=== PATIENT | female | born 1985 | race Caucasian/White ===

== ENCOUNTER 2020-08-23 15:26 | Inpatient (IN) ==
[2020-08-23] MEDS ORDERED: MULTI-VITAMIN INFUSION 10 ML, THIAMINE HCL 100 MG, FOLIC ACID 1 MG in SODIUM CHLORIDE 0... IV ONE (15:58)
[2020-08-23] MEDS ORDERED: ONDANSETRON INJ 2 MG/ML 2 ML VIAL IV STA (15:58)
--- NOTE | 2020-08-23 16:05 | Emergency Department Note ---
History of Present Illness General Chief complaint: Alcohol Withdrawal Time Seen by Provider: 08/23/20 15:50 Source: patient History of Present Illness Provider complaint: Chest pain Onset (ago): hour(s) Location: chest Radiation: non-radiation Pain Consistency: + constant Maximum Pain Intensity: 5 Quality: + dull Relieved By: + none Exacerbated By: + movement and + other (Palpation) Associated symptoms: + cough ("Regular cough "), + nausea/vomiting and + other (Diarrhea); no fever/chills, no headaches and no shortness of breath This is a 35-year-old female who presents with several complaints today. She states that she did not feel well this morning. She feels lightheaded but cannot explain further why she does not feel well. She does state that she has had chest pain since this morning which she describes as a dull pain in the sternal area. She states it is worse if she moves around or touches the area. She denies any associated shortness of breath. She states that she has a "regular cough "she states that she has had her COVID-19 vaccinations. She denies any fever chills. She does state that she has had vomiting and diarrhea as well without abdominal pain. She denies any urinary symptoms. She states that the chest pain she has today is similar to chest pain she has had in the past. She denies any leg swelling or pain. She denies . She states that she only drank a beer today. She denies any headache and states that she has not fallen or injured her head. Home Medications Medication Instructions Recorded Confirmed Type albuterol sulfate 2 puff INHALATION QID PRN 07/21/20 08/23/20 History budesonide-formoterol [Symbicort] 2 puff INHALATION BID 07/21/20 08/23/20 History docusate sodium [Colace] 100 mg PO BID PRN 08/19/20 08/23/20 History naproxen sodium [Aleve] 220 mg PO BID PRN 08/19/20 08/23/20 History aspirin 325 mg PO Q4H PRN 08/23/20 08/23/20 History Allergies Allergy/AdvReac Type Severity Reaction Status Date / Time amoxicillin Allergy Intermediate Hives Verified 08/19/20 20:09 clavulanic acid Allergy Intermediate Hives Verified 08/19/20 20:09 [From Augmentin] Penicillins Allergy Intermediate Hives Verified 08/19/20 20:09 sulfamethoxazole Allergy Intermediate Hives Verified 08/19/20 20:09 [From Septra] trimethoprim [From Septra] Allergy Intermediate Hives Verified 08/19/20 20:09 famotidine [From Pepcid] Allergy Mild Red Skin Unverified 08/19/20 20:10 Splotches Past Med/Surg History Medical History Kidney stone Pulmonary nodule seen on imaging study Tobacco use disorder Surgical History No significant past surgical history Social History Smoking Status: Never smoker Tobacco Type: Cigarettes Preferred Language: Amharic Feels Safe at Home: Yes Review of Systems See HPI for pertinent positives & negatives. and A total of 10 systems reviewed and were otherwise negative Physical Exam Vital Signs Vital Signs - 24 hr 08/23/20 15:29 08/23/20 15:31 08/23/20 15:41 Temperature 37.7 C H Temperature Source Oral Pulse Rate 108 H 115 H 109 H Pulse Rate from SpO2 Sensor 107 H 109 H Pulse Rhythm Regular Pulse Strength Normal Respiratory Rate 18 20 22 Respiratory Effort / Characteristics Non-Labored Spontaneous Respiratory Depth Normal Respiratory Pattern Regular Blood Pressure 151/102 H 151/102 H Blood Pressure Mean 118 118 Blood Pressure Position Sitting Pulse Oximetry 96 98 97 Oxygen Delivery Method Room Air Sepsis Recent Fever Within 48 Hours No Sepsis New/Unexplained Change in Mental Status No Sepsis Action Taken by Nursing No Action Required 08/23/20 16:00 08/23/20 16:05 08/23/20 16:13 Temperature Temperature Source Pulse Rate 112 H 122 H 121 H Pulse Rate from SpO2 Sensor 110 H Pulse Rhythm Pulse Strength Respiratory Rate 16 20 17 Respiratory Effort / Characteristics Respiratory Depth Respiratory Pattern Blood Pressure 132/98 Blood Pressure Mean 109 Blood Pressure Position Pulse Oximetry 96 96 Oxygen Delivery Method Room Air Sepsis Recent Fever Within 48 Hours Sepsis New/Unexplained Change in Mental Status Sepsis Action Taken by Nursing 08/23/20 16:14 08/23/20 16:30 08/23/20 16:31 Temperature Temperature Source Pulse Rate 115 H 105 H 105 H Pulse Rate from SpO2 Sensor 114 H 105 H 106 H Pulse Rhythm Pulse Strength Respiratory Rate 23 17 18 Respiratory Effort / Characteristics Respiratory Depth Respiratory Pattern Blood Pressure 132/98 Blood Pressure Mean 109 Blood Pressure Position Pulse Oximetry 96 95 95 Oxygen Delivery Method Sepsis Recent Fever Within 48 Hours Sepsis New/Unexplained Change in Mental Status Sepsis Action Taken by Nursing 08/23/20 17:00 08/23/20 17:01 08/23/20 17:30 Temperature Temperature Source Pulse Rate 105 H 105 H 101 H Pulse Rate from SpO2 Sensor 106 H 101 H 102 H Pulse Rhythm Pulse Strength Respiratory Rate 15 16 Respiratory Effort / Characteristics Respiratory Depth Respiratory Pattern Blood Pressure 143/88 H 133/92 Blood Pressure Mean 106 105 Blood Pressure Position Pulse Oximetry 95 96 96 Oxygen Delivery Method Sepsis Recent Fever Within 48 Hours Sepsis New/Unexplained Change in Mental Status Sepsis Action Taken by Nursing 08/23/20 17:31 08/23/20 18:09 08/23/20 18:10 Temperature Temperature Source Pulse Rate 99 H 103 H Pulse Rate from SpO2 Sensor 98 H 105 H 103 H Pulse Rhythm Pulse Strength Respiratory Rate 12 Respiratory Effort / Characteristics Respiratory Depth Respiratory Pattern Blood Pressure 132/105 H Blood Pressure Mean 114 Blood Pressure Position Pulse Oximetry 95 97 96 Oxygen Delivery Method Sepsis Recent Fever Within 48 Hours Sepsis New/Unexplained Change in Mental Status Sepsis Action Taken by Nursing 08/23/20 18:30 08/23/20 18:31 Temperature Temperature Source Pulse Rate 101 H 100 H Pulse Rate from SpO2 Sensor 103 H 99 H Pulse Rhythm Pulse Strength Respiratory Rate 17 19 Respiratory Effort / Characteristics Respiratory Depth Respiratory Pattern Blood Pressure 137/94 Blood Pressure Mean 108 Blood Pressure Position Pulse Oximetry 96 95 Oxygen Delivery Method Sepsis Recent Fever Within 48 Hours Sepsis New/Unexplained Change in Mental Status Sepsis Action Taken by Nursing Constitutional: Vital signs reviewed. Eyes: Pupils are equal round reactive to light. Conjunctiva are noninjected. ENT: Pharynx is clear without erythema or exudate. Mucous membranes are dry. Neck supple without meningeal signs. Respiratory: Clear to auscultation bilaterally. Breath sounds are equal bilaterally. Cardiovascular: Mild tachycardia. Heart rate 105. GI: Soft, nondistended and nontender. Bowel sounds are present. Musculoskeletal: No peripheral edema. No lower extremity tenderness. Tenderness to the mid sternum. Integumentary: No cyanosis. or jaundice. Neurological: The patient is very somnolent but does follow commands and answers questions. She moves all extremities. Resting tremors. Psychiatric: She appears intoxicated. Course Administered Medications Discontinued Medications Multivitamins 10 ml/ Thiamine HCl 100 mg/ Folic Acid 1 mg/Sodium Chloride 1,011.2 mls @ 1,011.2 mls/hr IV .Q1H ONE Stop: 08/23/20 16:57 Last Admin: 08/23/20 17:39 Dose: 1,011.2 mls/hr Documented by: [id number] Lorazepam (Ativan) 1 mg in 2 mls @ 2 mls/min IV NOW STA Stop: 08/23/20 16:16 Last Admin: 08/23/20 16:18 Dose: 2 mls/min Documented by: [id number] Ondansetron HCl (Ondansetron Inj 2 Mg/Ml 2 Ml Vial) 4 mg IV NOW STA Stop: 08/23/20 15:59 Last Admin: 08/23/20 16:12 Dose: 4 mg Documented by: [id number] Critical Care Time Critical Care Time: Yes Total Critical Care Time: 35 I have personally spent approximately 35 minutes of critical care time in the direct management of this patient. This includes bedside care, interpretation of diagnostic studies, and testing, discussion with consultants, patient, and family members, and other required patient management activities. These minutes are in excess of all separately billable procedures. Medical Decision Making Differential Diagnosis Alcohol intoxication, alcohol withdrawal, metabolic derangement, pleurisy, costochondritis, aspiration pneumonia Medical Records Attestation: I reviewed the patient's medical records. I did perform a limited focused review of portions of the patient's old chart on the electronic medical record. The patient was seen here for chest pain July 21 and had a negative CT of the chest with IV contrast other than pulmonary nodules. She was seen here again for alcohol intoxication and chest pain August [address] angiogram of her chest which again showed nodules without any pulmonary embolism or acute abnormality. She was seen again 2 days later for flank pain and had a CT of the abdomen pelvis which did not demonstrate any acute abnormalities. Home Medications Current Medication List: was personally reviewed by me Laboratory Data Attestation: I reviewed the patient's lab results. Result diagrams: 08/23/20 15:50 08/23/20 15:50 Lab Results 08/23/20 08/23/20 08/23/20 Range/Units 15:50 15:50 16:20 WBC 6.10 (4.8-10.8) K/uL RBC 4.79 (4.2-5.4) M/uL Hgb 15.3 (12.0-16.0) g/dL Hct 44.5 (37-47) % MCV 92.9 (80-100) fL MCH 31.9 (25-34) pg MCHC 34.4 (32-36) g/dL RDW Std Deviation 50.0 H (36.4-46.3) fL RDW Coeff of Yulissa 15.0 H (11.5-14.5) % Plt Count 348 (130-400) K/uL MPV 9.2 (7.4-10.4) fL Immature Gran % (Auto) 0.2 % Neut % (Auto) 62.8 % Lymph % (Auto) 27.0 % [place] % (Auto) 9.5 % Eos % (Auto) 0.2 % Baso % (Auto) 0.3 % Neut # (Auto) 3.83 (1.4-6.5) K/uL Lymph # (Auto) 1.65 (1.2-3.4) K/uL [place] # (Auto) 0.58 (0.11-0.59) K/uL Eos # (Auto) 0.01 (0-0.5) K/uL Baso # (Auto) 0.02 (0-0.2) K/uL Immature Gran # (Auto) 0.01 (0.00-0.02) K/uL Sodium 140 (136-145) mmol/L Potassium 3.2 L (3.5-5.1) mmol/L Chloride 106 (98-107) mmol/L Carbon Dioxide 22 (21-32) mmol/L Anion Gap 12.0 H (3-11) BUN 12 (7-18) mg/dl Creatinine 0.74 (0.6-1.2) mg/dl Est Cr Clr Drug Dosing 113.3 ml/min Est GFR ( Amer) 123.4 ml/min Est GFR (Non-Af Amer) 106.4 ml/min BUN/Creatinine Ratio 16.2 (10-20) Glucose 149 H (70-99) mg/dl Calcium 8.4 L (8.5-10.1) mg/dl Total Bilirubin 0.6 (0.2-1) mg/dl AST 26 (15-37) U/L ALT 37 (12-78) U/L Alkaline Phosphatase 97 (45-117) U/L Troponin I < 0.015 (0-0.045) ng/ml Total Protein 7.8 (6.4-8.2) gm/dl Albumin 3.9 (3.4-5.0) gm/dl Globulin 3.9 (2.5-4.0) gm/dl Albumin/Globulin Ratio 1.0 (0.9-2) Lipase 152 (73-393) U/L Ethyl Alcohol mg/dL 18.8 H (0-3) mg/dl COVID-19 Eval Order 08/23/20 Range/Units 19:05 WBC (4.8-10.8) K/uL RBC (4.2-5.4) M/uL Hgb (12.0-16.0) g/dL Hct (37-47) % MCV (80-100) fL MCH (25-34) pg MCHC (32-36) g/dL RDW Std Deviation (36.4-46.3) fL RDW Coeff of Yulissa (11.5-14.5) % Plt Count (130-400) K/uL MPV (7.4-10.4) fL Immature Gran % (Auto) % Neut % (Auto) % Lymph % (Auto) % [place] % (Auto) % Eos % (Auto) % Baso % (Auto) % Neut # (Auto) (1.4-6.5) K/uL Lymph # (Auto) (1.2-3.4) K/uL [place] # (Auto) (0.11-0.59) K/uL Eos # (Auto) (0-0.5) K/uL Baso # (Auto) (0-0.2) K/uL Immature Gran # (Auto) (0.00-0.02) K/uL Sodium (136-145) mmol/L Potassium (3.5-5.1) mmol/L Chloride (98-107) mmol/L Carbon Dioxide (21-32) mmol/L Anion Gap (3-11) BUN (7-18) mg/dl Creatinine (0.6-1.2) mg/dl Est Cr Clr Drug Dosing ml/min Est GFR ( Amer) ml/min Est GFR (Non-Af Amer) ml/min BUN/Creatinine Ratio (10-20) Glucose (70-99) mg/dl Calcium (8.5-10.1) mg/dl Total Bilirubin (0.2-1) mg/dl AST (15-37) U/L ALT (12-78) U/L Alkaline Phosphatase (45-117) U/L Troponin I (0-0.045) ng/ml Total Protein (6.4-8.2) gm/dl Albumin (3.4-5.0) gm/dl Globulin (2.5-4.0) gm/dl Albumin/Globulin Ratio (0.9-2) Lipase (73-393) U/L Ethyl Alcohol mg/dL (0-3) mg/dl COVID-19 Eval Order Covid19 at [facility] Imaging Data Radiologist's Impression: Chest X-Ray 08/23/20 15:58 SINGLE VIEW CHEST CLINICAL HISTORY: Atypical chest pain. FINDINGS: An AP, portable, upright chest radiograph is correlated with chest CT dated 08/17/2020. The cardiomediastinal silhouette is unremarkable. The lungs and pleural spaces are clear. No pneumothorax is seen. The bony thorax is grossly intact. IMPRESSION: No active disease in the chest. ACT 112: Negative or not required by law. Electronically signed by: Zach Back M.D. 08/23/2020 5:[address] 08/23/20 17:20 CT SCAN OF THE BRAIN WITHOUT IV CONTRAST CLINICAL HISTORY: Hallucinations. Change in mental status. Alcohol withdrawal. COMPARISON STUDY: No priors. TECHNIQUE: Unenhanced axial CT scan of the brain is performed from the vertex to the skull base. A dose lowering technique was utilized adhering to the principles of ALARA. The patient was scanned twice due to motion artifact. CT DOSE: 1784.44 mGy.cm FINDINGS: Brain parenchyma: The brain parenchyma is normal in appearance. There is no hemorrhage, mass effect, or evidence of acute territorial ischemia by CT criteria. Epperson-white matter differentiation is preserved. No extra-axial fluid collection is seen. Ventricles, sulci, cisterns: Normal in configuration. Intracranial vasculature: The visualized intracranial vasculature at the skull base is normal in appearance. Calvarium: Unremarkable. Sinuses and mastoids: The visualized paranasal sinuses are clear. The mastoid air cells are well pneumatized. Orbits: The bony orbits are grossly intact. IMPRESSION: No acute intracranial abnormality. ACT 112: Negative or not required by law. Electronically signed by: Zach Back M.D. 08/23/2020 6:18 PM ECG Data Attestation: I personally reviewed and interpreted this ECG as follows: Indication: + chest pain Rhythm: + sinus tachycardia ECG [place]: + Normal ECG ST segments: no ST elevation ECG Findings: no PVCs MDM Narrative I did evaluate the patient as noted above. The patient is presenting with chest pain and not feeling well but cannot further describe her symptoms other than feeling very lightheaded and vomiting. She has not had alcohol except for 1 can of beer today. She is initially very somnolent on my evaluation but does answer questions. She is somewhat slow to respond to these questions. Once I left the room the nurses called me back to state that the patient was extremely agitated, trying to get out of bed and hallucinating. IV access was established. I did treat her with Ativan 1 mg IV. She was also given a banana bag IV as well as Zo tera IV. I did place an order for continuous cardiac monitoring. The monitor showed sinus tachycardia at a rate of 105 bpm. I did order and personally review the patient's 12-lead EKG as described above. She has sinus tachycardia without dysrhythmia. I did order and personally reviewed the images of the patient's chest x-ray as described above. There is no evidence of aspiration pneumonia or acute process. I did reassess the patient. She is very somnolent at this time and her heart rate and blood pressure has improved. I did order and review the patient's blood work as noted in the electronic medical record. CBC is unremarkable without leukocytosis or anemia. Electrolytes demonstrate a potassium of 3.2. Serum alcohol is 18. I did order a CT of the head. I did review the images myself as well as the radiology report as described above. There is no evidence of acute intracranial abnormality. I did reassess the patient. She is less somnolent at this time and her heart rate and blood pressure are increasing. I did hold off on further benzodiazepine treatment as the patient is still rather somnolent. I did talk to her about her test results and she stated that she wished to be hospitalized and she wants to stop drinking. She does state that she had withdrawal seizures about 2 years ago. I did order a COVID-19 test. I did discuss the case with the hospitalist and case worker. Impression & Plan Impending delirium tremens, Acute hypokalemia Discharge Plan Visit Data Chief Complaint: Alcohol Withdrawal ED Provider: Saurabh Connors Discharge Problem: Impending delirium tremens, Acute hypokalemia Patient Disposition: Being Evaluated by Hospitalist Forms Stand Alone Forms: [facility], Suicide Prevention Resources Prescriptions Prescriptions: No Action albuterol sulfate 90 mcg/actuation Hfa Aerosol Inhaler 2 puff INHALATION QID PRN (Reason: Shortness Of Breath Or Wheezing) RF: 0 budesonide-formoterol [Symbicort] 80-4.5 mcg/actuation Hfa Aerosol Inhaler 2 puff INHALATION BID RF: 0 docusate sodium [Colace] 100 mg capsule 100 mg PO BID PRN (Reason: Constipation) RF: 0 naproxen sodium [Aleve] 220 mg Tablet 220 mg PO BID PRN (Reason: Pain) RF: 0 aspirin 325 mg Tablet 325 mg PO Q4H PRN (Reason: Pain) RF: 0 Referrals Referrals: PCP,NO [Primary Care Provider] -
[2020-08-23 16:08] LABS: Basophils # (auto) 0.02 K/uL (0-0.2); Basophils % (auto) 0.3 %; Eosinophils # (auto) 0.01 K/uL (0-0.5); Eosinophils % (auto) 0.2 %; Hematocrit (blood only) 44.5 % (37-47); Hemoglobin 15.3 g/dL (12.0-16.0); Immature Granulocytes # (auto) 0.01 K/uL (0.00-0.02); Immature Granulocytes % (auto) 0.2 %; Lymphocytes # (auto) 1.65 K/uL (1.2-3.4); Mean Corpuscular Hemoglobin 31.9 pg (25-34); Mean Corpuscular Hgb Conc 34.4 g/dL (32-36); Mean Corpuscular Volume 92.9 fL (80-100); Mean Platelet Volume 9.2 fL (7.4-10.4); Monocytes # (auto) 0.58 K/uL (0.11-0.59); Monocytes % (auto) 9.5 %; Neutrophils # (auto) 3.83 K/uL (1.4-6.5); Neutrophils % (auto) 62.8 %; Platelet Count 348 K/uL (130-400); Red Blood Count 4.79 M/uL (4.2-5.4)
[2020-08-23] MEDS ORDERED: LORazepam 1 MG/2 ML VIAL IV STA (16:15)
[2020-08-23 16:26] LABS: Alanine Aminotransferase 37 U/L (12-78); Albumin Level 3.9 gm/dl (3.4-5.0); Aspartate Aminotransferase 26 U/L (15-37); BUN Creatinine Ratio 16.2 (10-20); Blood Urea Nitrogen 12 mg/dl (7-18); Calcium 8.4 mg/dl (8.5-10.1); Carbon Dioxide 22 mmol/L (21-32); Chloride 106 mmol/L (98-107); Creatinine Clr Calc Pharmacy 113.3 ml/min; Est GFR (African American) 123.4 ml/min; Est GFR (Non-African American) 106.4 ml/min; Glucose 149 mg/dl (70-99); Lipase 152 U/L (73-393); Potassium 3.2 mmol/L (3.5-5.1); Sodium 140 mmol/L (136-145)
[2020-08-23 16:30] LABS: Alkaline Phosphatase 97 U/L (45-117); Bilirubin,Total 0.6 mg/dl (0.2-1); Globulin 3.9 gm/dl (2.5-4.0); Total Protein 7.8 gm/dl (6.4-8.2); Troponin I < 0.015 ng/ml (0-0.045)
--- NOTE | 2020-08-23 17:15 | XRay Report ---
SINGLE VIEW CHEST CLINICAL HISTORY: Atypical chest pain. FINDINGS: An AP, portable, upright chest radiograph is correlated with chest CT dated 08/17/2020. The cardiomediastinal silhouette is unremarkable. The lungs and pleural spaces are clear. No pneumothorax is seen. The bony thorax is grossly intact. IMPRESSION: No active disease in the chest. ACT 112: Negative or not required by law. Electronically signed by: Zach Back M.D. 08/23/2020 5:14 PM
--- NOTE | 2020-08-23 18:20 | CT Scan Report ---
CT SCAN OF THE BRAIN WITHOUT IV CONTRAST CLINICAL HISTORY: Hallucinations. Change in mental status. Alcohol withdrawal. COMPARISON STUDY: No priors. TECHNIQUE: Unenhanced axial CT scan of the brain is performed from the vertex to the skull base. A d ose lowering technique was utilized adhering to the principles of ALARA. The patient was scanned twic e due to motion artifact. CT DOSE: 1784.44 mGy.cm FINDINGS: Brain parenchyma: The brain parenchyma is normal in appearance. There is no hemorrhage, mass effect, or evidence of acute territorial ischemia by CT criteria. Epperson-white matter differentiation is preser lisa. No extra-axial fluid collection is seen. Ventricles, sulci, cisterns: Normal in configuration. Intracranial vasculature: The visualized intracranial vasculature at the skull base is normal in appe arance. Calvarium: Unremarkable. Sinuses and mastoids: The visualized paranasal sinuses are clear. The mastoid air cells are well pneu matized. Orbits: The bony orbits are grossly intact. IMPRESSION: No acute intracranial abnormality. ACT 112: Negative or not required by law. Electronically signed by: Zach aBck M.D. 08/23/2020 6:18 PM
[2020-08-23] MEDS ORDERED: LORazepam 0.5 MG/1 ML VIAL IV STA (20:12)
[2020-08-23] MEDS ORDERED: ONDANSETRON INJ 2 MG/ML 2 ML VIAL IV PRN (20:32)
[2020-08-23] MEDS ORDERED: POTASSIUM CHLORIDE / WTR 10 MEQ/100 ML PLCT IV STA (20:32)
--- NOTE | 2020-08-23 20:44 | History & Physical Report ---
Date of Service August 23, 2020 Assessment & Plan (1) Alcohol withdrawal: 35 yo F Hx alcohol use disorder admitted for alcohol withdrawal with perceptual disturbance. Alcohol use disorder, in active withdrawal: - Presented to ER with sensation of impending doom, confusion, chest pressure/heart racing, nausea/vomiting. - CXR normal, EKG with sinus tachycardia, CT Head without acute pathology. - History of alcohol use disorder, reports she drinks 5-6 16oz cans of beer daily. - Endorses one 16oz can today around 2pm before she started to feel unwell. EtOH level in ER today 18.8. - Last seen 08/19 for abdominal pain in ER, as well as on 08/17 /and 07/21 for vague complaints; at these visits EtOH level was elevated as well. - Desires to quit drinking alcohol, and reports success in the past with quitting. Has been drinking as above for at least the last several months. - Did provide patient with my name to be seen when discharged from hospital. Patient does not currently have a PCP. Has been on medications for EtOH cessation in the past. - Given banana bag in ER; will continue daily thiamine and folate supplement. - Placed on clonidine 0.1mg PO BID, with AWSS active protocol given continued symptoms. - Med [facility] for cardiac monitoring, AWSS monitoring. - Zofran prn nausea/vomiting. - Restricted to clears given no N/V in ER; will make NPO if N/V despite clears. Abdominal pain / Hepatic Steatosis: - Mild abdominal pain RUQ on exam. - CTAP performed 08/19 (ER visit for abdominal pain) without evidence of acute pathology. - Notable for hepatic steatosis and hepatomegaly, could be the cause of her symptoms of mild RUQ pain. - LFTs, lipase normal this visit. - Does take aspirin 325 at home frequently, will check salicylate level. - UA with reflex UCx ordered, pending. Chest pain: - Complaints on previous ER visits of vague chest pain. - CTA Chest 08/17 without PE, did show 6mm lingular pulmonary nodule. - This visit EKG with sinus tachycardia, troponin negative. - Unlikely to be anginal in cause, appears to correlate with anxiety and alcohol withdrawal. - Repeat troponin ordered for 10pm. Pulmonary nodule: - Noted on CTA Chest 08/17; likely needs outpatient follow up. Code Status: FULL CODE FEN: Clear liquid diet, if intolerant moving forward would make NPO DVT ppx: low risk given age and ambulatory function, ambulate ad tarik with assistance given presenting symptoms, with SCDs when in bed Dispo: Med/Surg with Telemetry History of Present Illness Chief Complaint: chest pain, nausea, vomiting Primary Care Provider: NO PCP 35 yo F Hx alcohol use disorder presented to ER this afternoon for complaints of "feeling unwell", abdominal pain, chest pressure. Has been seen several times over the last week for similar symptoms. She reports alcohol use history and admits to drinking about 5-6 16oz beers daily. Today had one (last drink around 2pm) which is around when she started feeling unwell. No complaints of shortness of breath. Has had alcohol withdrawal in the past, does not report history of seizures. She has also stopped drinking in the past with the help of oral medications. ER course today included CT Head (normal), labwork without elevation in LFTs or lipase, elevated EtOH level, K of 3.2. Vitals with tachycardia, elevated BP, nearly febrile at 37.7degrees C. Previous ER course over the last week includes CTA Chest negative for PE, did note 6mm pulmonary nodule in lingula; CTAP noted hepatic steatosis and hepatomegaly. On my interview patient endorses sensation of repeated humberto vu, asking me several times "did you tell me that already?". Does not endorse current chest pain or pressure, nausea. Admits to some RUQ mild abdominal pain. Also admits to urinary frequency. Overall reports desire to quit using alcohol, but is unsure what medium she will use to quit (inpatient, outpatient, AA, etc). Patient does not have a PCP. Allergies Allergy/AdvReac Type Severity Reaction Status Date / Time amoxicillin Allergy Intermediate Hives Verified 08/25/20 02:27 clavulanic acid Allergy Intermediate Hives Verified 08/25/20 02:27 [From Augmentin] Penicillins Allergy Intermediate Hives Verified 08/25/20 02:27 sulfamethoxazole Allergy Intermediate Hives Verified 08/25/20 02:27 [From Septra] trimethoprim [From Septra] Allergy Intermediate Hives Verified 08/25/20 02:27 famotidine [From Pepcid] Allergy Mild Red Skin Unverified 08/25/20 02:27 Splotches Home Medications Medication Instructions Recorded Confirmed Type albuterol sulfate 2 puff INHALATION QID PRN 07/21/20 08/25/20 History budesonide-formoterol [Symbicort] 2 puff INHALATION BID 07/21/20 08/25/20 History docusate sodium [Colace] 100 mg PO BID PRN 08/19/20 08/25/20 History naproxen sodium [Aleve] 220 mg PO BID PRN 08/19/20 08/25/20 History aspirin 325 mg PO Q4H PRN 08/23/20 08/25/20 History Past Med/Surg History Medical History Kidney stone Pulmonary nodule seen on imaging study Tobacco use disorder Surgical History No significant past surgical history Social History Smoking Status: Current every day smoker Tobacco Type: Cigarettes Cigarettes Per Day: 20; Second Hand Exposure: Yes; Hx Alcohol Use: Yes Alcohol type: hard liquor Hx Substance Use: No Preferred Language: Bruneian Communication Ability: Effective Braider Operator Required: No Beliefs That Will Affect Care: None Current Living Situation: Parent and Family Current Living Situation Comment: mom and friend Other Information That Helps Us Care for You: No Feels Safe at Home: Yes Safety Concerns: Feels Safe At This Time Assistive Devices: None Review of Systems Review of Systems: All systems reviewed & are unremarkable except as noted in HPI & below Constitutional: + malaise; no fever and no chills Respiratory: no cough and no dyspnea Cardiovascular: no chest pain, no palpitations and no edema Additional Comments: Reports can feel her heart racing Gastrointestinal: + abdominal pain (mild, RUQ); no constipation and no diarrhea/loose stools Genitourinary: + urinary frequency; no dysuria and no hematuria Neurologic: no unsteadiness, no generalized weakness and no tremor(s) Psychiatric: + anxiety Physical Exam Constitutional: WD/WN, vitals as above Eyes: PERRL, conjunctivae normal, anicteric sclerae ENMT: external ear and nose normal, oropharynx normal Neck: normal visual inspection Respiratory: normal respiratory effort, lungs clear to auscultation Cardiovascular: RRR, no murmur, no edema Gastrointestinal (Abdomen): normal bowel sounds, soft, nontender, no hepatosplenomegaly Musculoskeletal: no cyanosis or clubbing, extremities motor strength 5/5 Skin: no rashes, warm and dry Neurologic: AAOx3, normal speech. PERRLA, EOMI, no nystagmus. Bilateral UE, LE, and face without sensory or motor deficits. No tremor, normal gait from walking to bed from bathroom Psychiatric: Orientation: alert and oriented x 3 Affect: + anxious affect reports feeling like she is "hallucinating" on further inquiry has sensation of repeated humberto vu Results & Data Results & Data ([facility]) Vital Signs (Past 12 Hours) Vital Signs Temp Pulse Resp BP Pulse Ox 08/23/20 18:31 100 H 19 95 08/23/20 18:30 101 H 17 137/94 96 08/23/20 18:10 103 H 12 132/105 H 96 08/23/20 18:09 97 08/23/20 17:31 99 H 95 08/23/20 17:30 101 H 133/92 96 08/23/20 17:01 105 H 16 96 08/23/20 17:00 105 H 15 143/88 H 95 08/23/20 16:31 105 H 18 95 08/23/20 16:30 105 H 17 132/98 95 08/23/20 16:14 115 H 23 96 08/23/20 16:13 121 H 17 132/98 08/23/20 16:05 122 H 20 96 08/23/20 16:00 112 H 16 96 08/23/20 15:41 109 H 22 97 08/23/20 15:31 37.7 C H 115 H 20 151/102 H 98 08/23/20 15:29 108 H 18 151/102 H 96 Supervising Physician Co-Signing Physician Notes Attending addendum: I have physically seen this patient, have supervised the medical residents activities, and agree with the H&P unless as otherwise noted. Assessment and Plan: Alcohol withdrawal/alcohol use disorder- Admit to monitored bed AWSS protocol with IV Ativan Start clonidine 0.1 mg p.o. twice daily and titrate as needed IV fluids as noted Zofran 4 mg IV every 6 hours as needed Famotidine 20 mg IV every 12 hours Cessation counseling Remaining orders and notations as noted Resident Activity Tracking Resident Involvement: Resident Care Provided Care Provided: Adult Hospital Medicine (1) Alcohol withdrawal Complication of substance-induced condition: with perceptual disturbance Qualified Code(s): F10.232 - Alcohol dependence with withdrawal with perceptual disturbance
[2020-08-23] MEDS ORDERED: ALBUTEROL HFA 8 GM INHALER INH PRN (21:20)
[2020-08-23] MEDS ORDERED: POLYETHYLENE (MIRALAX) 17 GM PACK PO PRN (21:20)
[2020-08-23] MEDS: LORazepam 1 MG TAB PO PRN ×2 (21:36→23:42)
[2020-08-23] MEDS ORDERED: FLUTICASONE/VILANTEROL 200/25MCG 14 PUFFS/INHALER INH SCH (22:00)
[2020-08-23] MEDS: FOLIC ACID 1 MG TAB PO SCH (22:05)
[2020-08-23] MEDS: THIAMINE HCL 100 MG TAB PO SCH (22:05)
[2020-08-23] MEDS: POTASSIUM CHLORIDE / WTR 10 MEQ/100 ML PLCT IV SCH ×2 (22:06→23:13)
[2020-08-23] MEDS: cloNIDine HCL 0.1 MG TAB PO SCH (22:07)
[2020-08-24] MEDS: POTASSIUM CHLORIDE / WTR 10 MEQ/100 ML PLCT IV SCH ×2 (00:12→01:17)
[2020-08-24] MEDS: LORazepam 1 MG TAB PO PRN ×2 (00:46→09:52)
[2020-08-24] MEDS: FOLIC ACID 1 MG TAB PO SCH (08:48)
[2020-08-24] MEDS: THIAMINE HCL 100 MG TAB PO SCH (08:48)
[2020-08-24] MEDS: cloNIDine HCL 0.1 MG TAB PO SCH (08:48)
[2020-08-24 08:58] LABS: Basophils # (auto) 0.02 K/uL (0-0.2); Basophils % (auto) 0.3 %; Eosinophils % (auto) 1.6 %; Hemoglobin 13.4 g/dL (12.0-16.0); Immature Granulocytes # (auto) 0.02 K/uL (0.00-0.02); Immature Granulocytes % (auto) 0.3 %; Lymphocytes # (auto) 2.25 K/uL (1.2-3.4); Mean Corpuscular Hemoglobin 31.5 pg (25-34); Mean Corpuscular Hgb Conc 33.5 g/dL (32-36); Mean Corpuscular Volume 94.1 fL (80-100); Mean Platelet Volume 9.7 fL (7.4-10.4); Monocytes # (auto) 0.62 K/uL (0.11-0.59); Monocytes % (auto) 9.9 %; Neutrophils # (auto) 3.24 K/uL (1.4-6.5); Neutrophils % (auto) 51.9 %; Platelet Count 309 K/uL (130-400); RDW Coefficient of Variation 14.9 % (11.5-14.5); RDW Standard Deviation 50.5 fL (36.4-46.3); Red Blood Count 4.25 M/uL (4.2-5.4); White Blood Count 6.25 K/uL (4.8-10.8)
[2020-08-24 09:22] LABS: Albumin Level 3.4 gm/dl (3.4-5.0); BUN Creatinine Ratio 15.7 (10-20); Calcium 7.2 mg/dl (8.5-10.1); Est GFR (African American) 101.4 ml/min; Est GFR (Non-African American) 87.5 ml/min; Potassium 3.4 mmol/L (3.5-5.1)
[2020-08-24 09:28] LABS: Bilirubin,Total 1.4 mg/dl (0.2-1); Globulin 3.5 gm/dl (2.5-4.0); Total Protein 6.9 gm/dl (6.4-8.2)
[2020-08-24 09:55] LABS: Appearance Urine Cloudy (Clear); Bacteria Urine Automated 2+ (Negative); Bilirubin Urine Negative (Negative); Blood Urine Negative (Negative); Color Urine Orange; Epithelial Cell Urine Auto >30 /lpf (0-5); Glucose Urine UA Negative (Negative); Ketones Urine Trace (Negative); Leukocyte Esterase Urine 1+ (Negative); Nitrite Urine Positive (Negative); Protein Urine Negative (Negative); RBC Urine Automated 0-4 /hpf (0-4); Specific Gravity Urine 1.021 (1.000-1.030); Urobilinogen Urine Negative (Negative); WBC Urine Automated >30 /hpf (0-5); pH Urine 5.5 (4.5-7.5)
--- NOTE | 2020-08-24 10:07 | Hospitalist Progress Note ---
Date of Service August 24, 2020 Assessment & Plan (1) Alcohol withdrawal: 35 yo F Hx alcohol use disorder admitted for alcohol withdrawal with perceptual disturbance. Alcohol use disorder, in active withdrawal: - Presented to ER with sensation of impending doom, confusion, chest pressure/heart racing, nausea/vomiting. - CXR normal, EKG with sinus tachycardia, CT Head without acute pathology. - History of alcohol use disorder, reports she drinks 5-6 16oz cans of beer daily. - Endorses one 16oz can today around 2pm before she started to feel unwell. EtOH level in ER today 18.8. - Last seen 08/19 for abdominal pain in ER, as well as on 08/17 /and 07/21 for vague complaints; at these visits EtOH level was elevated as well. - Desires to quit drinking alcohol, and reports success in the past with quitting. Has been drinking as above for at least the last several months. - Did provide patient with my name to be seen when discharged from hospital. Patient does not currently have a PCP. Has been on medications for EtOH cessation in the past. - Given banana bag in ER; will continue daily thiamine and folate supplement. - Placed on clonidine 0.1mg PO BID, with AWSS active protocol given continued symptoms. - Med [facility] for cardiac monitoring, AWSS monitoring. - Zofran prn nausea/vomiting. - Restricted to clears given no N/V in ER; will make NPO if N/V despite clears. Abdominal pain / Hepatic Steatosis: - Mild abdominal pain RUQ on exam. - CTAP performed 08/19 (ER visit for abdominal pain) without evidence of acute pathology. - Notable for hepatic steatosis and hepatomegaly, could be the cause of her symptoms of mild RUQ pain. - LFTs, lipase normal this visit. - Does take aspirin 325 at home frequently, will check salicylate level. - UA with reflex UCx ordered, pending. Chest pain: - Complaints on previous ER visits of vague chest pain. - CTA Chest 08/17 without PE, did show 6mm lingular pulmonary nodule. - This visit EKG with sinus tachycardia, troponin negative. - Unlikely to be anginal in cause, appears to correlate with anxiety and alcohol withdrawal. - Repeat troponin ordered for 10pm. Pulmonary nodule: - Noted on CTA Chest 08/17; likely needs outpatient follow up. Code Status: FULL CODE FEN: Clear liquid diet, if intolerant moving forward would make NPO DVT ppx: low risk given age and ambulatory function, ambulate ad tarik with assistance given presenting symptoms, with SCDs when in bed Dispo: Med/Surg with Telemetry Admission and Anticipated Discharge Date Admission Date: August 23, 2020 Review of Systems Review of Systems: All systems reviewed & are unremarkable except as noted in Subjective Results & Data Results & Data ([facility]) Vital Signs (Past 12 Hours) Vital Signs Temp Pulse Pulse Resp BP Pulse Ox 08/24/20 07:05 36.7 C 88 20 116/76 95 08/24/20 03:19 36.7 C 99 H 17 123/82 95 08/24/20 00:56 95 H 08/24/20 00:43 36.8 C 103 H 16 126/89 95 08/23/20 23:01 37.3 C 102 H 20 133/89 97 (1) Alcohol withdrawal Complication of substance-induced condition: with perceptual disturbance Qualified Code(s): F10.232 - Alcohol dependence with withdrawal with perceptual disturbance
[2020-08-24 10:10] LABS: Amphetamines+Metham, Urine Neg (Neg); Barbiturates, Urine Neg (Neg); Benzodiazepine, Urine Neg (Neg); Cocaine, Urine Neg (Neg); MDMA (Ecstacy), Urine Neg (Neg); Methadone, Urine Neg (Neg); Opiate, Urine Neg (Neg); Phencyclidine, Urine Neg (Neg)
[2020-08-24 13:16] LABS: Pregnancy Test, Urine Negative (Negative)
--- NOTE | 2020-08-24 15:51 | Discharge Summary ---
Date of Service August 24, 2020 Admission HPI Per Admitting Provider 35 yo F Hx alcohol use disorder presented to ER this afternoon for complaints of "feeling unwell", abdominal pain, chest pressure. Has been seen several times over the last week for similar symptoms. She reports alcohol use history and admits to drinking about 5-6 16oz beers daily. Today had one (last drink around 2pm) which is around when she started feeling unwell. No complaints of shortness of breath. Has had alcohol withdrawal in the past, does not report history of seizures. She has also stopped drinking in the past with the help of oral medications. ER course today included CT Head (normal), labwork without elevation in LFTs or lipase, elevated EtOH level, K of 3.2. Vitals with tachycardia, elevated BP, nearly febrile at 37.7degrees C. Previous ER course over the last week includes CTA Chest negative for PE, did note 6mm pulmonary nodule in lingula; CTAP noted hepatic steatosis and hepatomegaly. On my interview patient endorses sensation of repeated humberto vu, asking me several times "did you tell me that already?". Does not endorse current chest pain or pressure, nausea. Admits to some RUQ mild abdominal pain. Also admits to urinary frequency. Overall reports desire to quit using alcohol, but is unsure what medium she will use to quit (inpatient, outpatient, AA, etc). Patient does not have a PCP. Principal Diagnosis Alcohol withdrawal Discharge Exam Constitutional WD/WN, vitals as above Eyes PERRL, conjunctivae normal, anicteric sclerae Respiratory normal respiratory effort, lungs clear to auscultation Auscultation: no crackles, no rales, no rhonchi and no wheezes Cardiovascular Rate/Rhythm: regular rate and regular rhythm Heart Sounds: no gallop, no murmur and no cardiac rub Vessels: normal peripheral pulses; no JVD Extremities: no edema Gastrointestinal (Abdomen) Inspection/Auscultation: normal bowel sounds; abdomen not distended Percussion/Palpation: abdomen soft; abdomen nontender and no guarding Musculoskeletal no cyanosis or clubbing, extremities motor strength 5/5 Skin no rashes, warm and dry Psychiatric Orientation: alert and cooperative Apperance: + disheveled Eye Contact: + poor eye contact Motor Behavior: + tremor Affect: + anxious affect Mood: + anxious mood Thought Content: + delusions Hallucinations: + auditory hallucinations and + visual hallucinations Insight: + poor insight Judgement: + poor judgement Discharge Data Allergies Allergy/AdvReac Type Severity Reaction Status Date / Time amoxicillin Allergy Intermediate Hives Verified 08/19/20 20:09 clavulanic acid Allergy Intermediate Hives Verified 08/19/20 20:09 [From Augmentin] Penicillins Allergy Intermediate Hives Verified 08/19/20 20:09 sulfamethoxazole Allergy Intermediate Hives Verified 08/19/20 20:09 [From Septra] trimethoprim [From Septra] Allergy Intermediate Hives Verified 08/19/20 20:09 famotidine [From Pepcid] Allergy Mild Red Skin Unverified 08/19/20 20:10 Splotches Consultations 08/23/20 19:00 ED Decision to Admit Stat Ordered Studies 08/23/20 17:20 CT head/brain wo con Stat Hospital Course (1) Alcohol withdrawal: 35 yo F Hx alcohol use disorder admitted for alcohol withdrawal with perceptual disturbances/hallucinations. Alcohol use disorder in withdrawal: - Presented to ER with sensation of impending doom, confusion, chest pressure/heart racing, nausea/vomiting - Endorses that she has been having hallucinations for days to weeks - Having both auditory and visual hallucinations that food and/or people were screaming at her - With persistent alcoholic hallucinosis/hallucinations despite medications while inpatient - History of alcohol use disorder, reports she drinks 5-6 16oz cans of beer daily. - Endorses one 16oz can today around 2pm before she started to feel unwell. EtOH level in ER today 18.8. - Last seen 08/19 for abdominal pain in ER, as well as on 08/17 and 07/21 for vague complaints; at these visits EtOH level was elevated as well. - Left AGAINST MEDICAL ADVICE Abdominal pain / Hepatic Steatosis: - Mild abdominal pain RUQ on exam. - CTAP performed 08/19 (ER visit for abdominal pain) without evidence of acute pathology. - Notable for hepatic steatosis and hepatomegaly, potentially the cause of her symptoms of mild RUQ pain. - LFTs, lipase normal this visit. - Does take aspirin 325 at home frequently - Salicylate level unremarkable Pulmonary nodule: - Noted on CTA Chest 08/17; likely needs outpatient follow up. Total Time Total Time Spent Total Time Spent (In Minutes): >30 Discharge Plan Discharge Items Patient Disposition: Against Medical Advice Reason For Visit: ALCOHOL WITHDRAWL Activity: Per Instructions section Non-emergency contact: Primary Care Provider Follow-up/Referrals: Earlene Fair DO [Resident] - PCP,GENE [Primary Care Provider] - Pending Studies at Discharge: No Stand-Alone Forms: My [facility] [employer] [facility], Smoking Cessation Medications and DC Order Prescriptions: Continued albuterol sulfate 90 mcg/actuation Hfa Aerosol Inhaler 2 puff INHALATION QID PRN (Reason: Shortness Of Breath Or Wheezing) RF: 0 budesonide-formoterol [Symbicort] 80-4.5 mcg/actuation Hfa Aerosol Inhaler 2 puff INHALATION BID RF: 0 docusate sodium [Colace] 100 mg capsule 100 mg PO BID PRN (Reason: Constipation) RF: 0 naproxen sodium [Aleve] 220 mg Tablet 220 mg PO BID PRN (Reason: Pain) RF: 0 aspirin 325 mg Tablet 325 mg PO Q4H PRN (Reason: Pain) RF: 0 Discharge Orders: Left Against Medical Advice (Routine); Ordered 08/24/20 Ordered By: Oren Barroso Admission Data Admit Date/Time: 08/23/20 20:35 Attending Provider: Kimmy Astudillo Admit Provider: Earlene Fair Primary Care Provider: PCP,GENE Other Providers: Agustín Mcneil Other Interventions: Discharge Summary Assessment (RN) Last Done: 08/24/20 15:10 Supervising Physician Co-Signing Physician Notes Resident Physician Supervision Note: I independently interviewed and examined the patient and verified the dow history and physical, reviewed labs and image studies and agree with resident Dr. Barroso findings and care plan. Resident Activity Tracking Resident Involvement: Resident Care Provided Care Provided: Adult Hospital Medicine
--- NOTE | 2020-08-25 00:14 | Electrocardiogram Report ---
Test Reason : Blood Pressure : / mmHG Vent. Rate : 106 BPM Atrial Rate : 106 BPM P-R Int : 126 ms QRS Dur : 090 ms QT Int : 360 ms P-R-T Axes : 077 065 053 degrees QTc Int : 478 ms Sinus tachycardia Nonspecific ST abnormality When compared with ECG of 17-AUG-2020 01:12, No significant change was found Confirmed by Taco Fernandez ([id number]) on 08/25/2020 12:13:58 AM Referred By: Confirmed By:Taco Fernandez
--- NOTE | 2020-08-29 10:20 | Billing Data ---
Date of Service August 29, 2020 Coding Level of Care Code 11083 Initial Inpt Care Lvl 3
== END 2020-08-24 14:52 | disposition left against medical advice (07) | DRG 894 ==
LOC: ED 15:26 → SUATTDRO 20:35 → 2N 20:35

== ENCOUNTER 2020-08-25 02:16 | Inpatient (IN) ==
[2020-08-25] MEDS ORDERED: HALOPERIDOL LACTATE 5 MG/ML 1 ML VIAL IM STA (02:28)
[2020-08-25] MEDS ORDERED: LORazepam 2 MG/ML VIAL (IM USE) IM STA ×2 (02:28→03:02)
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
[2020-08-25 03:43] LABS: Eosinophils # (auto) 0.06 K/uL (0-0.5); Eosinophils % (auto) 1.1 %; Hematocrit (blood only) 36.7 % (37-47); Hemoglobin 12.7 g/dL (12.0-16.0); Immature Granulocytes # (auto) 0.02 K/uL (0.00-0.02); Immature Granulocytes % (auto) 0.4 %; Lymphocytes # (auto) 2.54 K/uL (1.2-3.4); Lymphocytes % (auto) 46.6 %; Mean Corpuscular Hemoglobin 31.6 pg (25-34); Mean Corpuscular Hgb Conc 34.6 g/dL (32-36); Mean Corpuscular Volume 91.3 fL (80-100); Mean Platelet Volume 9.3 fL (7.4-10.4); Monocytes # (auto) 0.61 K/uL (0.11-0.59); Monocytes % (auto) 11.2 %; Neutrophils # (auto) 2.22 K/uL (1.4-6.5); Neutrophils % (auto) 40.7 %; Platelet Count 273 K/uL (130-400); RDW Coefficient of Variation 14.7 % (11.5-14.5); RDW Standard Deviation 48.2 fL (36.4-46.3); Red Blood Count 4.02 M/uL (4.2-5.4); White Blood Count 5.45 K/uL (4.8-10.8)
[2020-08-25 04:13] LABS: Pregnancy Test, Serum Negative (Negative)
[2020-08-25 04:17] LABS: Albumin Level 3.6 gm/dl (3.4-5.0); BUN Creatinine Ratio 14.5 (10-20); Calcium 7.9 mg/dl (8.5-10.1); Creatinine Clr Calc Pharmacy 133.9 ml/min; Est GFR (African American) 136.6 ml/min; Est GFR (Non-African American) 117.9 ml/min
[2020-08-25 04:34] LABS: Bilirubin,Total 0.3 mg/dl (0.2-1); Globulin 3.5 gm/dl (2.5-4.0); Total Protein 7.1 gm/dl (6.4-8.2)
--- NOTE | 2020-08-25 07:52 | Emergency Department Note ---
ED Visit Note ED note: Received this patient in signout from Joe Lomeli PA-C, at change of shift. Please refer to his dictation for the complete history, physical exam and ED course to this point. Briefly patient is a 35-year-old female brought to the emergency department for acute alcohol overdose. She was brought in by [facility] police, after an apparent DUI. At change of shift, the patient was being observed until she was no longer clinically intoxicated, and had cleared from the chemical sedation. Around 0830, the patient woke up, and came out of her room asking where the bathroom was. She was asking if she could be discharged home. I reassessed her around 0850, and told her that she could be discharged home if she got a ride. She was apparently texting with her mother, at some point reported that she had been able to arrange for transportation, and I prepared her for discharge at 0922. group home manager met with the patient, who declined acute drug or alcohol services. It was anticipated that the patient would be discharged at this point. She then told her primary nurse, that she wanted to be admitted for alcohol detox. I went and reassessed the patient, and she continued to make this statement. She wanted to come in, she "knew that she needed to get help." I ordered her a banana bag, and 10 mEq K rider x2. At this point, consultation was placed with the [facility], who had admitted the patient yesterday. Discussed the patient with Dr. New. She will be seen by him. Patient was placed in observation by Joe Lomeli PA-C and was necessary in order to observe the patient until she reached a clinically sober state and to preclude an unnecessary admission. Upon re-evaluation, observation revealed that the patient should be admitted. : Alcoholic intoxication Qualifiers: Complication of substance-induced condition: with unspecified complication Qualified Code(s): F10.929 - Alcohol use, unspecified with intoxication, unspecified
[2020-08-25] MEDS ORDERED: MULTI-VITAMIN INFUSION 10 ML, THIAMINE HCL 100 MG, FOLIC ACID 1 MG in SODIUM CHLORIDE 0... IV ONE (10:17)
--- NOTE | 2020-08-25 10:56 | History & Physical Report ---
Date of Service August 25, 2020 Assessment & Plan (1) Alcoholic intoxication: Acute intoxication with destructive behavior - Currently appropriately sedated with Haldol IM and Ativan IM - Banana bag administered in the EMD - Will place on AAWS with Ativan coverage while in house - If further coverage is needed for withdraw consider Clonidine and/or scheduled Librium as well - LR at 100ml/hour until tolerating adequate PO (2) Acute delirium: Intoxicated likely cause of delirium - Continue with AAWS - Haldol/Ativan if behavior becomes an issue again - Notify provider if restraints needed again (3) Acute hypokalemia: Received 10meq IV in EMD - Continue repletion- Kchlor packets q12 20meq- recheck in morning - Check PO4 in morning - other electrolyte normal limits (4) Tobacco use disorder: Nicotine patch 14mg - can increase if desired (5) Hepatic steatosis: Patient with history of Salicylate use PRN for pain - will check level - No acute PRISON/hepatitis (6) Pulmonary nodule seen on imaging study: Follow with lung nodule program History of Present Illness Primary Care Provider: NO PCP 35 YOF with past medical history of, incidental pulmonary nodule, current smoker, joint pain, chronic alcohol abuse. This is the patient's 2nd admission this week for ETOH abuse, intoxication. She was admitted on August 23 started on AAWS protocol with Clonidine 0.1mg as well and signed out AMA later on day. She was brought in by [place] [employer] police on yl in the cutter out for DUI and medical clearance for care home. During that time patient became combative and required combative behavioral restraints and received Haldol 10mg IM x1, and 2mg Ativan IM followed by another 2mg Ativan IM one hour later. Hospitalist service was asked to admit patient for monitoring. Patient on last admission reportedly said she would like to try to stop drinking. Patient will be admitted, follow mental/behavior status, electrolyte replacement and Ativan AAWS coverage. [facility] police indicated they will contact patient later this week apparently. If desired or needed, we can contact them prior to her discharge or if she leaves AMA. Allergies Allergy/AdvReac Type Severity Reaction Status Date / Time amoxicillin Allergy Intermediate Hives Verified 08/25/20 02:27 clavulanic acid Allergy Intermediate Hives Verified 08/25/20 02:27 [From Augmentin] Penicillins Allergy Intermediate Hives Verified 08/25/20 02:27 sulfamethoxazole Allergy Intermediate Hives Verified 08/25/20 02:27 [From Septra] trimethoprim [From Septra] Allergy Intermediate Hives Verified 08/25/20 02:27 famotidine [From Pepcid] Allergy Mild Red Skin Unverified 08/25/20 02:27 Splotches Home Medications Medication Instructions Recorded Confirmed Type albuterol sulfate 2 puff INHALATION QID PRN 07/21/20 08/25/20 History budesonide-formoterol [Symbicort] 2 puff INHALATION BID 07/21/20 08/25/20 History docusate sodium [Colace] 100 mg PO BID PRN 08/19/20 08/25/20 History naproxen sodium [Aleve] 220 mg PO BID PRN 08/19/20 08/25/20 History aspirin 325 mg PO Q4H PRN 08/23/20 08/25/20 History Past Med/Surg History Medical History Kidney stone Pulmonary nodule seen on imaging study Tobacco use disorder Surgical History No significant past surgical history Social History Smoking Status: Current every day smoker Tobacco Type: Cigarettes Cigarettes Per Day: 20; Second Hand Exposure: Yes; Hx Alcohol Use: Yes Alcohol type: hard liquor Hx Substance Use: No Preferred Language: French Communication Ability: Effective Miniature Model Maker Required: No Beliefs That Will Affect Care: None Current Living Situation: Parent and Family Current Living Situation Comment: mom and friend Other Information That Helps Us Care for You: No Feels Safe at Home: Yes Safety Concerns: Feels Safe At This Time Assistive Devices: Denture - Upper and Denture - Lower Review of Systems Review of Systems: REVIEW OF SYSTEMS: Not able to be completed secondary to sedation Physical Exam Physical Exam: PHYSICAL EXAM: - limited General: sedated and cooperative at this time, awakens to voice and states she is just tired Head: Normocephalic, atraumatic ENT: PERRL, EOMI, no pharyngeal exudate, mucous membranes moist Neuro: AAO x3 speech appropriate and slurred, strength intact bilaterally 5/5, sensation intact and equal all extremities and dermatomes, able to reposition self in bed and place herself in prone position to sleep, no focal deficits Chest: equal rise and fall of the chest, no accessory muscle use, no heaves or thrills, Clear to auscultation, on room air, Cardiac: Regular rate and rhythm, telemetry reviewed, skin warm dry, cap refill <3 seconds, peripheral pulses +2 no JVD, no murmur, no edema GI: Deferred as patient laying on her abdomen and did not want to roll back over : Spontaneously voiding, no pain, no CVA tenderness, Extremities: Normal inspection, no peripheral edema or erythema, calfs nontender to palpation Psych: sedated as per HPI Skin: no rash or erythema Results & Data Results & Data ([facility]) Vital Signs (Past 12 Hours) Vital Signs Temp Pulse Pulse Resp BP BP Pulse Ox 08/25/20 09:22 88 18 128/74 98 08/25/20 08:00 96 H 16 115/83 08/25/20 07:45 107 H 15 126/87 08/25/20 07:31 101 H 16 97 08/25/20 07:30 100 H 16 112/70 97 08/25/20 07:15 101 H 16 106/62 98 08/25/20 07:01 99 H 15 99 08/25/20 07:00 99 H 16 98 08/25/20 06:45 99 H 16 109/72 99 08/25/20 06:42 96 H 17 103/69 100 08/25/20 06:15 101 H 15 108/72 98 08/25/20 06:00 101 H 14 108/74 99 08/25/20 05:45 102 H 16 106/76 91 08/25/20 05:30 101 H 15 108/81 99 08/25/20 05:15 104 H 16 116/73 100 08/25/20 05:00 101 H 16 113/71 100 08/25/20 04:45 102 H 12 111/75 100 08/25/20 04:30 100 H 14 103/71 100 08/25/20 04:15 98 H 14 127/77 100 08/25/20 04:00 102 H 15 144/73 H 97 08/25/20 03:45 99 H 17 127/82 98 08/25/20 03:31 102 H 16 96 08/25/20 03:30 102 H 17 125/79 96 08/25/20 03:15 108 H 119/75 95 08/25/20 03:12 136/83 96 08/25/20 03:00 126 H 97 08/25/20 02:45 117 H 16 140/111 H 98 08/25/20 02:43 99 08/25/20 02:37 124 H 23 153/100 H 98 08/25/20 02:18 36.8 C 126 H 18 127/92 96 Laboratory Results Abnormal Labs 08/25/20 08/25/20 08/25/20 03:31 03:31 03:31 RBC 4.02 L Hct 36.7 L RDW Std Deviation 48.2 H RDW Coeff of Yulissa 14.7 H [place] # (Auto) 0.61 H Potassium 3.0 L Chloride 110 H Glucose 103 H Calcium 7.9 L Ethyl Alcohol mg/dL 234.0 H Medications Administered Discontinued Medications Haloperidol Lactate (Haloperidol Lactate 5 Mg/Ml 1 Ml Vial) 10 mg IM NOW STA Stop: 08/25/20 02:29 Last Admin: 08/25/20 02:39 Dose: 10 mg Documented by: [id number] Lorazepam (Lorazepam 2 Mg/Ml Vial (Im Use)) 2 mg IM NOW STA Stop: 08/25/20 02:29 Last Admin: 08/25/20 02:39 Dose: 2 mg Documented by: [id number] Lorazepam (Lorazepam 2 Mg/Ml Vial (Im Use)) 2 mg IM NOW STA Stop: 08/25/20 03:03 Last Admin: 08/25/20 03:12 Dose: 2 mg Documented by: [id number] ECG Additional Comments: P-R Int : 126 ms QRS Dur : 090 ms QT Int : 360 ms P-R-T Axes : 077 065 053 degrees QTc Int : 478 ms Sinus tachycardia Nonspecific ST abnormality When compared with ECG of 17-AUG-2020 01:12, No significant change was found Code Status & VTE Plan Code Status CODE: FULL VTE: SCD's, Lovenox Supervising Physician Co-Signing Physician Notes Discussed with nurse sql server consultant or, agree with his note above. Patient is here after being detained by law enforcement for DUI. She was very agitated and required sedation with Ativan and Haldol. However, when she became more alert and sober she asked for treatment for acute alcohol detoxification. She both apparently very sedate I was visited by the nurse practitioner was able to give too much history. For now we will continue to monitor with a 48 hours, treat for alcohol withdrawal if necessary. Once patient is cleared medically, she can be discharged on 05 28. PG Care Time/CCT Total # of Minutes Spent Total Time Spent with Patient: Total time spent is greater than 50% in coordination of care (as documented) at patient's floor/unit and/or counseling patient: Coding Level of Care Code 65468 Initial Inpt Care Lvl 3 Diagnoses Alcoholic intoxication F10.929 Complication of substance-induced condition: with unspecified complication Acute delirium R41.0 Acute hypokalemia E87.6 Tobacco use disorder F17.200 Hepatic steatosis K76.0 Pulmonary nodule seen on imaging study R91.1 (1) Alcoholic intoxication Complication of substance-induced condition: with unspecified complication Qualified Code(s): F10.929 - Alcohol use, unspecified with intoxication, unspecified
[2020-08-25] MEDS: POTASSIUM CHLORIDE / WTR 10 MEQ/100 ML PLCT IV SCH ×2 (11:36→12:44)
[2020-08-25] MEDS ORDERED: ALBUTEROL HFA 8 GM INHALER INH PRN (14:09)
[2020-08-25] MEDS ORDERED: ACETAMINOPHEN 325 MG TAB PO PRN (14:09)
[2020-08-25] MEDS ORDERED: ATIVAN IV ALCOHOL WITHDRAWL IV PRN (14:09)
[2020-08-25] MEDS ORDERED: LORazepam 1 MG/2 ML VIAL IV PRN (14:09)
[2020-08-25] MEDS ORDERED: ONDANSETRON INJ 2 MG/ML 2 ML VIAL IV PRN (14:09)
[2020-08-25] MEDS: LACTATED RINGER'S 1,000 ML IV SCH (14:48)
[2020-08-25] MEDS: NICOTINE 14 MG/24 HR PATCH TD SCH (15:12)
[2020-08-25] MEDS: PANTOprazole 40 MG in SYRINGE 0 ML IV SCH (15:13)
[2020-08-25] MEDS: POTASSIUM CHLORIDE PWD 20 MEQ PACK PO SCH ×2 (15:14→20:06)
[2020-08-25] MEDS: LORazepam 1 MG/2 ML VIAL IV PRN (15:38)
[2020-08-25] MEDS: ALBUTEROL HFA 8 GM INHALER INH PRN (15:55)
[2020-08-25] MEDS ORDERED: ENOXAPARIN INJ 40 MG/0.4 ML SYR SQ SCH (16:00)
[2020-08-25 16:23] LABS: Amphetamines+Metham, Urine Neg (Neg); Barbiturates, Urine Neg (Neg); Benzodiazepine, Urine Neg (Neg); Cocaine, Urine Neg (Neg); MDMA (Ecstacy), Urine Neg (Neg); Methadone, Urine Neg (Neg); Opiate, Urine Neg (Neg); Phencyclidine, Urine Neg (Neg)
[2020-08-25 16:33] LABS: Albumin Level 3.2 gm/dl (3.4-5.0); BUN Creatinine Ratio 13.3 (10-20); Bilirubin,Total 0.5 mg/dl (0.2-1); Calcium 7.2 mg/dl (8.5-10.1); Creatinine Clr Calc Pharmacy 109.4 ml/min; Est GFR (African American) 115.8 ml/min; Est GFR (Non-African American) 99.9 ml/min; Globulin 3.1 gm/dl (2.5-4.0); Potassium 3.9 mmol/L (3.5-5.1); Total Protein 6.4 gm/dl (6.4-8.2)
[2020-08-25] MEDS: LORazepam 2 MG/4 ML VIAL IV PRN ×2 (18:41→21:12)
[2020-08-25] MEDS: FLUTICASONE/VILANTEROL 100/25MCG 14 PUFFS/INHALER INH SCH (20:06)
[2020-08-26] MEDS: LORazepam 2 MG/4 ML VIAL IV PRN (00:19)
[2020-08-26] MEDS: LACTATED RINGER'S 1,000 ML IV SCH ×2 (00:19→12:14)
[2020-08-26 06:36] LABS: Basophils # (auto) 0.02 K/uL (0-0.2); Basophils % (auto) 0.4 %; Eosinophils # (auto) 0.28 K/uL (0-0.5); Eosinophils % (auto) 4.9 %; Hematocrit (blood only) 35.7 % (37-47); Hemoglobin 12.1 g/dL (12.0-16.0); Lymphocytes # (auto) 2.69 K/uL (1.2-3.4); Lymphocytes % (auto) 47.2 %; Mean Corpuscular Hemoglobin 31.1 pg (25-34); Mean Corpuscular Hgb Conc 33.9 g/dL (32-36); Mean Corpuscular Volume 91.8 fL (80-100); Mean Platelet Volume 9.3 fL (7.4-10.4); Monocytes # (auto) 0.63 K/uL (0.11-0.59); Monocytes % (auto) 11.1 %; Neutrophils # (auto) 2.08 K/uL (1.4-6.5); Neutrophils % (auto) 36.4 %; Platelet Count 233 K/uL (130-400); RDW Coefficient of Variation 14.6 % (11.5-14.5); RDW Standard Deviation 47.6 fL (36.4-46.3); Red Blood Count 3.89 M/uL (4.2-5.4)
[2020-08-26 07:13] LABS: BUN Creatinine Ratio 14.1 (10-20); Calcium 7.8 mg/dl (8.5-10.1); Creatinine Clr Calc Pharmacy 149.7 ml/min; Est GFR (African American) 141.2 ml/min; Est GFR (Non-African American) 121.8 ml/min; Magnesium 1.5 mg/dl (1.8-2.4); Phosphorus 3.1 mg/dl (2.5-4.9); Potassium 3.1 mmol/L (3.5-5.1)
[2020-08-26] MEDS ORDERED: POTASSIUM CHLORIDE CRTAB 20 MEQ TABCR PO STA (07:45)
[2020-08-26] MEDS: PANTOprazole 40 MG in SYRINGE 0 ML IV SCH (08:26)
[2020-08-26] MEDS: MAGNESIUM SULFATE / D5W 1 GM/100 ML BAG IV SCH ×4 (08:26→18:44)
[2020-08-26] MEDS: NICOTINE 14 MG/24 HR PATCH TD SCH (08:36)
[2020-08-26] MEDS ORDERED: THIAMINE HCL 200 MG in SODIUM CHLORIDE 0.9% 50 ML IV SCH (09:00)
[2020-08-26] MEDS ORDERED: FOLIC ACID 1 MG in SYRINGE 9.8 ML IV SCH (09:00)
[2020-08-26] MEDS: LORazepam 1 MG/2 ML VIAL IV PRN ×2 (09:40→13:42)
[2020-08-26] MEDS: POTASSIUM ACETATE/NSS 10 MEQ/105 ML BAG IV SCH ×2 (12:14→13:42)
[2020-08-26 12:30] LABS: Creatinine Clr Calc Pharmacy 164.1 ml/min; Est GFR (African American) 145.5 ml/min; Est GFR (Non-African American) 125.5 ml/min; Potassium 3.9 mmol/L (3.5-5.1)
[2020-08-26] MEDS ORDERED: LORazepam 0.5 MG/1 ML VIAL IV STA (15:56)
[2020-08-26] MEDS ORDERED: chlordiazePOXIDE HCl 25 MG CAP PO ONE (16:54)
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
--- NOTE | 2020-08-26 19:10 | Billing Data ---
Date of Service August 26, 2020 Coding Level of Care Code 48542 Subseq Hosp Care Lvl 3
[2020-08-26] MEDS: LORazepam 3 MG/6 ML VIAL IV PRN (19:47)
[2020-08-26] MEDS: FLUTICASONE/VILANTEROL 100/25MCG 14 PUFFS/INHALER INH SCH (19:53)
[2020-08-26] MEDS ORDERED: MELATONIN 3 MG TAB PO PRN (20:55)
[2020-08-26] MEDS ORDERED: hydrOXYzine HCl 25 MG TAB PO STA (20:55)
[2020-08-26] MEDS ORDERED: diazePAM 5 MG TABLET PO ONE (21:04)
[2020-08-26] MEDS ORDERED: diazePAM 5 MG TABLET ONE (21:08)
[2020-08-27] MEDS: LORazepam 3 MG/6 ML VIAL IV PRN ×2 (02:29→05:38)
[2020-08-27] MEDS ORDERED: chlordiazePOXIDE HCl 25 MG CAP PO ONE ×2 (07:57→13:00)
--- NOTE | 2020-08-27 08:00 | Hospitalist Progress Note ---
Date of Service August 27, 2020 Assessment & Plan (1) Alcohol withdrawal: 35yo F with hx incidental pulmonary nodule, tobacco use, alcohol use disorder, and hepatic steatosis who presented with alcohol intoxication by the police following a DUI. Notable recent admission for alcohol intoxication/ withdrawal and left AMA. Alcohol withdrawal management: - last drink evening of 08/24 - AAWS protocol with prn Ativan - received 25 mg librium yesterday evening and then had worsening ovn sx requiring 10 mg diazepam for management. - librium increased to 50 mg TID, transferred to PCU for closer monitoring - Hallucinosis resolving, appears to be moving toward DT despite benzodiazepine management. - will continue close monitoring, consider phenobarbital 130 mg IV vs. ICU admission with sedation and intubation for management with precedex if scoring >20 AWSS Alcohol use disorder: - PO folic acid and thiamine - Discussed outpatient counseling Anxiety/ Depression/ Grief: - Began Lexapro 10mg qAM - consider prn hydroxyzine once withdrawal symptoms resolve - Discussed importance of outpatient counseling - Sleep sx: can consider small dose of trazodone/zyprexa QHS to help with nighttime agitation and sleeplessness Tobacco use disorder -Nicotine patch 14mg Hepatic steatosis: - No acute MCC/hepatitis Pulmonary nodule seen on imaging study: - Follow with lung nodule program Diet:Regular DVT prophylaxis:SCDs Dispo: PCU Code: full code Admission and Anticipated Discharge Date Admission Date: August 25, 2020 Supervising Physician Co-Signing Physician Notes I personally examined the patient and verified all dow points of history and exam, discussed case, and agree with decision making with Dr Jackson. Still very anxious. Off-and-on has been wanting to go home. Each time has been able to be talked down. Vitals noted, in general she is awake and alert, sitting in bed appearing anxio us but at the time I see her no distress, eating [place] fries off of her plate. HEENT normocephalic atraumatic mucous membranes moist. Breathing unlabored no accessory muscle use good effort. Skin shows no rashes no pallor or icterus. Neuro shows no focal deficits. She is very anxious, somewhat tearful, a little bit less pressured speech than when I saw her yesterday. Alcohol withdrawal/alcoholic hallucinosiscontinue aggressive managementsymptom triggered, but given that she has required so much symptom triggered therapy, we have converted some of it into a baseline of Librium. She is also required a few doses of phenobarbital to augment the benzodiazepines. Fortunately she does not yet appear to require ICU level care. Severe anxietycertainly the anxiety and alcohol withdrawal are playing off of each other, sometimes it is a little bit hard to discern how much of her symptoms are withdrawal and how much are purely anxietybut of course with the hallucinations and the overall situation, have to assume that it could easily be both. Alcohol abusecontinue thiamine and folate. Yesterday we switched to p.o. because IV medications were part of her frustration that she noticed making her anxiety worse, but we will definitely need to follow to make sure she is taking it in daily, if not revert to IV or IM if necessary. Otherwise as above. Subjective OVN events: increasing AWSS scores overnight, required 10 mg diazepam x 1 for sedation/prolonged control of symptoms. Feeling unwell this morning. Says she mostly "sees" things when she's asleep or has her eyes closed. Denies any auditory hallucinations or tactile hallucinations at this time. Visibly anxious, concerned about being able to go home. Concerned about problems sleeping/nightmares when going home. wants something to help her anxiety and sleep. Review of Systems Review of Systems: All systems reviewed & are unremarkable except as noted in Subjective Physical Exam Physical Exam: const: visibly anxious, diaphoretic, weepy card: tachycardic, regular rhythm neuro: tremorous Results & Data Results & Data ([facility]) Vital Signs (Past 12 Hours) Vital Signs Temp Pulse Resp BP Pulse Ox 08/27/20 07:15 36.8 C 101 H 16 122/85 97 08/26/20 23:22 37.0 C 94 H 18 107/69 98 Resident Activity Tracking Resident Involvement: Resident Care Provided Care Provided: Adult Hospital Medicine (1) Alcohol withdrawal Complication of substance-induced condition: with perceptual disturbance Qualified Code(s): F10.232 - Alcohol dependence with withdrawal with perceptual disturbance
[2020-08-27] MEDS: ESCITALOPRAM OXALATE 10 MG TAB PO SCH (08:10)
[2020-08-27] MEDS: NICOTINE 14 MG/24 HR PATCH TD SCH (08:12)
[2020-08-27] MEDS: LORazepam 2 MG/4 ML VIAL IV PRN ×3 (08:12→14:03)
[2020-08-27] MEDS ORDERED: FOLIC ACID 1 MG TAB PO SCH (09:00)
[2020-08-27] MEDS ORDERED: THIAMINE HCL 100 MG TAB PO SCH (09:00)
[2020-08-27 10:35] LABS: Basophils # (auto) 0.01 K/uL (0-0.2); Basophils % (auto) 0.1 %; Eosinophils # (auto) 0.29 K/uL (0-0.5); Eosinophils % (auto) 4.1 %; Hematocrit (blood only) 38.5 % (37-47); Hemoglobin 12.9 g/dL (12.0-16.0); Immature Granulocytes # (auto) 0.01 K/uL (0.00-0.02); Immature Granulocytes % (auto) 0.1 %; Lymphocytes # (auto) 1.96 K/uL (1.2-3.4); Lymphocytes % (auto) 27.9 %; Mean Corpuscular Hemoglobin 31.9 pg (25-34); Mean Corpuscular Hgb Conc 33.5 g/dL (32-36); Mean Corpuscular Volume 95.1 fL (80-100); Mean Platelet Volume 9.4 fL (7.4-10.4); Monocytes # (auto) 0.86 K/uL (0.11-0.59); Monocytes % (auto) 12.2 %; Neutrophils % (auto) 55.6 %; Platelet Count 254 K/uL (130-400); RDW Coefficient of Variation 14.9 % (11.5-14.5); RDW Standard Deviation 50.3 fL (36.4-46.3); Red Blood Count 4.05 M/uL (4.2-5.4); White Blood Count 7.03 K/uL (4.8-10.8)
[2020-08-27 10:51] LABS: BUN Creatinine Ratio 15.4 (10-20); Calcium 8.7 mg/dl (8.5-10.1); Creatinine Clr Calc Pharmacy 133.3 ml/min; Est GFR (African American) 135.9 ml/min; Est GFR (Non-African American) 117.2 ml/min; Potassium 4.2 mmol/L (3.5-5.1)
[2020-08-27] MEDS ORDERED: ARIPiprazole 10 MG TAB PO STA (11:07)
[2020-08-27] MEDS ORDERED: PHENobarbitaL sodium 130 MG in SYRINGE 0 ML IV ONE ×2 (11:10→14:30)
[2020-08-27] MEDS: LORazepam 1 MG/2 ML VIAL IV PRN ×4 (13:07→16:55)
[2020-08-27] MEDS: ALBUTEROL HFA 8 GM INHALER INH PRN (13:49)
--- NOTE | 2020-08-27 16:00 | Billing Data ---
Date of Service August 27, 2020 Coding Level of Care Code 58477 Subseq Hosp Care Lvl 3
[2020-08-27] MEDS ORDERED: STAT IV Infusion **Titration per Protocol STA (17:13)
[2020-08-27] MEDS ORDERED: DEXMEDETOMIDINE HCL 200 MCG in SODIUM CHLORIDE 0.9% 48 ML IV SCH (17:30)
--- NOTE | 2020-08-27 18:46 | Critical Care Consultation ---
Date of Consultation August 27, 2020 Assessment & Plan (1) Acute delirium: Chest x-ray 08/23/2020 personally reviewed: Portable film, good respiratory effort, bilateral costophrenic and cardiophrenic angles are clean, no clear lung infiltrate appreciated. --Agitated delirium Likely from delirium tremens Patient is a very heavy drinker Ethanol level on average on previous admission has been around 250-300 Patient has been without alcohol for approximately 48 hours She has gone a total of 100 mg of Librium, 16 mg of Ativan and phenobarbital 130 mg still wanting to elope from the hospital Start the patient on Precedex Continue with Librium 75 mg 3 times daily If the patient is not able to take p.o. medication we will keep the patient on 5 mg of Ativan every 4 hours and then gradually titrated off Keep the patient RASS -1 If there is any clinical deterioration in the patient's mental status or severe agitation we will plan to intubate --History of anxiety Continue with Lexapro --Questionable history of asthma Continue with Breo for the time being PFT as an outpatient --Active smoker Advised to quit --Left upper lobe pulmonary nodule Appreciated with CT chest on 08/17/2020 This is most likely infectious given the [place] opacities nearby Recommend repeat CT chest in 3 months Plan: Continue with CIWA protocol Continue with Librium as well as Ativan and Precedex Continue with thiamine and folic acid I have personally spent 61 minutes of critical care time in the direct management of this patient. This is a life/limb threatening event. This includes time spent evaluating patient, direct bedside care, chart review, placing orders, interpretation of diagnostic studies, discussion with consultants, patient, and family members, as well as other required patient management activities. This time is exclusive of all separately billable procedures, and teaching time and separate from and in addition to any other critical care service time. Please note the above document was generated using voice recognition software. It may contain grammatical, syntax or spelling errors. (2) Tobacco use disorder: (3) Violent behavior with restraint use: (4) Delirium tremens: History of Present Illness Attending Physician: Medhat Morgan DO History of Present Illness 35-year-old female past medical history of chronic alcohol abuse, active smoker was admitted to hospital because of DUI and alcohol intoxication Initially she was combative and received Haldol followed by [facility]. Patient has been in the hospital since then. She has been requiring Ativan IV pushes and currently on chlordiazepoxide for possible withdrawal as it has been approximately 48 hours since she had her last drink Patient has tried to elope multiple times while on the floor today itself. It has been deemed by the primary team that patient is not safe to be discharged and she does not have the capacity right now ICU were consulted because of increasing need of benzodiazepines. Signout was given briefly by Dr. Jackson At the time of examination patient was on Precedex 0.2 She was calm and composed. She was awake alert oriented x3 No jitteriness. She was emotional as she was asking when she could go home. Denies any chest pain, no shortness of breath, no nausea, no vomiting. No headache, no blurry vision Patient denies any auditory, visual or tactile hallucinations Social history: Heavy daily drinker, active smoker Allergies Allergy/AdvReac Type Severity Reaction Status Date / Time amoxicillin Allergy Intermediate Hives Verified 08/25/20 02:27 clavulanic acid Allergy Intermediate Hives Verified 08/25/20 02:27 [From Augmentin] Penicillins Allergy Intermediate Hives Verified 08/25/20 02:27 sulfamethoxazole Allergy Intermediate Hives Verified 08/25/20 02:27 [From Septra] trimethoprim [From Septra] Allergy Intermediate Hives Verified 08/25/20 02:27 famotidine [From Pepcid] Allergy Mild Red Skin Unverified 08/25/20 02:27 Splotches Home Medications Medication Instructions Recorded Confirmed Type albuterol sulfate 2 puff INHALATION QID PRN 07/21/20 08/25/20 History budesonide-formoterol [Symbicort] 2 puff INHALATION BID 07/21/20 08/25/20 History docusate sodium [Colace] 100 mg PO BID PRN 08/19/20 08/25/20 History naproxen sodium [Aleve] 220 mg PO BID PRN 08/19/20 08/25/20 History aspirin 325 mg PO Q4H PRN 08/23/20 08/25/20 History Patient History Medical History Kidney stone Pulmonary nodule seen on imaging study Tobacco use disorder Surgical History No significant past surgical history Social History Smoking Status: Current every day smoker Tobacco Type: Cigarettes Cigarettes Per Day: 20; Second Hand Exposure: Yes; Hx Alcohol Use: Yes Alcohol type: hard liquor Hx Substance Use: No Preferred Language: Honduran Communication Ability: Effective Production Editor Required: No Beliefs That Will Affect Care: None Current Living Situation: Parent and Family Current Living Situation Comment: mom and friend Other Information That Helps Us Care for You: No Feels Safe at Home: Yes Safety Concerns: Feels Safe At This Time Assistive Devices: None Review of Systems Review of Systems: All systems reviewed & are unremarkable except as noted in HPI & below Physical Exam Physical Exam: Constitutional: No acute distress HEENT: EOMI, PERRLA Respiratory system: Good air entry bilaterally, no wheeze, no rhonchi, no crackles CVS: S1-S2 positive, no murmurs or gallops, tachycardia Abdomen: Soft, nontender, nondistended, positive bowel sounds x4 Extremities: +2 pulses bilaterally radialis/ dorsalis pedis, no cyanosis, no edema Neuro: Awake alert oriented x3 Psych: Anxious mood and affect G/U: No [place] Skin: no rashes, warm and dry Lymphatic: no cervical or axillary lymphadenopathy Results & Data Results & Data ([facility]) Vital Signs (Past 12 Hours) Vital Signs Temp Pulse Pulse Resp BP Pulse Ox 08/27/20 16:05 36.9 C 117 H 20 139/95 97 08/27/20 15:00 107 H 08/27/20 13:52 103 H 16 97 08/27/20 10:27 36.6 C 97 H 20 108/70 96 08/27/20 07:15 36.8 C 101 H 16 122/85 97 08/27/20 10:26 08/27/20 10:26 Coding Level of Care Code Critical Care 1st 30-74 mins Diagnoses Acute delirium R41.0 Tobacco use disorder F17.200 Violent behavior with restraint use R45.6 Delirium tremens F10.231 Time Spent (min) 61
[2020-08-27] MEDS: THIAMINE HCL 200 MG in SODIUM CHLORIDE 0.9% 50 ML IV SCH (19:36)
[2020-08-27] MEDS: FOLIC ACID 1 MG in SYRINGE 9.8 ML IV SCH (19:36)
[2020-08-27] MEDS: LORazepam 5 MG/10 ML VIAL IV PRN ×2 (19:58→23:15)
[2020-08-27] MEDS ORDERED: chlordiazePOXIDE HCl 25 MG CAP PO SCH (21:00)
[2020-08-27] MEDS: FLUTICASONE/VILANTEROL 100/25MCG 14 PUFFS/INHALER INH SCH ×2 (22:04→22:43)
[2020-08-27] MEDS: chlordiazePOXIDE HCl 25 MG CAP PO SCH (22:29)
[2020-08-27] MEDS ORDERED: HALOPERIDOL LACTATE 5 MG/ML 1 ML VIAL ONE (23:11)
[2020-08-27] MEDS: DEXMEDETOMIDINE HCL 400 MCG in 0.9 % SODIUM CHLORIDE 96 ML IV SCH (23:46)
[2020-08-28] MEDS: NORMOSOL-R 1,000 ML IV SCH ×2 (05:03→17:56)
[2020-08-28 05:47] LABS: Basophils # (auto) 0.03 K/uL (0-0.2); Basophils % (auto) 0.5 %; Eosinophils # (auto) 0.24 K/uL (0-0.5); Eosinophils % (auto) 3.9 %; Hematocrit (blood only) 39.7 % (37-47); Hemoglobin 13.2 g/dL (12.0-16.0); Immature Granulocytes # (auto) 0.02 K/uL (0.00-0.02); Immature Granulocytes % (auto) 0.3 %; Lymphocytes # (auto) 2.29 K/uL (1.2-3.4); Lymphocytes % (auto) 37.3 %; Mean Corpuscular Hemoglobin 31.7 pg (25-34); Mean Corpuscular Hgb Conc 33.2 g/dL (32-36); Mean Corpuscular Volume 95.2 fL (80-100); Mean Platelet Volume 9.4 fL (7.4-10.4); Monocytes # (auto) 0.71 K/uL (0.11-0.59); Monocytes % (auto) 11.6 %; Neutrophils # (auto) 2.85 K/uL (1.4-6.5); Neutrophils % (auto) 46.4 %; Platelet Count 260 K/uL (130-400); RDW Coefficient of Variation 15.1 % (11.5-14.5); RDW Standard Deviation 51.5 fL (36.4-46.3); Red Blood Count 4.17 M/uL (4.2-5.4); White Blood Count 6.14 K/uL (4.8-10.8)
[2020-08-28 06:08] LABS: BUN Creatinine Ratio 23.2 (10-20); Calcium 8.7 mg/dl (8.5-10.1); Creatinine Clr Calc Pharmacy 125.1 ml/min; Est GFR (African American) 133.9 ml/min; Est GFR (Non-African American) 115.5 ml/min
[2020-08-28 06:37] LABS: Phosphorus 4.1 mg/dl (2.5-4.9)
[2020-08-28] MEDS: DEXMEDETOMIDINE HCL 400 MCG in 0.9 % SODIUM CHLORIDE 96 ML IV SCH ×2 (08:33→23:52)
--- NOTE | 2020-08-28 09:26 | Hospitalist Progress Note ---
Date of Service August 28, 2020 Assessment & Plan (1) Alcohol withdrawal: 35yo F with hx incidental pulmonary nodule, tobacco use, alcohol use disorder, and hepatic steatosis who presented with alcohol intoxication by the police following a DUI. Notable recent admission for alcohol intoxication/ withdrawal and left AMA. Alcohol withdrawal management: - last drink evening of 07/25 - ICU admission for management with precedex drip, ativan drip, Alcohol use disorder: - IV folic acid and thiamine Anxiety/ Depression/ Grief: - Lexapro 10mg qAM - consider prn hydroxyzine once withdrawal symptoms resolve - Discussed importance of outpatient counseling - Sleep sx: can consider small dose of trazodone/zyprexa QHS to help with nighttime agitation and sleeplessness Tobacco use disorder -Nicotine patch 14mg Hepatic steatosis: - No acute MCFP/hepatitis Pulmonary nodule seen on imaging study: - Follow with lung nodule program Diet:Regular DVT prophylaxis:SCDs Dispo: ICU Code: full code Admission and Anticipated Discharge Date Admission Date: August 25, 2020 Supervising Physician Co-Signing Physician Notes I personally examined the patient and verified all dow points of history and exam, discussed case, and agree with decision making with Dr Jackson. resting, on precedex. Vitals noted, resting no distress. HEENT normocephalic atraumatic mucous members moist. Breathing unlabored no accessory muscle use good effort. Skin shows no rashes no pallor or icterus. Alcohol withdrawal/alcoholic hallucinosiscontinue aggressive managementdeteriorated to ICU on Precedex. Continue supportive care, continue to treat withdrawal. Severe anxietycertainly the anxiety and alcohol withdrawal are playing off of each other, has significant need for baseline treatment of anxiety and depression. Alcohol abusecontinue thiamine and folate. Appears to be driven by anxiety/depression/grieving. Otherwise as above. Subjective heavily sedated. unable to obtain HPI. Review of Systems Review of Systems: Unobtainable due to cognitive status Physical Exam Physical Exam: Constitutional: No acute distress, heavily sedated Respiratory system: Good air entry bilaterally, no wheeze, no rhonchi, no crackles CVS: S1-S2 positive, no murmurs or gallops Abdomen: Soft, nontender, nondistended, positive bowel sounds x4 Skin: no rashes, warm and dry Lymphatic: no cervical or axillary lymphadenopathy Results & Data Results & Data ([facility]) Vital Signs (Past 12 Hours) Vital Signs Temp Pulse Pulse Resp BP Pulse Ox 08/28/20 09:01 73 18 102/62 96 08/28/20 08:28 18 08/28/20 08:00 37 C 72 73 18 100/62 96 08/28/20 07:00 74 16 96/59 L 98 08/28/20 06:11 72 20 102/70 96 08/28/20 05:12 74 21 102/70 96 08/28/20 04:12 36.9 C 76 20 100/72 96 08/28/20 03:12 74 20 104/59 L 95 08/28/20 02:26 76 16 92/60 L 97 08/28/20 01:12 76 19 106/76 96 08/28/20 00:32 36.8 C 77 21 110/71 95 08/27/20 23:19 89 08/27/20 22:14 81 16 105/77 96 Resident Activity Tracking Resident Involvement: Resident Care Provided Care Provided: Adult Hospital Medicine (1) Alcohol withdrawal Complication of substance-induced condition: with perceptual disturbance Qualified Code(s): F10.232 - Alcohol dependence with withdrawal with perceptual disturbance
[2020-08-28] MEDS: NICOTINE 14 MG/24 HR PATCH TD SCH (09:57)
[2020-08-28] MEDS: ENOXAPARIN INJ 40 MG/0.4 ML SYR SQ SCH (11:28)
[2020-08-28] MEDS: chlordiazePOXIDE HCl 25 MG CAP PO SCH ×3 (11:42→19:51)
[2020-08-28] MEDS: LORazepam 5 MG/10 ML VIAL IV PRN ×3 (11:50→20:00)
[2020-08-28] MEDS: ESCITALOPRAM OXALATE 10 MG TAB PO SCH (11:56)
--- NOTE | 2020-08-28 13:58 | Critical Care Progress Note ---
Date of Service August 28, 2020 Assessment & Plan (1) Acute delirium: Chest x-ray 08/23/2020 personally reviewed: Portable film, good respiratory effort, bilateral costophrenic and cardiophrenic angles are clean, no clear lung infiltrate appreciated. --Agitated delirium Likely from delirium tremens Patient is a very heavy drinker Ethanol level on average on previous admission has been around 250-300 Patient has been without alcohol for approximately 48 hours She has gone a total of 100 mg of Librium, 16 mg of Ativan and phenobarbital 130 mg still wanting to elope from the hospital Start the patient on Precedex Continue with Librium 75 mg 3 times daily If the patient is not able to take p.o. medication we will keep the patient on 5 mg of Ativan every 4 hours and then gradually titrated off Keep the patient RASS -1 If there is any clinical deterioration in the patient's mental status or severe agitation we will plan to intubate --History of anxiety Continue with Lexapro --Questionable history of asthma Continue with Breo for the time being PFT as an outpatient --Active smoker Advised to quit --Left upper lobe pulmonary nodule Appreciated with CT chest on 08/17/2020 This is most likely infectious given the [place] opacities nearby Recommend repeat CT chest in 3 months --Prophylaxis VTE: Lovenox GI: None Lines: Peripheral Diet: Plan: In/out: -3, urine output 600 mL Continue with Precedex Keep the Precedex the lower side and will give Ativan IV standing if she is not able to take p.o. Librium Continue with thiamine and folic acid I have personally spent 36 minutes of critical care time in the direct management of this patient. This is a life/limb threatening event. This includes time spent evaluating patient, direct bedside care, chart review, placing orders, interpretation of diagnostic studies, discussion with consultants, patient, and family members, as well as other required patient management activities. This time is exclusive of all separately billable procedures, and teaching time and separate from and in addition to any other critical care service time. Please note the above document was generated using voice recognition software. It may contain grammatical, syntax or spelling errors. (2) Tobacco use disorder: (3) Violent behavior with restraint use: (4) Delirium tremens: Admission and Anticipated Discharge Date Admission Date: August 25, 2020 Subjective Patient seen and examined at bedside. No acute distress. Patient was on Precedex 0.3 at the time of examination. She had also gotten Ativan 5 mg around 5:30 AM. Patient had one episode overnight where she got really agitated pulled out her IV lines and tried to elope. Patient has been taking Librium p.o. Review of Systems Review of Systems: All systems reviewed & are unremarkable except as noted in Subjective Physical Exam Physical Exam: Constitutional: No acute distress HEENT: EOMI, PERRLA Respiratory system: Good air entry bilaterally, no wheeze, no rhonchi, no crackles CVS: S1-S2 positive, no murmurs or gallops Abdomen: Soft, nontender, nondistended, positive bowel sounds x4 Extremities: +2 pulses bilaterally radialis/ dorsalis pedis, no cyanosis, no edema Neuro: RASS -1 Psych: Unable to assess G/U: No [place] Skin: no rashes, warm and dry Lymphatic: no cervical or axillary lymphadenopathy Results & Data Results & Data ([facility]) Vital Signs (Past 12 Hours) Vital Signs Temp Pulse Pulse Resp BP Pulse Ox 08/28/20 13:00 81 16 93/63 L 96 08/28/20 12:00 37 C 80 20 103/62 97 08/28/20 11:00 70 16 97/60 L 97 08/28/20 10:00 69 16 100/64 98 08/28/20 09:01 73 18 102/62 96 08/28/20 08:28 18 08/28/20 08:00 37 C 72 73 18 100/62 96 08/28/20 07:00 74 16 96/59 L 98 08/28/20 06:11 72 20 102/70 96 08/28/20 05:12 74 21 102/70 96 08/28/20 04:12 36.9 C 76 20 100/72 96 08/28/20 03:12 74 20 104/59 L 95 08/28/20 02:26 76 16 92/60 L 97 08/28/20 05:27 08/28/20 05:27 Coding Level of Care Code Critical Care 1st 30-74 mins Diagnoses Acute delirium R41.0 Tobacco use disorder F17.200 Violent behavior with restraint use R45.6 Delirium tremens F10.231 Time Spent (min) 36
[2020-08-28] MEDS ORDERED: LORazepam 5 MG/10 ML VIAL IV ONE (16:30)
--- NOTE | 2020-08-28 17:43 | Billing Data ---
Date of Service August 28, 2020 Coding Level of Care Code 20321 Subseq Hosp Care Lvl 1
[2020-08-28] MEDS: THIAMINE HCL 200 MG in SODIUM CHLORIDE 0.9% 50 ML IV SCH (19:36)
[2020-08-28] MEDS: FOLIC ACID 1 MG in SYRINGE 9.8 ML IV SCH (19:36)
[2020-08-28] MEDS: FLUTICASONE/VILANTEROL 100/25MCG 14 PUFFS/INHALER INH SCH (19:52)
[2020-08-29] MEDS: LORazepam 5 MG/10 ML VIAL IV PRN ×6 (04:32→22:16)
[2020-08-29 05:02] LABS: Basophils # (auto) 0.03 K/uL (0-0.2); Basophils % (auto) 0.4 %; Eosinophils # (auto) 0.25 K/uL (0-0.5); Eosinophils % (auto) 3.6 %; Hematocrit (blood only) 36.4 % (37-47); Hemoglobin 12.1 g/dL (12.0-16.0); Immature Granulocytes # (auto) 0.02 K/uL (0.00-0.02); Immature Granulocytes % (auto) 0.3 %; Lymphocytes # (auto) 2.19 K/uL (1.2-3.4); Lymphocytes % (auto) 31.3 %; Mean Corpuscular Hemoglobin 32.1 pg (25-34); Mean Corpuscular Hgb Conc 33.2 g/dL (32-36); Mean Corpuscular Volume 96.6 fL (80-100); Mean Platelet Volume 9.8 fL (7.4-10.4); Monocytes # (auto) 0.76 K/uL (0.11-0.59); Monocytes % (auto) 10.9 %; Neutrophils # (auto) 3.75 K/uL (1.4-6.5); Neutrophils % (auto) 53.5 %; Platelet Count 248 K/uL (130-400); RDW Coefficient of Variation 15.1 % (11.5-14.5); RDW Standard Deviation 52.3 fL (36.4-46.3); Red Blood Count 3.77 M/uL (4.2-5.4)
[2020-08-29 05:35] LABS: BUN Creatinine Ratio 24.1 (10-20); Calcium 8.5 mg/dl (8.5-10.1); Est GFR (African American) 134.5 ml/min; Est GFR (Non-African American) 116.1 ml/min; Magnesium 1.9 mg/dl (1.8-2.4); Potassium 3.8 mmol/L (3.5-5.1)
[2020-08-29 05:36] LABS: Phosphorus 3.7 mg/dl (2.5-4.9)
[2020-08-29] MEDS: NORMOSOL-R 1,000 ML IV SCH (06:02)
--- NOTE | 2020-08-29 08:34 | Hospitalist Progress Note ---
Date of Service August 29, 2020 Assessment & Plan (1) Alcohol withdrawal: 35yo F with hx incidental pulmonary nodule, tobacco use, alcohol use disorder, and hepatic steatosis who presented with alcohol intoxication by the police following a DUI. Notable recent admission for alcohol intoxication/ withdrawal and left AMA. Alcohol withdrawal management: - last drink evening of 07/25 - ICU admission for management with precedex drip, ativan drip, - nursing able to find out from patient yesterday that she drinks a fifth of everclear vodka daily, and has been for 5 years, which is 95% alcohol.given this, will likely require long titration of alcohol withdrawal and prevention of DTs Alcohol use disorder: - PO folic acid and thiamine - Discussed outpatient counseling Anxiety/ Depression/ Grief: - Began Lexapro 10mg qAM - consider prn hydroxyzine once withdrawal symptoms resolve Tobacco use disorder -Nicotine patch 14mg Hepatic steatosis: - No acute AKOSUA/hepatitis Pulmonary nodule seen on imaging study: - Follow with lung nodule program Diet:Regular DVT prophylaxis:SCDs Dispo: ICU Code: full code Admission and Anticipated Discharge Date Admission Date: August 25, 2020 Supervising Physician Co-Signing Physician Notes I personally examined the patient and verified all dow points of history and exam, discussed case, and agree with decision making with Dr Jackson. resting, on precedex and ativan, nursing notes less overall agitation, still hallucinosis (will think a doll is pulling her curtain shut). Vitals noted, resting no distress. HEENT normocephalic atraumatic mucous members moist. Breathing unlabored no accessory muscle use good effort. Skin shows no rashes no pallor or icterus. Alcohol withdrawal/alcoholic hallucinosiscontinue aggressive managementprecedex and ativan Severe anxietycertainly the anxiety and alcohol withdrawal are playing off of each other, has significant need for baseline treatment of anxiety and depression. Alcohol abusecontinue thiamine and folate. Appears to be driven by anxiety/depression/grieving. Otherwise as above. Subjective continues to be lethargic and sedated on precedex. overnight events significant for repeated anxious episodes requiring uptitration of precedex Review of Systems Review of Systems: Unobtainable due to cognitive status Physical Exam Physical Exam: Constitutional: No acute distress, heavily sedated Respiratory system: Good air entry bilaterally, no wheeze, no rhonchi, no crackles CVS: RRR, no murmurs or gallops Abdomen: Soft, nontender, nondistended, Skin: no rashes, warm and dry Lymphatic: no cervical or axillary lymphadenopathy Results & Data Results & Data ([facility]) Vital Signs (Past 12 Hours) Vital Signs Temp Pulse Resp BP Pulse Ox 08/29/20 06:32 78 13 106/70 98 08/29/20 05:29 75 18 102/60 98 08/29/20 04:29 36.8 C 73 24 115/71 98 08/29/20 03:29 79 19 104/73 97 08/29/20 02:29 78 22 109/74 98 08/29/20 01:28 82 15 111/73 98 08/29/20 00:29 36.6 C 85 16 102/65 98 08/28/20 23:29 82 18 105/53 L 97 08/28/20 22:29 82 22 94/48 L 96 08/28/20 21:16 85 19 93/54 L 97 Resident Activity Tracking Resident Involvement: Resident Care Provided Care Provided: Adult Hospital Medicine (1) Alcohol withdrawal Complication of substance-induced condition: with perceptual disturbance Qualified Code(s): F10.232 - Alcohol dependence with withdrawal with perceptual disturbance
[2020-08-29] MEDS: chlordiazePOXIDE HCl 25 MG CAP PO SCH ×3 (08:46→20:45)
[2020-08-29] MEDS: ENOXAPARIN INJ 40 MG/0.4 ML SYR SQ SCH (08:46)
[2020-08-29] MEDS: NICOTINE 14 MG/24 HR PATCH TD SCH ×2 (08:47→19:48)
[2020-08-29] MEDS: ESCITALOPRAM OXALATE 10 MG TAB PO SCH (08:47)
[2020-08-29] MEDS ORDERED: PROMETHAZINE HCL 12.5 MG in SODIUM CHLORIDE 0.9% 50 ML IV ONE (10:30)
--- NOTE | 2020-08-29 13:07 | Billing Data ---
Date of Service August 29, 2020 Coding Level of Care Code 20033 Subseq Hosp Care Lvl 1
[2020-08-29] MEDS: DEXMEDETOMIDINE HCL 400 MCG in 0.9 % SODIUM CHLORIDE 96 ML IV SCH ×2 (13:52→19:51)
--- NOTE | 2020-08-29 14:00 | Critical Care Progress Note ---
Date of Service August 29, 2020 Assessment & Plan (1) Acute delirium: Chest x-ray 08/23/2020 personally reviewed: Portable film, good respiratory effort, bilateral costophrenic and cardiophrenic angles are clean, no clear lung infiltrate appreciated. --Agitated delirium Likely from delirium tremens Patient is a very heavy drinker Ethanol level on average on previous admission has been around 250-300 Patient has been without alcohol for approximately 48 hours She has gone a total of 100 mg of Librium, 16 mg of Ativan and phenobarbital 130 mg still wanting to elope from the hospital Start the patient on Precedex Continue with Librium 75 mg 3 times daily If the patient is not able to take p.o. medication we will keep the patient on 5 mg of Ativan every 4 hours and then gradually titrated off Keep the patient RASS -1 If there is any clinical deterioration in the patient's mental status or severe agitation we will plan to intubate --History of anxiety Continue with Lexapro --Questionable history of asthma Continue with Breo for the time being PFT as an outpatient --Active smoker Advised to quit --Left upper lobe pulmonary nodule Appreciated with CT chest on 08/17/2020 This is most likely infectious given the [place] opacities nearby Recommend repeat CT chest in 3 months --Prophylaxis VTE: Lovenox GI: None Lines: Peripheral Diet: Plan: In/out: +3.3L, urine output 1100 Patient still having active hallucinations. She has episodes when she is violent but does calm down with Ativan pushes. Does have good appetite. I will try to go down on Librium to 50 mg every 8 starting tomorrow. Continue with Ativan 5 mg as needed for the time being every 4 hours I have personally spent 35 minutes of critical care time in the direct management of this patient. This is a life/limb threatening event. This includes time spent evaluating patient, direct bedside care, chart review, placing orders, interpretation of diagnostic studies, discussion with consultants, patient, and family members, as well as other required patient management activities. This time is exclusive of all separately billable procedures, and teaching time and separate from and in addition to any other critical care service time. Please note the above document was generated using voice recognition software. It may contain grammatical, syntax or spelling errors. (2) Tobacco use disorder: (3) Violent behavior with restraint use: (4) Delirium tremens: Admission and Anticipated Discharge Date Admission Date: August 25, 2020 Subjective Patient seen and examined at bedside. No acute distress. Overnight patient got over 15 mg of Ativan on top of the Librium which she is getting. At time of examination patient was on Precedex 0.4. She was RASS -1. On waking up she denied any chest pain. She did complain of hallucinations overnight visual. Denied any hallucinations at that moment. Denies any shortness of breath, no chest pain, no headache, no nausea, no vomiting. Review of Systems Review of Systems: All systems reviewed & are unremarkable except as noted in Subjective Physical Exam Physical Exam: Constitutional: No acute distress HEENT: EOMI, PERRLA Respiratory system: Good air entry bilaterally, no wheeze, no rhonchi, no crackles CVS: S1-S2 positive, no murmurs or gallops Abdomen: Soft, nontender, nondistended, positive bowel sounds x4 Extremities: +2 pulses bilaterally radialis/ dorsalis pedis, no cyanosis, no edema Neuro: RASS -1 Psych: Normal mood and affect G/U: No [place] Skin: no rashes, warm and dry Lymphatic: no cervical or axillary lymphadenopathy Results & Data Results & Data ([facility]) Vital Signs (Past 12 Hours) Vital Signs Temp Pulse Resp BP Pulse Ox 08/29/20 12:10 82 17 93/62 L 97 08/29/20 10:30 88 19 102/56 L 08/29/20 09:29 94 H 24 89/69 L 98 08/29/20 08:28 84 22 108/67 08/29/20 07:29 74 17 96/61 L 96 08/29/20 06:32 78 13 106/70 98 08/29/20 05:29 75 18 102/60 98 08/29/20 04:29 36.8 C 73 24 115/71 98 08/29/20 03:29 79 19 104/73 97 08/29/20 02:29 78 22 109/74 98 08/29/20 04:36 08/29/20 04:36 Coding Level of Care Code Critical Care 1st 30-74 mins Diagnoses Acute delirium R41.0 Tobacco use disorder F17.200 Violent behavior with restraint use R45.6 Delirium tremens F10.231
[2020-08-29] MEDS: THIAMINE HCL 200 MG in SODIUM CHLORIDE 0.9% 50 ML IV SCH (19:30)
[2020-08-29] MEDS: FOLIC ACID 1 MG in SYRINGE 9.8 ML IV SCH (19:31)
[2020-08-29] MEDS: FLUTICASONE/VILANTEROL 100/25MCG 14 PUFFS/INHALER INH SCH (20:45)
[2020-08-30] MEDS: DEXMEDETOMIDINE HCL 400 MCG in 0.9 % SODIUM CHLORIDE 96 ML IV SCH ×3 (03:10→19:43)
[2020-08-30 04:16] LABS: Basophils # (auto) 0.03 K/uL (0-0.2); Basophils % (auto) 0.4 %; Eosinophils # (auto) 0.25 K/uL (0-0.5); Eosinophils % (auto) 3.6 %; Hemoglobin 12.8 g/dL (12.0-16.0); Immature Granulocytes # (auto) 0.01 K/uL (0.00-0.02); Immature Granulocytes % (auto) 0.1 %; Lymphocytes # (auto) 2.36 K/uL (1.2-3.4); Lymphocytes % (auto) 33.7 %; Mean Corpuscular Hemoglobin 31.8 pg (25-34); Mean Corpuscular Hgb Conc 32.8 g/dL (32-36); Mean Platelet Volume 9.7 fL (7.4-10.4); Monocytes # (auto) 0.86 K/uL (0.11-0.59); Monocytes % (auto) 12.3 %; Neutrophils # (auto) 3.49 K/uL (1.4-6.5); Neutrophils % (auto) 49.9 %; Platelet Count 245 K/uL (130-400); RDW Coefficient of Variation 15.1 % (11.5-14.5); RDW Standard Deviation 53.6 fL (36.4-46.3); Red Blood Count 4.02 M/uL (4.2-5.4)
[2020-08-30 04:41] LABS: BUN Creatinine Ratio 28.2 (10-20); Calcium 8.6 mg/dl (8.5-10.1); Creatinine Clr Calc Pharmacy 145.2 ml/min; Est GFR (African American) 139.6 ml/min; Est GFR (Non-African American) 120.4 ml/min; Magnesium 1.9 mg/dl (1.8-2.4); Phosphorus 4.1 mg/dl (2.5-4.9); Potassium 4.1 mmol/L (3.5-5.1)
[2020-08-30] MEDS: LORazepam 5 MG/10 ML VIAL IV PRN ×5 (06:05→22:08)
--- NOTE | 2020-08-30 08:27 | Hospitalist Progress Note ---
Date of Service August 30, 2020 Assessment & Plan (1) Alcohol withdrawal: 35yo F with hx incidental pulmonary nodule, tobacco use, alcohol use disorder, and hepatic steatosis who presented with alcohol intoxication by the police following a DUI. Notable recent admission for alcohol intoxication/ withdrawal and left AMA. Alcohol withdrawal management: - last drink evening of 07/25 - ICU admission for management with precedex drip, Ativan Q4h, librium PO - nursing able to find out from patient that she drinks a fifth of everclear vodka daily, and has been for 5 years, which is 95% alcohol.given this, will likely require long titration of alcohol withdrawal and prevention of DTs - may be approaching downgrade from ICU in next few days depending on response to being titrated off precedex drip Alcohol use disorder: - PO folic acid and thiamine - Discussed outpatient counseling Anxiety/ Depression/ Grief: - Began Lexapro 10mg qAM - consider prn hydroxyzine once withdrawal symptoms resolve Tobacco use disorder -Nicotine patch 14mg Hepatic steatosis: - No acute SENIOR CARE/hepatitis Pulmonary nodule seen on imaging study: - Follow with lung nodule program Diet:Regular DVT prophylaxis:SCDs Dispo: ICU Code: full code Admission and Anticipated Discharge Date Admission Date: August 25, 2020 Supervising Physician Co-Signing Physician Notes I personally saw and examined the patient. I verified all dow points and agree with resident physician, Dr Jackson with the following exceptions and/or a dditions: No further hallucinations but remains agitation. Patient remains on Precedex drip and still requiring Ativan 5mg Q4H. Agree with continued ICU care. Subjective Doing well this morning was up and walking around her room. States she has not seen or heard any hallucinations since late last night. She was on the phone with her significant other and expressed interest in leaving the hospital today. Related that we would have to see how she does today going into tomorrow to make sure that we did not take any "steps back", she was okay with this. Review of Systems Review of Systems: All systems reviewed & are unremarkable except as noted in HPI & below Physical Exam Physical Exam: Constitutional:shaky, standing while on the phone and holding on to IV pole. Eyes: EOMI, pupils equal and reactive bilaterally, no scleral icterus Cardiac: RRR, no murmurs, gallops or rubs. Normal S1, S2 Pulm: CTA BL, no wheezes, rhonchi, crackles or rubs, moving air well throughout both lungs Results & Data Results & Data ([facility]) Vital Signs (Past 12 Hours) Vital Signs Temp Pulse Resp BP Pulse Ox 08/30/20 06:11 73 18 111/68 97 08/30/20 05:11 71 14 102/69 98 08/30/20 04:29 36.9 C 08/30/20 04:11 73 15 96/70 L 98 08/30/20 03:11 74 16 99/64 L 98 08/30/20 02:11 78 15 113/66 97 08/30/20 01:11 77 14 100/75 99 08/30/20 00:11 79 16 91/67 L 96 08/29/20 23:11 81 16 114/65 96 08/29/20 23:06 82 08/29/20 22:25 37.0 C 08/29/20 22:11 81 14 110/76 97 08/29/20 21:11 80 15 113/78 98 08/29/20 20:45 82 17 110/65 98 Laboratory Results WBC 7.00 K/uL (4.8-10.8) 08/30/20 04:05 RBC 4.02 M/uL (4.2-5.4) L 08/30/20 04:05 Hgb 12.8 g/dL (12.0-16.0) 08/30/20 04:05 Hct 39.0 % (37-47) 08/30/20 04:05 MCV 97.0 fL (80-100) 08/30/20 04:05 MCH 31.8 pg (25-34) 08/30/20 04:05 MCHC 32.8 g/dL (32-36) 08/30/20 04:05 RDW Std Deviation 53.6 fL (36.4-46.3) H 08/30/20 04:05 RDW Coeff of Yulissa 15.1 % (11.5-14.5) H 08/30/20 04:05 Plt Count 245 K/uL (130-400) 08/30/20 04:05 MPV 9.7 fL (7.4-10.4) 08/30/20 04:05 Immature Gran % (Auto) 0.1 % 08/30/20 04:05 Neut % (Auto) 49.9 % 08/30/20 04:05 Lymph % (Auto) 33.7 % 08/30/20 04:05 [place] % (Auto) 12.3 % 08/30/20 04:05 Eos % (Auto) 3.6 % 08/30/20 04:05 Baso % (Auto) 0.4 % 08/30/20 04:05 Neut # (Auto) 3.49 K/uL (1.4-6.5) 08/30/20 04:05 Lymph # (Auto) 2.36 K/uL (1.2-3.4) 08/30/20 04:05 [place] # (Auto) 0.86 K/uL (0.11-0.59) H 08/30/20 04:05 Eos # (Auto) 0.25 K/uL (0-0.5) 08/30/20 04:05 Baso # (Auto) 0.03 K/uL (0-0.2) 08/30/20 04:05 Immature Gran # (Auto) 0.01 K/uL (0.00-0.02) 08/30/20 04:05 Sodium 137 mmol/L (136-145) 08/30/20 04:05 Potassium 4.1 mmol/L (3.5-5.1) 08/30/20 04:05 Chloride 105 mmol/L (98-107) 08/30/20 04:05 Carbon Dioxide 28 mmol/L (21-32) 08/30/20 04:05 Anion Gap 4.0 (3-11) 08/30/20 04:05 BUN 17 mg/dl (7-18) 08/30/20 04:05 Creatinine 0.59 mg/dl (0.6-1.2) L 08/30/20 04:05 Est Cr Clr Drug Dosing 145.2 ml/min 08/30/20 04:05 Est GFR ( Amer) 139.6 ml/min 08/30/20 04:05 Est GFR (Non-Af Amer) 120.4 ml/min 08/30/20 04:05 BUN/Creatinine Ratio 28.2 (10-20) H 08/30/20 04:05 Glucose 96 mg/dl (70-99) 08/30/20 04:05 POC Glucose 91 mg/dl (70-99) 08/28/20 00:27 Calcium 8.6 mg/dl (8.5-10.1) 08/30/20 04:05 Phosphorus 4.1 mg/dl (2.5-4.9) 08/30/20 04:05 Magnesium 1.9 mg/dl (1.8-2.4) 08/30/20 04:05 Total Bilirubin 0.5 mg/dl (0.2-1) 08/25/20 15:45 AST 33 U/L (15-37) 08/25/20 15:45 ALT 27 U/L (12-78) 08/25/20 15:45 Alkaline Phosphatase 84 U/L (45-117) 08/25/20 15:45 Total Protein 6.4 gm/dl (6.4-8.2) 08/25/20 15:45 Albumin 3.2 gm/dl (3.4-5.0) L 08/25/20 15:45 Globulin 3.1 gm/dl (2.5-4.0) 08/25/20 15:45 Albumin/Globulin Ratio 1.0 (0.9-2) 08/25/20 15:45 HCG, Qual Negative (Negative) 08/25/20 03:31 Salicylates < 1.7 mg/dl (2.8-20) L 08/25/20 11:25 Urine Opiates Screen Neg (Neg) 08/25/20 Unknown Ur Methadone, Qual Neg (Neg) 08/25/20 Unknown Urine Barbiturates Neg (Neg) 08/25/20 Unknown Ur Phencyclidine (PCP) Neg (Neg) 08/25/20 Unknown U Amphetamin/Meth Scrn Neg (Neg) 08/25/20 Unknown MDMA (Ecstasy) Screen Neg (Neg) 08/25/20 Unknown U Benzodiazepines Scrn Neg (Neg) 08/25/20 Unknown Ur Cocaine Metabolite Neg (Neg) 08/25/20 Unknown U Marijuana (THC) Screen Neg (Neg) 08/25/20 Unknown Ethyl Alcohol mg/dL < 3.0 mg/dl (0-3) 08/27/20 20:57 COVID-19 Eval Order Covid19 at [facility] 08/25/20 11:15 SARS-CoV-2 (PCR) NEGATIVE (Negative) 08/25/20 11:15 Resident Activity Tracking Resident Involvement: Resident Care Provided Care Provided: Adult Hospital Medicine (1) Alcohol withdrawal Complication of substance-induced condition: with perceptual disturbance Qualified Code(s): F10.232 - Alcohol dependence with withdrawal with perceptual disturbance
[2020-08-30] MEDS ORDERED: ACETAMINOPHEN 325 MG TAB PO PRN (08:36)
[2020-08-30] MEDS: ENOXAPARIN INJ 40 MG/0.4 ML SYR SQ SCH (09:09)
[2020-08-30] MEDS: chlordiazePOXIDE HCl 25 MG CAP PO SCH ×3 (09:09→20:58)
[2020-08-30] MEDS: ESCITALOPRAM OXALATE 20 MG TAB PO SCH (09:26)
[2020-08-30] MEDS: NICOTINE 14 MG/24 HR PATCH TD SCH (09:26)
--- NOTE | 2020-08-30 12:15 | Critical Care Progress Note ---
Date of Service August 30, 2020 Assessment & Plan (1) Acute delirium: Chest x-ray 08/23/2020 personally reviewed: Portable film, good respiratory effort, bilateral costophrenic and cardiophrenic angles are clean, no clear lung infiltrate appreciated. --Agitated delirium Likely from delirium tremens Patient is a very heavy drinker Ethanol level on average on previous admission has been around 250-300 Patient has been without alcohol for approximately 48 hours, repeat ethanol level was negative She has gone a total of 100 mg of Librium, 16 mg of Ativan and phenobarbital 130 mg still wanting to elope from the hospital On Precedex Continue with Librium 75 mg 3 times daily If the patient is not able to take p.o. medication we will keep the patient on 5 mg of Ativan every 4 hours and then gradually titrated off Keep the patient RASS -1 If there is any clinical deterioration in the patient's mental status or severe agitation we will plan to intubate --History of anxiety Continue with Lexapro --Questionable history of asthma Continue with Breo for the time being PFT as an outpatient --Active smoker Advised to quit --Left upper lobe pulmonary nodule Appreciated with CT chest on 08/17/2020 This is most likely infectious given the [place] opacities nearby Recommend repeat CT chest in 3 months --Prophylaxis VTE: Lovenox GI: None Lines: Peripheral Diet: Plan: In/out: Positive for 1 2, urine output 1150 Patient was on Precedex 0.2 at the time of examination She still on Librium 75 mg 3 times daily. I will go down to 50 mg 3 times daily Continue with as needed Ativan 5 mg every 4 hours. I will increase the Lexapro to 20 mg daily. Goal is to gradually wean benzodiazepines and take the Precedex off. I have personally spent 35 minutes of critical care time in the direct management of this patient. This is a life/limb threatening event. This includes time spent evaluating patient, direct bedside care, chart review, placing orders, interpretation of diagnostic studies, discussion with consultants, patient, and family members, as well as other required patient management activities. This time is exclusive of all separately billable procedures, and teaching time and separate from and in addition to any other critical care service time. Please note the above document was generated using voice recognition software. It may contain grammatical, syntax or spelling errors. (2) Tobacco use disorder: (3) Violent behavior with restraint use: (4) Delirium tremens: Admission and Anticipated Discharge Date Admission Date: August 25, 2020 Subjective Patient seen and examined at bedside. No acute distress. No adverse events overnight. She got total 10 mg of Ativan overnight. She had just finished her breakfast. She was calm and composed. Was asking to go home. Had a good night sleep. Denies any hallucination or any bad dreams. She got emotional when she asked to go home and I said we still have to make sure that she is doing well. She was able to be counseled Review of Systems Review of Systems: All systems reviewed & are unremarkable except as noted in Subjective Physical Exam Physical Exam: Constitutional: No acute distress HEENT: EOMI, PERRLA Respiratory system: Good air entry bilaterally, no wheeze, no rhonchi, no crackles CVS: S1-S2 positive, no murmurs or gallops Abdomen: Soft, nontender, nondistended, positive bowel sounds x4 Extremities: +2 pulses bilaterally radialis/ dorsalis pedis, no cyanosis, no edema, mild bruising on the lateral aspect of the left thigh. Neuro: Awake alert oriented x3 Psych: Normal mood and affect G/U: No [place] Skin: no rashes, warm and dry Lymphatic: no cervical or axillary lymphadenopathy Results & Data Results & Data ([facility]) Vital Signs (Past 12 Hours) Vital Signs Temp Pulse Resp BP Pulse Ox 08/30/20 11:11 87 22 103/81 96 08/30/20 10:11 92 H 19 106/73 97 08/30/20 09:11 101 H 19 136/80 98 08/30/20 08:11 37.0 C 95 H 17 122/77 97 08/30/20 08:00 86 08/30/20 07:15 77 17 99 08/30/20 06:11 73 18 111/68 97 08/30/20 05:11 71 14 102/69 98 08/30/20 04:29 36.9 C 08/30/20 04:11 73 15 96/70 L 98 08/30/20 03:11 74 16 99/64 L 98 08/30/20 02:11 78 15 113/66 97 08/30/20 01:11 77 14 100/75 99 08/30/20 04:05 08/30/20 04:05 Coding Level of Care Code Critical Care 1st 30-74 mins Diagnoses Acute delirium R41.0 Tobacco use disorder F17.200 Violent behavior with restraint use R45.6 Delirium tremens F10.231 Time Spent (min) 35
[2020-08-30] MEDS: THIAMINE HCL 200 MG in SODIUM CHLORIDE 0.9% 50 ML IV SCH (19:22)
[2020-08-30] MEDS: FOLIC ACID 1 MG in SYRINGE 9.8 ML IV SCH (19:22)
[2020-08-30] MEDS: FLUTICASONE/VILANTEROL 100/25MCG 14 PUFFS/INHALER INH SCH (20:58)
[2020-08-31] MEDS: LORazepam 5 MG/10 ML VIAL IV PRN ×3 (02:10→10:14)
[2020-08-31 04:30] LABS: Basophils # (auto) 0.03 K/uL (0-0.2); Basophils % (auto) 0.4 %; Eosinophils # (auto) 0.21 K/uL (0-0.5); Eosinophils % (auto) 2.9 %; Hemoglobin 11.8 g/dL (12.0-16.0); Immature Granulocytes # (auto) 0.02 K/uL (0.00-0.02); Immature Granulocytes % (auto) 0.3 %; Lymphocytes % (auto) 30.9 %; Mean Corpuscular Hemoglobin 31.3 pg (25-34); Mean Corpuscular Hgb Conc 32.8 g/dL (32-36); Mean Corpuscular Volume 95.5 fL (80-100); Mean Platelet Volume 9.7 fL (7.4-10.4); Monocytes # (auto) 0.93 K/uL (0.11-0.59); Monocytes % (auto) 13.1 %; Neutrophils # (auto) 3.73 K/uL (1.4-6.5); Neutrophils % (auto) 52.4 %; Platelet Count 279 K/uL (130-400); RDW Coefficient of Variation 15.3 % (11.5-14.5); RDW Standard Deviation 53.2 fL (36.4-46.3); Red Blood Count 3.77 M/uL (4.2-5.4); White Blood Count 7.12 K/uL (4.8-10.8)
[2020-08-31 05:07] LABS: BUN Creatinine Ratio 26.7 (10-20); Calcium 8.2 mg/dl (8.5-10.1); Creatinine Clr Calc Pharmacy 127.1 ml/min; Est GFR (African American) 133.2 ml/min; Est GFR (Non-African American) 114.9 ml/min; Magnesium 1.7 mg/dl (1.8-2.4); Phosphorus 4.2 mg/dl (2.5-4.9); Potassium 3.5 mmol/L (3.5-5.1)
[2020-08-31] MEDS ORDERED: MAGNESIUM SULFATE / D5W 1 GM/100 ML BAG IV ONE (05:34)
--- NOTE | 2020-08-31 08:02 | Hospitalist Progress Note ---
Date of Service August 31, 2020 Assessment & Plan (1) Alcohol withdrawal: 35yo F with hx incidental pulmonary nodule, tobacco use, alcohol use disorder, and hepatic steatosis who presented with alcohol intoxication by the police following a DUI. Notable recent admission for alcohol intoxication/ withdrawal and left AMA. Alcohol withdrawal management: - last drink evening of 07/25 - ICU admission for management with precedex drip, Ativan Q4h, librium PO - nursing able to find out from patient that she drinks a fifth of everclear vodka daily, and has been for 5 years, which is 95% alcohol.given this, will likely require long titration of alcohol withdrawal and prevention of DTs - may be approaching downgrade from ICU in next few days depending on response to being titrated off precedex drip Alcohol use disorder: - PO folic acid and thiamine - Discussed outpatient counseling Anxiety/ Depression/ Grief: - Began Lexapro 10mg qAM - consider prn hydroxyzine once withdrawal symptoms resolve Tobacco use disorder -Nicotine patch 14mg Hepatic steatosis: - No acute AKOSUA/hepatitis Pulmonary nodule seen on imaging study: - Follow with lung nodule program Diet:Regular DVT prophylaxis:SCDs Dispo: ICU Code: full code Admission and Anticipated Discharge Date Admission Date: August 25, 2020 Results & Data Results & Data ([facility]) Vital Signs (Past 12 Hours) Vital Signs Temp Pulse Resp BP Pulse Ox 08/31/20 06:07 88 16 117/87 95 08/31/20 05:07 94 H 22 133/73 95 08/31/20 04:07 86 18 103/58 L 95 08/31/20 03:22 36.9 C 84 14 114/69 93 08/31/20 02:07 88 15 100/64 96 08/31/20 01:07 93 H 15 111/70 96 08/31/20 00:07 92 H 20 111/73 94 08/30/20 23:15 37.2 C 08/30/20 23:08 94 H 19 95 08/30/20 22:12 92 H 15 110/64 96 08/30/20 21:07 91 H 17 96/42 L 96 (1) Alcohol withdrawal Complication of substance-induced condition: with perceptual disturbance Qualified Code(s): F10.232 - Alcohol dependence with withdrawal with perceptual disturbance
[2020-08-31] MEDS ORDERED: CYPROHEPTADINE HCL 4 MG TAB PO STA (08:24)
[2020-08-31] MEDS: ENOXAPARIN INJ 40 MG/0.4 ML SYR SQ SCH (08:30)
[2020-08-31] MEDS: chlordiazePOXIDE HCl 25 MG CAP PO SCH ×2 (08:30→13:21)
[2020-08-31] MEDS: NICOTINE 14 MG/24 HR PATCH TD SCH (08:31)
[2020-08-31] MEDS: ESCITALOPRAM OXALATE 20 MG TAB PO SCH (08:31)
[2020-08-31] MEDS ORDERED: POTASSIUM CHLORIDE CRTAB 20 MEQ TABCR PO STA (08:36)
[2020-08-31] MEDS: MAGNESIUM SULFATE / D5W 1 GM/100 ML BAG IV SCH ×2 (09:48→11:59)
--- NOTE | 2020-08-31 11:05 | Electrocardiogram Report ---
Test Reason : Blood Pressure : / mmHG Vent. Rate : 084 BPM Atrial Rate : 084 BPM P-R Int : 152 ms QRS Dur : 086 ms QT Int : 378 ms P-R-T Axes : 071 052 031 degrees QTc Int : 446 ms Normal sinus rhythm Normal ECG When compared with ECG of 23-AUG-2020 15:44, No significant change was found Confirmed by Nazario Chang ([id number] on 08/31/2020 11:05:01 AM Referred By: REFERRED SELF Confirmed By:Sergio Chang
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
[2020-08-31] MEDS ORDERED: LORazepam 1 MG TAB PO PRN ×2 (12:34→12:36)
--- NOTE | 2020-08-31 13:07 | Critical Care Progress Note ---
Date of Service August 31, 2020 Assessment & Plan (1) Acute delirium: Chest x-ray 08/23/2020 personally reviewed: Portable film, good respiratory effort, bilateral costophrenic and cardiophrenic angles are clean, no clear lung infiltrate appreciated. --S/p agitated delirium Likely from delirium tremens Patient is a very heavy drinker Ethanol level on average on previous admission has been around 250-300 Patient has been without alcohol for approximately 48 hours, repeat ethanol level was negative She has gone a total of 100 mg of Librium, 16 mg of Ativan and phenobarbital 130 mg still wanting to elope from the hospital Continue with Librium 50 mg 3 times daily If the patient is not able to take p.o. medication we will keep the patient on 5 mg of Ativan every 4 hours and then gradually titrated off --History of anxiety Continue with Lexapro --Questionable history of asthma Continue with Breo for the time being PFT as an outpatient --Active smoker Advised to quit --Left upper lobe pulmonary nodule Appreciated with CT chest on 08/17/2020 This is most likely infectious given the [place] opacities nearby Recommend repeat CT chest in 3 months --Prophylaxis VTE: Lovenox GI: None Lines: Peripheral Diet: Plan: In/out: -1L, 1577 urine output I will DC IV Ativan DC Precedex I do not think patient is an active DTs now. She does have anxiety and I think it is playing a significant role Patient does have capacity, psych eval also noted. I think patient is clinically stable to be downgraded to medical floor. Please note the above document was generated using voice recognition software. It may contain grammatical, syntax or spelling errors.Any formal questions or concerns about the content, text or information contained within the body of this dictation should be directly addressed to the provider for clarification. (2) Tobacco use disorder: (3) Violent behavior with restraint use: (4) Delirium tremens: Admission and Anticipated Discharge Date Admission Date: August 25, 2020 Subjective Patient seen and examined at bedside. No acute distress, no adverse events overnight. Patient has been off Precedex since 1 AM. She did get 2 doses of Ativan IV overnight as she asked for it for anxiety. Denies any chest pain, no shortness of breath. Was again emotional after talking to her mother. No auditory, visual or tactile hallucinations. Denied any nightmares Review of Systems Review of Systems: All systems reviewed & are unremarkable except as noted in Subjective Physical Exam Physical Exam: Constitutional: No acute distress HEENT: EOMI, PERRLA Respiratory system: Good air entry bilaterally, no wheeze, no rhonchi, no crackles CVS: S1-S2 positive, no murmurs or gallops Abdomen: Soft, nontender, nondistended, positive bowel sounds x4 Extremities: +2 pulses bilaterally radialis/ dorsalis pedis, no cyanosis, no edema Neuro: Awake alert oriented x3 Psych: Normal mood and affect G/U: No [place] Skin: no rashes, warm and dry Lymphatic: no cervical or axillary lymphadenopathy Results & Data Results & Data ([facility]) Vital Signs (Past 12 Hours) Vital Signs Temp Pulse Resp BP Pulse Ox 08/31/20 12:08 36.8 C 98 H 18 133/82 95 08/31/20 11:08 85 17 124/62 08/31/20 10:08 86 23 121/70 96 08/31/20 09:07 92 H 17 114/67 94 08/31/20 08:08 128/77 08/31/20 08:00 97 H 08/31/20 07:07 82 23 121/79 97 08/31/20 06:07 88 16 117/87 95 08/31/20 05:07 94 H 22 133/73 95 08/31/20 04:07 86 18 103/58 L 95 08/31/20 03:22 36.9 C 84 14 114/69 93 08/31/20 02:07 88 15 100/64 96 08/31/20 01:07 93 H 15 111/70 96 08/31/20 04:07 08/31/20 04:07 Coding Level of Care Code 63081 Subseq Hosp Care Lvl 3 Diagnoses Acute delirium R41.0 Tobacco use disorder F17.200 Violent behavior with restraint use R45.6 Delirium tremens F10.231
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
--- NOTE | 2020-08-31 13:41 | Billing Data ---
Date of Service August 30, 2020 Coding Level of Care Code 24021 Subseq Hosp Care Lvl 2
== END 2020-08-31 13:39 | disposition left against medical advice (07) | DRG 894 ==
LOC: ED 02:16 → 3W 11:00 → SUATTDRO 11:00 → 3W 13:29 → 2S 08-27 07:49 → 1E 08-27 17:15
DX: F17.210 Nicotine dependence, cigarettes, uncomplicated; Z79.82 Long term (current) use of aspirin; K76.0 Fatty (change of) liver, not elsewhere classified; F10.231 Alcohol dependence with withdrawal delirium; R44.3 Hallucinations, unspecified

== ENCOUNTER 2020-10-02 04:47 | Inpatient (IN) ==
[2020-10-02] MEDS ORDERED: MULTI-VITAMIN INFUSION 10 ML, THIAMINE HCL 100 MG, FOLIC ACID 1 MG in SODIUM CHLORIDE 0... IV ONE (05:16)
[2020-10-02] MEDS ORDERED: ATIVAN IV ALCOHOL WITHDRAWL IV SCH (05:30)
[2020-10-02 05:43] LABS: Basophils # (auto) 0.05 K/uL (0-0.2); Basophils % (auto) 0.5 %; Eosinophils # (auto) 0.22 K/uL (0-0.5); Eosinophils % (auto) 2.2 %; Hematocrit (blood only) 38.6 % (37-47); Hemoglobin 13.3 g/dL (12.0-16.0); Immature Granulocytes # (auto) 0.02 K/uL (0.00-0.02); Immature Granulocytes % (auto) 0.2 %; Lymphocytes # (auto) 2.38 K/uL (1.2-3.4); Mean Corpuscular Hemoglobin 30.4 pg (25-34); Mean Corpuscular Hgb Conc 34.5 g/dL (32-36); Mean Corpuscular Volume 88.1 fL (80-100); Mean Platelet Volume 9.6 fL (7.4-10.4); Monocytes % (auto) 8.1 %; Neutrophils # (auto) 6.44 K/uL (1.4-6.5); Platelet Count 383 K/uL (130-400); RDW Coefficient of Variation 13.2 % (11.5-14.5); RDW Standard Deviation 42.3 fL (36.4-46.3); Red Blood Count 4.38 M/uL (4.2-5.4); White Blood Count 9.91 K/uL (4.8-10.8)
--- NOTE | 2020-10-02 05:53 | Emergency Department Note ---
History of Present Illness General Chief complaint: Alcohol Withdrawal Stated complaint: ALCOHOL WITHDRAWAL Time Seen by Provider: 10/02/20 05:15 History of Present Illness This 35-year-old female patient presents to the emergency department today for evaluation of alcohol withdrawal. The patient states she normally drinks 1/5 of liquor a day. She states she was drinking whiskey today. She states she believ es her last drink was 1 hour ago, but then states she is uncertain. Patient reports hearing her mother's voice earlier and notes a history of seizures associated with alcohol withdrawal. Patient reports associated nausea and vomiting just prior to arrival. She denies any recent fever or illness. No tremors or shakiness. No abdominal pain, chest pain, dyspnea. Patient was seen here yesterday for chest pain and had extensive work-up completed which did not show any acute etiology of her symptoms she has not taken any medications. She denies any additional drug use or tobacco. Patient denies any numbness or tingling. She states she is "seeing spots" but denies other visual disturbances . Home Medications Medication Instructions Recorded Confirmed Type albuterol sulfate 90 mcg/actuation 2 puff INHALATION QID PRN 07/21/20 10/01/20 History aerosol inhaler budesonide-formoterol HFA 80 2 puff INHALATION BID 07/21/20 10/01/20 History mcg-4.5 mcg/actuation aerosol inhaler (Symbicort) docusate sodium 100 mg capsule 100 mg PO BID PRN 08/19/20 10/01/20 History (Colace) naproxen sodium 220 mg tablet 220 mg PO BID PRN 08/19/20 10/01/20 History (Aleve) lorazepam 1 mg tablet (Ativan) 1 - 2 mg PO DAILY PRN #30 tab 08/31/20 10/01/20 Rx cefdinir 300 mg capsule 300 mg PO BID 7 Days #14 cap 10/01/20 Rx Allergies Allergy/AdvReac Type Severity Reaction Status Date / Time amoxicillin Allergy Intermediate Hives Verified 10/01/20 19:30 clavulanic acid Allergy Intermediate Hives Verified 10/01/20 19:30 [From Augmentin] Penicillins Allergy Intermediate Hives Verified 10/01/20 19:30 sulfamethoxazole Allergy Intermediate Hives Verified 10/01/20 19:30 [From Septra] trimethoprim [From Septra] Allergy Intermediate Hives Verified 10/01/20 19:30 famotidine [From Pepcid] Allergy Mild Red Skin Unverified 10/01/20 19:30 Splotches Past Med/Surg History Medical History Kidney stone Pulmonary nodule seen on imaging study Tobacco use disorder Surgical History No significant past surgical history Social History Smoking Status: Current every day smoker Tobacco Type: Cigarettes Cigarettes Per Day: 20; Second Hand Exposure: Yes; Hx Alcohol Use: Yes Alcohol type: hard liquor Hx Substance Use: No Preferred Language: Bulgarian Communication Ability: Effective Child Care Specialist Required: No Beliefs That Will Affect Care: None Current Living Situation: Parent and Family Current Living Situation Comment: mom and friend Feels Safe at Home: Yes Assistive Devices: None Review of Systems A total of 10 systems reviewed and were otherwise negative Physical Exam Vital Signs Vital Signs - 24 hr 10/02/20 04:51 10/02/20 05:36 10/02/20 05:38 Temperature 36 C L Temperature Source Temporal Artery Scan Pulse Rate 104 H 75 Pulse Rate [Brachial] 92 H Respiratory Rate 18 20 20 Respiratory Effort / Characteristics Non-Labored Respiratory Depth Normal Blood Pressure 135/77 Blood Pressure [Right Arm] 125/64 Blood Pressure Mean 96 Blood Pressure Mean [Right Arm] 84 Pulse Oximetry 97 97 97 Oxygen Delivery Method Room Air Room Air Room Air Sepsis Recent Fever Within 48 Hours No Sepsis New/Unexplained Change in Mental Status No Sepsis Action Taken by Nursing No Action Required VITALS: Vitals are noted on the nurse's note and reviewed by myself. Vital signs stable. GENERAL: This is a 35-year-old obese white female, in no acute distress, nondiaphoretic, well-developed well-nourished. Strong odor of alcohol emanating from the patient. SKIN: The skin was without rashes, erythema, edema, or bruising. There is no tenting of the skin. Capillary refill less than 2 seconds. HEAD: Normocephalic atraumatic. EARS: External auditory canals clear, tympanic membranes pearly perales without erythema or effusion bilaterally. EYES: Pupils equal round and reactive to light and accommodation. Conjunctivae without injection, sclerae without icterus. Extraocular movements intact. NOSE: Patent, turbinates without inflammation or discharge. No sinus tenderness. MOUTH: Mucous membranes moist. Tonsils are not enlarged. Pharynx without erythema or exudate. Uvula midline. Airway patent. Tongue does not deviate. NECK: Supple without nuchal rigidity. No lymphadenopathy. Cervical spine is nontender. No JVD. HEART: Regular rate and rhythm without murmurs gallops or rubs. LUNGS: Clear to auscultation bilaterally without wheezes, rales or rhonchi. No retractions or accessory muscle use. ABDOMEN: Positive bowel sounds x 4. Normal tympanic percussion. Soft, nontender, without masses or organomegaly. Crandall sign negative. No guarding or rebound tenderness. MUSCULOSKELETAL: No muscle atrophy, erythema, or edema noted. Full range of motion without joint tenderness in all extremities. No tenderness to palpation. Normal gait. Strength 5/5 throughout. NEURO: Patient was alert and oriented to person place and time. Normal sensation to light and sharp touch. Deep tendon reflexes 2+ throughout. No focal neurological deficits. Course Course The patient was seen and evaluated as above. An order was placed for continuous cardiac monitoring. The monitor shows a normal sinus rhythm at a rate of 75 bpm. IV access obtained, labs drawn. Patient hydrated with banana bag. Labs reviewed by myself. I discussed the findings with the patient at bedside. The patient is requesting inpatient management for her alcoholism and current neurologic symptoms. She is not interested in alcohol rehab at this time. She states she needs to "dry up then quit". Patient medicated with 1 dose of IV Ativan. I discussed the case with the manager of photography. I discussed the case with Dr. Hahn, [facility] physician. She did agree to see and evaluate the patient. Administered Medications Discontinued Medications Multivitamins 10 ml/ Thiamine HCl 100 mg/ Folic Acid 1 mg/Sodium Chloride 1,011.2 mls @ 1,011.2 mls/hr IV .Q1H ONE Stop: 10/02/20 06:15 Last Admin: 10/02/20 06:05 Dose: 1,011.2 mls/hr Documented by: [id number] Lorazepam (Ativan) 1 mg in 2 mls @ 2 mls/min IV NOW STA Stop: 10/02/20 06:15 Last Admin: 10/02/20 06:23 Dose: 2 mls/min Documented by: [id number] Medical Decision Making Differential Diagnosis Alcohol intoxication, toxicologic, infection, hypoglycemia, electrolyte abnormalities, cardiac sources, intracerebral event, neurologic, trauma, as well as other pathologies. Medical Records Attestation: I reviewed the patient's medical records. Home Medications Current Medication List: was personally reviewed by me Laboratory Data No leukocytosis, anemia, thrombocytopenia. Renal, hepatic function without significant abnormality. Potassium 2.8. Alcohol 74. Urine test negative. Urine drug screen negative. Result diagrams: 10/02/20 05:32 10/02/20 05:32 Lab Results 10/02/20 10/02/20 10/02/20 Range/Units 05:32 05:32 05:32 WBC 9.91 (4.8-10.8) K/uL RBC 4.38 (4.2-5.4) M/uL Hgb 13.3 (12.0-16.0) g/dL Hct 38.6 (37-47) % MCV 88.1 (80-100) fL MCH 30.4 (25-34) pg MCHC 34.5 (32-36) g/dL RDW Std Deviation 42.3 (36.4-46.3) fL RDW Coeff of Yulissa 13.2 (11.5-14.5) % Plt Count 383 (130-400) K/uL MPV 9.6 (7.4-10.4) fL Immature Gran % (Auto) 0.2 % Neut % (Auto) 65.0 % Lymph % (Auto) 24.0 % Caswell % (Auto) 8.1 % Eos % (Auto) 2.2 % Baso % (Auto) 0.5 % Neut # (Auto) 6.44 (1.4-6.5) K/uL Lymph # (Auto) 2.38 (1.2-3.4) K/uL Caswell # (Auto) 0.80 H (0.11-0.59) K/uL Eos # (Auto) 0.22 (0-0.5) K/uL Baso # (Auto) 0.05 (0-0.2) K/uL Immature Gran # (Auto) 0.02 (0.00-0.02) K/uL Sodium 135 L (136-145) mmol/L Potassium 2.8 L (3.5-5.1) mmol/L Chloride 101 (98-107) mmol/L Carbon Dioxide 24 (21-32) mmol/L Anion Gap 11.0 (3-11) BUN 8 (7-18) mg/dl Creatinine 0.66 (0.6-1.2) mg/dl Est Cr Clr Drug Dosing 131.9 ml/min Est GFR ( Amer) 134.5 ml/min Est GFR (Non-Af Amer) 116.1 ml/min BUN/Creatinine Ratio 12.4 (10-20) Glucose 108 H (70-99) mg/dl Calcium 7.1 L (8.5-10.1) mg/dl Total Bilirubin 0.6 (0.2-1) mg/dl AST 27 (15-37) U/L ALT 38 (12-78) U/L Alkaline Phosphatase 76 (45-117) U/L Total Protein 6.8 (6.4-8.2) gm/dl Albumin 3.7 (3.4-5.0) gm/dl Globulin 3.1 (2.5-4.0) gm/dl Albumin/Globulin Ratio 1.2 (0.9-2) POC Ur Test (NEG) Urine Opiates Screen (Neg) Ur Methadone, Qual (Neg) Urine Barbiturates (Neg) Ur Phencyclidine (PCP) (Neg) U Amphetamin/Meth Scrn (Neg) MDMA (Ecstasy) Screen (Neg) U Benzodiazepines Scrn (Neg) Ur Cocaine Metabolite (Neg) U Marijuana (THC) Screen (Neg) Ethyl Alcohol mg/dL 74.0 H (0-3) mg/dl 10/02/20 10/02/20 Range/Units 06:00 06:00 WBC (4.8-10.8) K/uL RBC (4.2-5.4) M/uL Hgb (12.0-16.0) g/dL Hct (37-47) % MCV (80-100) fL MCH (25-34) pg MCHC (32-36) g/dL RDW Std Deviation (36.4-46.3) fL RDW Coeff of Yulissa (11.5-14.5) % Plt Count (130-400) K/uL MPV (7.4-10.4) fL Immature Gran % (Auto) % Neut % (Auto) % Lymph % (Auto) % Caswell % (Auto) % Eos % (Auto) % Baso % (Auto) % Neut # (Auto) (1.4-6.5) K/uL Lymph # (Auto) (1.2-3.4) K/uL Caswell # (Auto) (0.11-0.59) K/uL Eos # (Auto) (0-0.5) K/uL Baso # (Auto) (0-0.2) K/uL Immature Gran # (Auto) (0.00-0.02) K/uL Sodium (136-145) mmol/L Potassium (3.5-5.1) mmol/L Chloride (98-107) mmol/L Carbon Dioxide (21-32) mmol/L Anion Gap (3-11) BUN (7-18) mg/dl Creatinine (0.6-1.2) mg/dl Est Cr Clr Drug Dosing ml/min Est GFR ( Amer) ml/min Est GFR (Non-Af Amer) ml/min BUN/Creatinine Ratio (10-20) Glucose (70-99) mg/dl Calcium (8.5-10.1) mg/dl Total Bilirubin (0.2-1) mg/dl AST (15-37) U/L ALT (12-78) U/L Alkaline Phosphatase (45-117) U/L Total Protein (6.4-8.2) gm/dl Albumin (3.4-5.0) gm/dl Globulin (2.5-4.0) gm/dl Albumin/Globulin Ratio (0.9-2) POC Ur Test NEG (NEG) Urine Opiates Screen Neg (Neg) Ur Methadone, Qual Neg (Neg) Urine Barbiturates Neg (Neg) Ur Phencyclidine (PCP) Neg (Neg) U Amphetamin/Meth Scrn Neg (Neg) MDMA (Ecstasy) Screen Neg (Neg) U Benzodiazepines Scrn Neg (Neg) Ur Cocaine Metabolite Neg (Neg) U Marijuana (THC) Screen Neg (Neg) Ethyl Alcohol mg/dL (0-3) mg/dl Blood Pressure Blood Pressure Findings: Normal blood pressure Head Trauma GCS Score: 15 MDM Narrative This 35-year-old female patient presents to the emergency department today for evaluation of alcohol withdrawal. The patient states she normally drinks 1/5 of whiskey daily. She states her last drink may have been an hour ago, but she is not clear on this. She states she is starting to have spots in her vision and auditory hallucinations. Medical alcohol found to be 74. The patient was medicated with a banana bag and Ativan while in the emergency department. She will be admitted to the hospitalist service for management of the withdrawal, her hypokalemia, and hallucinations. I did discuss with the patient that I strongly encouraged she follow-up and consider discharge to inpatient rehab facility. Please see hospitalist dictation regarding ongoing management care of this patient. The chart was completed utilizing [employer] Speech voice recognition software. Grammatical errors, random word insertions, pronoun errors, and incomplete sentences are an occasional consequence of this system due to software limitations, ambient noise, and hardware issues. Any formal questions or concerns about the content, text, or information contained within the body of this dictation should be directly addressed to the provider for clarification. Impression & Plan Acute hypokalemia, Alcoholic intoxication, Impending delirium tremens Discharge Plan Visit Data Chief Complaint: Alcohol Withdrawal Stated Complaint: ALCOHOL WITHDRAWAL ED Provider: Agnieszka Romo ED Midlevel Provider: Alma Delia Reyes Discharge Problem: Acute hypokalemia, Alcoholic intoxication, Impending delirium tremens Patient Disposition: Admitted As Inpatient Forms Stand Alone Forms: [facility], Suicide Prevention Resources, Virtual Emergency Department, Important Visit Information Prescriptions Prescriptions: No Action albuterol sulfate 90 mcg/actuation Hfa Aerosol Inhaler 2 puff INHALATION QID PRN (Reason: Shortness Of Breath Or Wheezing) RF: 0 budesonide-formoterol [Symbicort] 80-4.5 mcg/actuation Hfa Aerosol Inhaler 2 puff INHALATION BID RF: 0 docusate sodium [Colace] 100 mg capsule 100 mg PO BID PRN (Reason: Constipation) RF: 0 naproxen sodium [Aleve] 220 mg Tablet 220 mg PO BID PRN (Reason: Pain) RF: 0 cefdinir 300 mg capsule 300 mg PO BID 7 Days Qty: 14 RF: 0 lorazepam [Ativan] 1 mg tablet 1 - 2 mg PO DAILY PRN (Reason: anxiety) Qty: 30 RF: 0 Referrals Referrals: PCP,NO [Primary Care Provider] - Discharge Problem: Alcoholic intoxication Qualifiers: Complication of substance-induced condition: with delirium Qualified Code(s): F10.921 - Alcohol use, unspecified with intoxication delirium
[2020-10-02 06:09] LABS: Albumin Level 3.7 gm/dl (3.4-5.0); BUN Creatinine Ratio 12.4 (10-20); Calcium 7.1 mg/dl (8.5-10.1); Creatinine Clr Calc Pharmacy 131.9 ml/min; Est GFR (African American) 134.5 ml/min; Est GFR (Non-African American) 116.1 ml/min
[2020-10-02 06:11] LABS: Albumin Globulin Ratio 1.2 (0.9-2); Bilirubin,Total 0.6 mg/dl (0.2-1); Globulin 3.1 gm/dl (2.5-4.0); Total Protein 6.8 gm/dl (6.4-8.2)
[2020-10-02] MEDS ORDERED: LORazepam 1 MG/2 ML VIAL IV STA ×3 (06:14→17:55)
[2020-10-02 06:28] LABS: Amphetamines+Metham, Urine Neg (Neg); Barbiturates, Urine Neg (Neg); Benzodiazepine, Urine Neg (Neg); Cocaine, Urine Neg (Neg); MDMA (Ecstacy), Urine Neg (Neg); Methadone, Urine Neg (Neg); Opiate, Urine Neg (Neg); Phencyclidine, Urine Neg (Neg)
[2020-10-02 06:31] LABS: Potassium 2.8 mmol/L (3.5-5.1)
[2020-10-02] MEDS ORDERED: POTASSIUM CHLORIDE CRTAB 20 MEQ TABCR PO STA (06:37)
--- NOTE | 2020-10-02 06:55 | History & Physical Report ---
Date of Service October 02, 2020 Assessment & Plan (1) Alcohol withdrawal: Plan: Megan is a 35 yo F here with acute alcohol intoxication and presumptive withdrawal. - banana bag x 1 in ED - AWSS protocol with IV ativan - thiamine + folate supplement - zofran prn (2) Hypokalemia: Plan: - K level 2.8 on admission - no ekg changes - replacement ordered - trend BMP (3) Hypocalcemia: Plan: - Ca level low at 7.1 - check ionized level - ordered calcium gluc - trend level Diet: regular DVT ppx: low risk, ambulatory Dispo: Med/tele Code: Full, I discussed with patient History of Present Illness Primary Care Provider: NO PCP Megan is a 35 yo woman with a PMHx of alcohol use disorder who came to the [facility] ED for alcohol withdrawal management. She has been to the [facility] ED 9 times in the past 10 weeks with similar complaints. She drinks 1/5 liquor per day. Her last drink was roughly 3am on 10/02/20. She does report nausea and vomiting prior to arrival. She reports a history of alcohol withdrawal seizures. She says she has done inpatient alcohol rehab in the past - in the fall of 2017 in [place]. She wishes to reconnect with her counselor from there. Of note, she was seen in the [facility] ED on 10/01/20 for chest pain - she had an extensive work up that was ultimately negative. Her only complaint at this time is of shakiness. In the ED, she was afebrile, HR was mildly tachycardic at 104bpm. BP and breathing were normal. Her CBC was unremarkable. Potassium low at 2.8. calcium low at 7.1. Urine preg was negative. Liver panel WNL. Etoh level was 74.0. UDS pending. Urine culture drawn 10/01 pending. CXR from 10/01/20 showing no acute process. Chest CTA on 10/01/20 showing no PE, no consolidation, healing left anterior rib fractures, an unchanged 6mm pulmonary nodule of the left lingula. She was given 1mg IV Ativan and a banana bag x 1. Allergies Allergy/AdvReac Type Severity Reaction Status Date / Time amoxicillin Allergy Intermediate Hives Verified 10/02/20 06:58 clavulanic acid Allergy Intermediate Hives Verified 10/02/20 06:58 [From Augmentin] Penicillins Allergy Intermediate Hives Verified 10/02/20 06:58 sulfamethoxazole Allergy Intermediate Hives Verified 10/02/20 06:58 [From Septra] trimethoprim [From Septra] Allergy Intermediate Hives Verified 10/02/20 06:58 famotidine [From Pepcid] Allergy Mild Red Skin Unverified 10/02/20 06:58 Splotches Home Medications Medication Instructions Recorded Confirmed Type albuterol sulfate 90 mcg/actuation 2 puff INHALATION QID PRN 07/21/20 10/02/20 History aerosol inhaler budesonide-formoterol HFA 80 2 puff INHALATION BID 07/21/20 10/02/20 History mcg-4.5 mcg/actuation aerosol inhaler (Symbicort) docusate sodium 100 mg capsule 100 mg PO BID PRN 08/19/20 10/02/20 History (Colace) naproxen sodium 220 mg tablet 220 mg PO BID PRN 08/19/20 10/02/20 History (Aleve) lorazepam 1 mg tablet (Ativan) 1 - 2 mg PO DAILY PRN #30 tab 08/31/20 10/02/20 Rx cefdinir 300 mg capsule 300 mg PO BID 7 Days #14 cap 10/01/20 10/02/20 Rx Past Med/Surg History Medical History Kidney stone Pulmonary nodule seen on imaging study Tobacco use disorder Surgical History No significant past surgical history Social History Smoking Status: Current every day smoker Tobacco Type: Cigarettes Cigarettes Per Day: 20; Second Hand Exposure: Yes; Hx Alcohol Use: Yes Alcohol type: hard liquor Hx Substance Use: No Preferred Language: Taiwanese Communication Ability: Effective Salsa Dance Instructor Required: No Beliefs That Will Affect Care: None Current Living Situation: Parent and Family Current Living Situation Comment: mom and friend Feels Safe at Home: Yes Safety Concerns: Feels Safe At This Time Assistive Devices: None Review of Systems Gastrointestinal: + nausea Physical Exam Constitutional: WD/WN, vitals as above + disheveled; + uncomfortable Eyes: + anicteric sclerae ENMT: external ear and nose normal, oropharynx normal Neck: trachea midline Respiratory: normal respiratory effort, lungs clear to auscultation no cough Cardiovascular: Rate/Rhythm: regular rhythm and + tachycardic Heart Sounds: normal S1 and normal S2; no murmur Gastrointestinal (Abdomen): normal bowel sounds, soft, nontender, no hepatosplenomegaly Musculoskeletal: Head/Neck/Chest: normocephalic and head atraumatic Skin: no rashes, warm and dry Neurologic: moves all extremities +shakiness Psychiatric: A+Ox3, euthymic affect Results & Data Results & Data ([place]) Vital Signs (Past 12 Hours) Vital Signs Temp Pulse Pulse Resp BP BP Pulse Ox 10/02/20 05:38 75 20 97 10/02/20 05:36 92 H 20 125/64 97 10/02/20 04:51 36 C L 104 H 18 135/77 97 Supervising Physician Co-Signing Physician Notes Patient seen and examined, chart reviewed, case discussed with Dr. Shaver and I agree with her plan as above. Briefly, patient is a 35yo female with history of EtOH abuse, severe withdrawal with seizures in the past requiring MICU care presenting with EtOH withdrawal. Patient reports drinking 1/5 of liquor/day. She has not had any decrease or cutting down on her EtoH consumption. Her last drink was prior to arrival at 03:00. She states that she feels shaky. On exam patient is resting comfortably, NAD. Is not tremulous at present Skin - intact HEENT - NC/AT, PERRL, Neck supple, MMM Heart - +S1/S2, regular, not currently tachycardic, no m/r/g Lungs- CTA Abd - +BS, slightly tender in lower abdomen with no rebound/guarding/peritoneal signs Ext - No edema Labs and images reviewed Assessment/plan - 35yo female with concern for EtOH withdrawal. At present appears comfortable. Was given Ativan x 1mg IV in ER as well as banana bag -Admit to medical with telemery -AWSS with Ativan PRN -Thiamine and Folic acid -Nicotine patch -Continue Inhalers PRN
[2020-10-02] MEDS ORDERED: ACETAMINOPHEN 325 MG TAB PO PRN (09:51)
[2020-10-02] MEDS ORDERED: MAGNESIUM SULFATE / D5W 1 GM/100 ML BAG IV ONE (09:51)
[2020-10-02] MEDS ORDERED: ONDANSETRON INJ 2 MG/ML 2 ML VIAL IV PRN (09:51)
[2020-10-02] MEDS ORDERED: LORazepam 1 MG TAB PO PRN (09:51)
[2020-10-02] MEDS ORDERED: ATIVAN IV ALCOHOL WITHDRAWL IV PRN (10:19)
[2020-10-02] MEDS ORDERED: chlordiazePOXIDE ALCOHOL WITHDRAWL 50MG PO STA (10:19)
[2020-10-02] MEDS ORDERED: LORazepam 3 MG/6 ML VIAL IV PRN (10:19)
[2020-10-02] MEDS ORDERED: LORazepam 1 MG/2 ML VIAL IV PRN (10:19)
[2020-10-02] MEDS ORDERED: LORazepam 2 MG/4 ML VIAL IV PRN (10:19)
[2020-10-02] MEDS ORDERED: CALCIUM GLUCONATE 10% 1,000 MG in SODIUM CHLORIDE 0.9% 50 ML IV ONE (10:30)
[2020-10-02] MEDS: THIAMINE HCL 100 MG TAB PO SCH (12:19)
[2020-10-02] MEDS: MAGNESIUM SULFATE / D5W 1 GM/100 ML BAG IV SCH ×4 (12:19→16:20)
[2020-10-02] MEDS: NICOTINE 14 MG/24 HR PATCH TD SCH (12:20)
[2020-10-02] MEDS: FLUTICASONE/VILANTEROL 100/25MCG 14 PUFFS/INHALER INH SCH (12:20)
[2020-10-02] MEDS: FOLIC ACID 1 MG TAB PO SCH (12:20)
[2020-10-02] MEDS ORDERED: CALCIUM GLUCONATE 10% 2,000 MG in SODIUM CHLORIDE 0.9% 50 ML IV ONE (12:30)
[2020-10-02] MEDS: chlordiazePOXIDE HCl 25 MG CAP PO SCH ×3 (14:22→22:31)
[2020-10-02 14:45] LABS: BUN Creatinine Ratio 7.8 (10-20); Creatinine Clr Calc Pharmacy 110.3 ml/min; Est GFR (Non-African American) 98.4 ml/min
[2020-10-02] MEDS ORDERED: LORazepam 4 MG/8 ML VIAL IV PRN (16:49)
[2020-10-02] MEDS ORDERED: PROCHLORPERAZINE 5 MG in SYRINGE 4 ML IV PRN (16:57)
--- NOTE | 2020-10-02 17:06 | History & Physical Bridge Note ---
Date of Service October 02, 2020 History & Physical Bridge Note I have examined the patient, reviewed the History & Physical and in the interval since the performance of the History & Physical I have noted the following changes of clinical significance: Pt having auditory and visual hallucinations on the floor. SHe was not ordered any lorazepam or Librium. Review of EMR shows a significant benzo requirement one month ago and required a Precedex gtt in ICU for severe DTs. Pt reports a h/o seizures with EtOH withdrawal in past. SHe is feeling nauseated as well. Vitals reviewed NAD, overweight, alert, awake, oriented x 3 RRR no mgr CTAB no wcr ABd +BS soft NT ND Ext no edema SKin no rashes labs reviewed and lytes replete -EtOH dependence with delirium tremens--> h/o severe withdrawal and seizures in past requiring ICU stay -Add on Librium 50mg po qid -add on prn lorazepam at higher doses than our standard protocol. Previous hospitalization she was on ativan 5mg q4h plus Librium 75 tid plus Precedex -watch closely and low threshold to transfer to ICU if needed -replete lytes follow CBC< BMP, Mag
[2020-10-02] MEDS: LORazepam 3 MG/6 ML VIAL IV PRN (19:51)
--- NOTE | 2020-10-03 00:35 | Billing Data ---
Date of Service October 02, 2020 Coding Level of Care Code 99687 Initial Inpt Care Lvl 2
[2020-10-03] MEDS: LORazepam 3 MG/6 ML VIAL IV PRN ×5 (00:46→14:12)
[2020-10-03] MEDS: LORazepam 2 MG/4 ML VIAL IV PRN (03:58)
[2020-10-03] MEDS: chlordiazePOXIDE HCl 25 MG CAP PO SCH ×2 (03:58→09:12)
[2020-10-03 08:42] LABS: Basophils # (auto) 0.03 K/uL (0-0.2); Basophils % (auto) 0.4 %; Eosinophils % (auto) 7.2 %; Hematocrit (blood only) 40.4 % (37-47); Hemoglobin 13.4 g/dL (12.0-16.0); Immature Granulocytes # (auto) 0.02 K/uL (0.00-0.02); Immature Granulocytes % (auto) 0.2 %; Lymphocytes # (auto) 2.96 K/uL (1.2-3.4); Lymphocytes % (auto) 35.7 %; Mean Corpuscular Hgb Conc 33.2 g/dL (32-36); Mean Corpuscular Volume 90.6 fL (80-100); Mean Platelet Volume 10.2 fL (7.4-10.4); Monocytes # (auto) 0.51 K/uL (0.11-0.59); Monocytes % (auto) 6.2 %; Neutrophils # (auto) 4.16 K/uL (1.4-6.5); Neutrophils % (auto) 50.3 %; Platelet Count 356 K/uL (130-400); RDW Coefficient of Variation 13.5 % (11.5-14.5); RDW Standard Deviation 43.9 fL (36.4-46.3); Red Blood Count 4.46 M/uL (4.2-5.4); White Blood Count 8.28 K/uL (4.8-10.8)
[2020-10-03] MEDS: THIAMINE HCL 100 MG TAB PO SCH (09:12)
[2020-10-03] MEDS: FOLIC ACID 1 MG TAB PO SCH (09:12)
[2020-10-03] MEDS: NICOTINE 14 MG/24 HR PATCH TD SCH (09:17)
[2020-10-03] MEDS: FLUTICASONE/VILANTEROL 100/25MCG 14 PUFFS/INHALER INH SCH (09:17)
[2020-10-03 09:19] LABS: Albumin Globulin Ratio 0.9 (0.9-2); Albumin Level 3.2 gm/dl (3.4-5.0); BUN Creatinine Ratio 19.3 (10-20); Bilirubin,Total 0.5 mg/dl (0.2-1); Calcium 8.1 mg/dl (8.5-10.1); Creatinine Clr Calc Pharmacy 108.1 ml/min; Globulin 3.5 gm/dl (2.5-4.0); Potassium 3.4 mmol/L (3.5-5.1); Total Protein 6.7 gm/dl (6.4-8.2)
[2020-10-03] MEDS ORDERED: POTASSIUM CHLORIDE CRTAB 20 MEQ TABCR PO STA (10:17)
[2020-10-03] MEDS ORDERED: LORazepam 2 MG/4 ML VIAL IV STA (10:43)
[2020-10-03] MEDS: ALBUTEROL HFA 8 GM INHALER INH PRN (12:33)
--- NOTE | 2020-10-03 13:38 | Hospitalist Progress Note ---
Date of Service October 03, 2020 Assessment & Plan (1) Alcohol withdrawal: Plan: Megan is a 35 yo F here with acute alcohol intoxication and presumptive withdrawal. With severe agitation and elevated AWSS scores Requiring very large amounts of IV Ativan in addition to Librium DC Librium -Loaded with phenobarbital Continue Ativan as needed Continue thiamine and give 1 dose of IV 200 mg x 1 and continue p.o. in the morning Continue folate supplement -IM Haldol or p.o. olanzapine as needed for delirium-both given today Vital signs are stable (2) Hypokalemia: Plan: - K level 2.8 on admission - no ekg changes - replacement ordered - trend BMP (3) Hypocalcemia: Plan: Was given calcium gluconate on admission Improved (4) UTI (urinary tract infection): Plan: UA abnormal and urine culture growing pansensitive E. coli Treat with Keflex 500 mg p.o. twice daily x3 days (5) Asthma: Plan: No acute issues Continue home inhalers (6) DVT prophylaxis: Plan: Ambulation Disposition-continued stay, she is not safe to leave the hospital and should not be allowed to leave [place] at this time due to acute delirium Admission and Anticipated Discharge Date Admission Date: October 02, 2020 Subjective Patient was seen multiple times today for severe agitation. She was demanding to call the nursing home to try to get a hold of her boyfriend. She also was trying to use the TV remote as a phone. She reported having significant anxiety. She continued to threaten to leave the hospital but was unstable on her feet. Then she was throwing things across the room was given IM Haldol. She was given n umerous doses of IV Ativan and then loaded with phenobarbital for elevated alcohol withdrawal scales. She ate multiple trays of food and did not have any nausea. I discussed her care with psychiatry nurse liaison. Review of Systems Review of Systems: All systems reviewed & are unremarkable except as noted in HPI & below Physical Exam Constitutional: WD/WN, vitals as above Eyes: + anicteric sclerae Neck: trachea midline, no thyromegaly Respiratory: normal respiratory effort, lungs clear to auscultation Cardiovascular: RRR, no murmur, no edema Chest (Breasts): Chest: normal inspection of chest Gastrointestinal (Abdomen): normal bowel sounds, soft, nontender, no hepatosplenomegaly Musculoskeletal: Extremities: extremities normal to inspection; no cyanosis and no clubbing Skin: no rashes, warm and dry Neurologic: moves all extremities and awake; no focal motor deficits Psychiatric: Orientation: alert, oriented to person and + guarded; + uncooperative Affect: + anxious affect and + irritable affect Lymphatic: no lymphedema Results & Data Results & Data ([facility]) Vital Signs (Past 12 Hours) Vital Signs Temp Pulse Pulse Resp BP BP Pulse Ox 10/03/20 12:47 36.7 C 96 H 20 111/73 95 10/03/20 12:33 92 H 16 95 10/03/20 10:16 94 H 10/03/20 08:45 36.8 C 93 H 18 106/68 95 10/03/20 07:30 36.7 C 83 19 116/76 95 10/03/20 02:53 36.6 C 80 18 118/85 95 Laboratory Results 10/03/20 10/03/20 Range/Units 08:14 08:14 WBC 8.28 (4.8-10.8) K/uL RBC 4.46 (4.2-5.4) M/uL Hgb 13.4 (12.0-16.0) g/dL Hct 40.4 (37-47) % MCV 90.6 (80-100) fL MCH 30.0 (25-34) pg MCHC 33.2 (32-36) g/dL RDW Std Deviation 43.9 (36.4-46.3) fL RDW Coeff of Yulissa 13.5 (11.5-14.5) % Plt Count 356 (130-400) K/uL MPV 10.2 (7.4-10.4) fL Immature Gran % (Auto) 0.2 % Neut % (Auto) 50.3 % Lymph % (Auto) 35.7 % [place] % (Auto) 6.2 % Eos % (Auto) 7.2 % Baso % (Auto) 0.4 % Neut # (Auto) 4.16 (1.4-6.5) K/uL Lymph # (Auto) 2.96 (1.2-3.4) K/uL [place] # (Auto) 0.51 (0.11-0.59) K/uL Eos # (Auto) 0.60 H (0-0.5) K/uL Baso # (Auto) 0.03 (0-0.2) K/uL Immature Gran # (Auto) 0.02 (0.00-0.02) K/uL Sodium 139 (136-145) mmol/L Potassium 3.4 L (3.5-5.1) mmol/L Chloride 107 (98-107) mmol/L Carbon Dioxide 23 (21-32) mmol/L Anion Gap 9.0 (3-11) BUN 16 D (7-18) mg/dl Creatinine 0.82 (0.6-1.2) mg/dl Est Cr Clr Drug Dosing 108.1 ml/min Est GFR ( Amer) 109.0 ml/min Est GFR (Non-Af Amer) 94.0 ml/min BUN/Creatinine Ratio 19.3 (10-20) Glucose 109 H (70-99) mg/dl Calcium 8.1 L (8.5-10.1) mg/dl Magnesium 2.0 (1.8-2.4) mg/dl Total Bilirubin 0.5 (0.2-1) mg/dl AST 16 (15-37) U/L ALT 30 (12-78) U/L Alkaline Phosphatase 93 (45-117) U/L Total Protein 6.7 (6.4-8.2) gm/dl Albumin 3.2 L (3.4-5.0) gm/dl Globulin 3.5 (2.5-4.0) gm/dl Albumin/Globulin Ratio 0.9 (0.9-2) PG Care Time/CCT Total # of Minutes Spent Total Time Spent with Patient: Total time spent is greater than 50% in coordination of care (as documented) at patient's floor/unit and/or counseling patient: Prolonged Care Time Prolonged Care Time: Yes Total Prolonged Care Time: 90 I spent 90 minutes of prolonged care time with this patient today on 3 different visits and multiple phone calls and [employer] connect messages communicating with the nurses and discussing care with patient. Managing delirium tremens and transferring to progressive care unit Coding Level of Care Code 29983 Subseq Hosp Care Lvl 3 (25 - SIGNIFICANT, SEPARATELY IDENTIFIABLE ) Diagnoses Alcohol withdrawal F10.239 Hypokalemia E87.6 Hypocalcemia E83.51 DVT prophylaxis Z29.9 UTI (urinary tract infection) N39.0 Asthma J45.909 Additional Codes Prolonged Care Time - Prolonged Care Time: Yes ([id number])
[2020-10-03] MEDS ORDERED: OLANZapine ZYDIS 5 MG ORALLY DIS. TAB PO ONE (14:11)
[2020-10-03] MEDS: cephALEXin 500 MG CAP PO SCH ×2 (15:00→23:38)
[2020-10-03] MEDS ORDERED: HALOPERIDOL LACTATE 5 MG/ML 1 ML VIAL IM PRN (15:23)
[2020-10-03] MEDS ORDERED: THIAMINE HCL 200 MG in SODIUM CHLORIDE 0.9% 50 ML IV STA (21:42)
[2020-10-04 06:08] LABS: Basophils # (auto) 0.03 K/uL (0-0.2); Basophils % (auto) 0.4 %; Eosinophils # (auto) 0.44 K/uL (0-0.5); Hematocrit (blood only) 39.6 % (37-47); Hemoglobin 13.4 g/dL (12.0-16.0); Immature Granulocytes # (auto) 0.01 K/uL (0.00-0.02); Immature Granulocytes % (auto) 0.1 %; Lymphocytes # (auto) 2.66 K/uL (1.2-3.4); Lymphocytes % (auto) 36.3 %; Mean Corpuscular Hgb Conc 33.8 g/dL (32-36); Mean Corpuscular Volume 91.7 fL (80-100); Mean Platelet Volume 10.1 fL (7.4-10.4); Monocytes # (auto) 0.38 K/uL (0.11-0.59); Monocytes % (auto) 5.2 %; Neutrophils # (auto) 3.81 K/uL (1.4-6.5); Platelet Count 324 K/uL (130-400); RDW Coefficient of Variation 13.5 % (11.5-14.5); RDW Standard Deviation 44.7 fL (36.4-46.3); Red Blood Count 4.32 M/uL (4.2-5.4); White Blood Count 7.33 K/uL (4.8-10.8)
[2020-10-04 06:16] LABS: Prothrombin Time 10.2 Seconds (9.0-12.0)
[2020-10-04 06:39] LABS: Albumin Level 3.2 gm/dl (3.4-5.0); BUN Creatinine Ratio 23.9 (10-20); Calcium 7.9 mg/dl (8.5-10.1); Creatinine Clr Calc Pharmacy 140.8 ml/min; Est GFR (African American) 136.6 ml/min; Est GFR (Non-African American) 117.9 ml/min; Magnesium 1.9 mg/dl (1.8-2.4); Potassium 3.7 mmol/L (3.5-5.1)
[2020-10-04 06:42] LABS: Bilirubin,Total 0.4 mg/dl (0.2-1); Globulin 3.3 gm/dl (2.5-4.0); Phosphorus 3.3 mg/dl (2.5-4.9); Total Protein 6.5 gm/dl (6.4-8.2)
[2020-10-04] MEDS: NICOTINE 14 MG/24 HR PATCH TD SCH (09:41)
[2020-10-04] MEDS: cephALEXin 500 MG CAP PO SCH ×2 (09:42→19:47)
[2020-10-04] MEDS: THIAMINE HCL 100 MG TAB PO SCH (09:43)
[2020-10-04] MEDS: FLUTICASONE/VILANTEROL 100/25MCG 14 PUFFS/INHALER INH SCH (09:43)
[2020-10-04] MEDS: FOLIC ACID 1 MG TAB PO SCH (10:27)
--- NOTE | 2020-10-04 11:58 | Hospitalist Progress Note ---
Date of Service October 04, 2020 Assessment & Plan (1) Alcohol withdrawal: Plan: Megan is a 35 yo F here with acute alcohol intoxication and presumptive withdrawal. With severe agitation and elevated AWSS scores Requiring very large amounts of IV Ativan in addition to Librium in the first 24 hours of her stay The Librium was discontinued and she was then loaded with phenobarbital on 10/03 -Taper phenobarbital down to 60 mg p.o. every 8 hours today, 60 mg p.o. every 12 hours tomorrow, and 30 mg p.o. every 12 hours the next day then stop Continue Ativan as needed based on AWSS scale Continue IM Haldol or p.o. olanzapine if cooperative as needed for delirium or severe agitation Continue thiamine daily Continue folate supplement -Offered inpatient rehab but she declined, is interested in outpatient rehab, although I have doubts that she will follow through with this She is not safe to leave the hospital AGAINST MEDICAL ADVICE as she continues to be delirious (2) Hypokalemia: Plan: - K level 2.8 on admission, now normalized with replacement of magnesium and potassium - no ekg changes - trend BMP (3) Hypocalcemia: Plan: Was given calcium gluconate on admission Improved (4) UTI (urinary tract infection): Plan: UA abnormal and urine culture growing pansensitive E. coli Treat with Keflex 500 mg p.o. twice daily x3 days-last day of treatment will be 10/05 (5) Asthma: Plan: No acute issues Continue home inhalers (6) DVT prophylaxis: Plan: Ambulation Disposition-continued stay, she is not safe to leave the hospital and should not be allowed to leave [place] at this time due to acute delirium that is ongoing Admission and Anticipated Discharge Date Admission Date: October 02, 2020 Subjective Patient seemed to be sleepy for most of the night and morning as per nursing after receiving numerous doses of Ativan, phenobarbital, and Haldol yesterday. Today when I saw her, she was drowsy but woke up and followed all commands, was asking when she was getting in the hospital. She was reporting to be very hungry. She reports that she will not go to inpatient alcohol rehab, but is interested in hearing about outpatient rehabs. I saw her a second time later in the day and she was attempting to pull out her IV. She had already pulled out another IV this morning and was attempting to leave her room and decision was made to give more IM Haldol for significant agitation. When I saw her the second time later in the day, she was again trying to pull out her IV and was stating that she was going leave the hospital. She still appeared confused and did admit to having anxiety. Telemetry with normal sinus rhythm with rates in the 90s I discussed her care with psychiatry Review of Systems Review of Systems: All systems reviewed & are unremarkable except as noted in HPI & below Physical Exam Constitutional: WD/WN, vitals as above Eyes: + anicteric sclerae Neck: trachea midline, no thyromegaly Respiratory: normal respiratory effort, lungs clear to auscultation Cardiovascular: RRR, no murmur, no edema Chest (Breasts): Chest: normal inspection of chest Gastrointestinal (Abdomen): normal bowel sounds, soft, nontender, no hepatosplenomegaly Musculoskeletal: Extremities: extremities normal to inspection; no cyanosis and no clubbing Skin: no rashes, warm and dry Neurologic: moves all extremities and awake; no focal motor deficits Psychiatric: Orientation: alert, oriented to person, oriented to place, cooperative and + guarded Affect: + anxious affect and + irritable affect Lymphatic: no lymphedema Results & Data Results & Data ([facility]) Vital Signs (Past 12 Hours) Vital Signs Temp Pulse Pulse Resp BP Pulse Ox 10/04/20 11:46 37.0 C 106 H 22 115/87 96 10/04/20 09:00 37.0 C 91 H 20 117/80 93 10/04/20 07:21 94 H 10/04/20 04:09 36.7 C 95 H 20 118/86 94 10/04/20 00:03 36.3 C L Laboratory Results 10/04/20 10/04/20 10/04/20 Range/Units 05:44 05:44 05:44 WBC 7.33 (4.8-10.8) K/uL RBC 4.32 (4.2-5.4) M/uL Hgb 13.4 (12.0-16.0) g/dL Hct 39.6 (37-47) % MCV 91.7 (80-100) fL MCH 31.0 (25-34) pg MCHC 33.8 (32-36) g/dL RDW Std Deviation 44.7 (36.4-46.3) fL RDW Coeff of Yulissa 13.5 (11.5-14.5) % Plt Count 324 (130-400) K/uL MPV 10.1 (7.4-10.4) fL Immature Gran % (Auto) 0.1 % Neut % (Auto) 52.0 % Lymph % (Auto) 36.3 % [place] % (Auto) 5.2 % Eos % (Auto) 6.0 % Baso % (Auto) 0.4 % Neut # (Auto) 3.81 (1.4-6.5) K/uL Lymph # (Auto) 2.66 (1.2-3.4) K/uL [place] # (Auto) 0.38 (0.11-0.59) K/uL Eos # (Auto) 0.44 (0-0.5) K/uL Baso # (Auto) 0.03 (0-0.2) K/uL Immature Gran # (Auto) 0.01 (0.00-0.02) K/uL PT 10.2 (9.0-12.0) Seconds INR 1.0 (0.9-1.1) Sodium 138 (136-145) mmol/L Potassium 3.7 (3.5-5.1) mmol/L Chloride 107 (98-107) mmol/L Carbon Dioxide 24 (21-32) mmol/L Anion Gap 7.0 (3-11) BUN 15 (7-18) mg/dl Creatinine 0.63 (0.6-1.2) mg/dl Est Cr Clr Drug Dosing 140.8 ml/min Est GFR ( Amer) 136.6 ml/min Est GFR (Non-Af Amer) 117.9 ml/min BUN/Creatinine Ratio 23.9 H (10-20) Glucose 86 (70-99) mg/dl Calcium 7.9 L (8.5-10.1) mg/dl Phosphorus 3.3 (2.5-4.9) mg/dl Magnesium 1.9 (1.8-2.4) mg/dl Total Bilirubin 0.4 (0.2-1) mg/dl AST 18 (15-37) U/L ALT 28 (12-78) U/L Alkaline Phosphatase 89 (45-117) U/L Total Protein 6.5 (6.4-8.2) gm/dl Albumin 3.2 L (3.4-5.0) gm/dl Globulin 3.3 (2.5-4.0) gm/dl Albumin/Globulin Ratio 1.0 (0.9-2) PG Care Time/CCT Total # of Minutes Spent Total Time Spent with Patient: Total time spent is greater than 50% in co ordination of care (as documented) at patient's floor/unit and/or counseling patient: Coding Level of Care Code 75014 Subseq Hosp Care Lvl 2 Diagnoses Alcohol withdrawal F10.239 Hypokalemia E87.6 Hypocalcemia E83.51 UTI (urinary tract infection) N39.0 Asthma J45.909 DVT prophylaxis Z29.9
[2020-10-04] MEDS: ALBUTEROL HFA 8 GM INHALER INH PRN (15:05)
--- NOTE | 2020-10-04 15:26 | Communication Note ---
Date of Service: October 04, 2020 Attempted to see patient who was sleeping comfortably. Per report she had been in and out of sleep with some episodes of lucid thoughts. Direct Marketing Specialist did not feel it was appropriate to awake patient at this time and full psychiatric consult can be done at a later date. Per report patient continues to require high doses of medications to control her alcohol withdrawal but does seem to be making some improvement from days past. Liaison to continue to follow case and offer alcohol rehab when patient is better able to tolerate conversation.
[2020-10-04] MEDS: LORazepam 2 MG/4 ML VIAL IV PRN (22:53)
[2020-10-05 05:29] LABS: BUN Creatinine Ratio 26.3 (10-20); Creatinine Clr Calc Pharmacy 155.6 ml/min; Est GFR (African American) 141.2 ml/min; Est GFR (Non-African American) 121.8 ml/min
[2020-10-05] MEDS: ALBUTEROL HFA 8 GM INHALER INH PRN (08:48)
[2020-10-05] MEDS: cephALEXin 500 MG CAP PO SCH (09:37)
[2020-10-05] MEDS: FLUTICASONE/VILANTEROL 100/25MCG 14 PUFFS/INHALER INH SCH (09:37)
[2020-10-05] MEDS: NICOTINE 14 MG/24 HR PATCH TD SCH (09:37)
[2020-10-05] MEDS: FOLIC ACID 1 MG TAB PO SCH (09:37)
[2020-10-05] MEDS: THIAMINE HCL 100 MG TAB PO SCH (09:38)
[2020-10-05] MEDS: LORazepam 2 MG/4 ML VIAL IV PRN ×2 (11:35→15:15)
--- NOTE | 2020-10-05 15:26 | Psychiatric Consultation ---
Date of Consultation October 05, 2020 Impression / Recommendations Impression 35-year-old female with alcohol abuse who presents in alcohol withdrawal. Patient has since recovered and is starting to do better and at this time requesting to leave the hospital. Patient does report underlying anxieties and stress but denies that any issues are acute at the moment requiring psychiatric treatment. She denies need for rehab but is provided with a list of psychiatric resources should she decide to change her mind. There are no reasons for patient's capacity to be limited at this time. She is cleared from a psychiatric perspective to sign out AMA if so desired. (1) Alcohol withdrawal: Patient provided with outpatient psychiatric resources. Risk Factors Assessment Do You Have Access To A Gun?: No Protective Factors Assessment Employed: Yes Stable Relationships: Yes Supportive Family: Yes Good Rapport with Provider: Yes Psych History Identifying Data 35-year-old female with history of alcohol abuse presenting in alcohol withdrawal. Chief Complaint "I am fine I need to get out here because my grandma ". History of Present Illness Patient is a 35-year-old female who is well-known to the service due to previous admissions for similar presentations. This time patient presented in alcohol withdrawal after having consumed a large amount of alcohol voluntarily. She required ICU admission as well as multiple agents to get her under control. Patient was somnolent for the past several days however has been making incremental progress. Today patient was more awake and alert and willing to talk. She adamantly denied any suicidal or homicidal ideation. She denied any psychosis. She does acknowledge underlying anxiety which contributes to her drinking, but states that there are times where she goes weeks and weeks without drinking. She does report emotional stress tends to make her drinking worse. She denies any other drug use. Lengthy conversation was had with patient regarding appropriate alcohol usage, the utility of psychiatric medications and addressing underlying anxieties and stress, as well as the potential dangers of high amounts of alcohol use. Patient expressed agreement and understanding. She was open to take resources for the community although stated that due to her upcoming move she would prefer to establish herself in [place]. Patient is denying any psychiatric concerns at this time reports feeling safe going home. Past Psychiatric History Do You Have Access To A Gun?: No Allergies Allergy/AdvReac Type Severity Reaction Status Date / Time amoxicillin Allergy Intermediate Hives Verified 10/02/20 06:58 clavulanic acid Allergy Intermediate Hives Verified 10/02/20 06:58 [From Augmentin] Penicillins Allergy Intermediate Hives Verified 10/02/20 06:58 sulfamethoxazole Allergy Intermediate Hives Verified 10/02/20 06:58 [From Septra] trimethoprim [From Septra] Allergy Intermediate Hives Verified 10/02/20 06:58 famotidine [From Pepcid] Allergy Mild Red Skin Unverified 10/02/20 06:58 Splotches Home Medications Medication Instructions Recorded Confirmed Type albuterol sulfate 90 mcg/actuation 2 puff INHALATION QID PRN 07/21/20 10/02/20 History aerosol inhaler budesonide-formoterol HFA 80 2 puff INHALATION BID 07/21/20 10/02/20 History mcg-4.5 mcg/actuation aerosol inhaler (Symbicort) docusate sodium 100 mg capsule 100 mg PO BID PRN 08/19/20 10/02/20 History (Colace) naproxen sodium 220 mg tablet 220 mg PO BID PRN 08/19/20 10/02/20 History (Aleve) lorazepam 1 mg tablet (Ativan) 1 - 2 mg PO DAILY PRN #30 tab 08/31/20 10/02/20 Rx cefdinir 300 mg capsule 300 mg PO BID 7 Days #14 cap 10/01/20 10/02/20 Rx folic acid 1 mg tablet 1 mg PO QAM #30 tab 10/05/20 Rx lorazepam 1 mg tablet (Ativan) 1 mg PO Q8H PRN #30 tab 10/05/20 Rx nicotine 14 mg/24 hr daily 1 patch TRANSDERMAL DAILY #14 ea 10/05/20 Rx transdermal patch olanzapine 5 mg tablet (Zyprexa) 5 mg PO HS #30 tab 10/05/20 Rx thiamine HCl (vitamin B1) 100 mg 100 mg PO QAM #30 tab 10/05/20 Rx tablet (Vitamin B-1) Personal History Beliefs That Will Affect Care: None Patient History Medical History Kidney stone Pulmonary nodule seen on imaging study Tobacco use disorder Surgical History No significant past surgical history Social History Smoking Status: Current every day smoker Tobacco Type: Cigarettes Cigarettes Per Day: 20; Second Hand Exposure: Yes; Hx Alcohol Use: Yes Alcohol type: hard liquor Hx Substance Use: No Preferred Language: Bhutanese Communication Ability: Impaired Customs Consultant Required: No Beliefs That Will Affect Care: None Current Living Situation: Parent and Family Current Living Situation Comment: mom and friend Feels Safe at Home: Yes Safety Concerns: Feels Safe At This Time Assistive Devices: None Physical Exam Psychiatric: Orientation: alert and oriented x 3 Apperance: appropriately dressed Eye Contact: good eye contact Motor Behavior: no abnormal motor movements Speech: normal rate/rhythm/volume of speech Affect: + tearful affect Mood: + depressed mood Thought Process: linear/logical thought p rocess Thought Content: reality based without delusions Suicidal Thoughts: denies suicidal thoughts and denies suicidal plan Homicidal Thoughts: denies homicidal thoughts and denies homicidal plan Hallucinations: no auditory hallucinations and no visual hallucinations Cognition: recent memory grossly intact Estimated Intelligence: average estimated intelligence Insight: + fair insight Judgement: + fair judgement Vital Signs (Past 24 Hours): Last Vital Signs Temp 36.7 C 10/05/20 08:51 Pulse 103 H 10/05/20 08:53 Resp 16 10/05/20 08:53 BP 126/79 10/05/20 08:51 Pulse Ox 97 10/05/20 08:53 Review of Systems All systems reviewed & are unremarkable except as noted in HPI & below Results & Data (PSY) Medications Administered Albuterol (Albuterol Hfa 8 Gm Inhaler) 2 puffs INH QID PRN PRN Reason: Shortness Of Breath Or Wheezing Stop: 11/01/20 09:50 Last Admin: 10/05/20 08:48 Dose: 2 puffs Documented by: [id number] Admin: 10/04/20 15:05 Dose: 2 puffs Documented by: [id number] Admin: 10/03/20 12:33 Dose: 2 puffs Documented by: [id number] Cephalexin HCl (Cephalexin 500 Mg Cap) 500 mg PO BID OLAMIDE Stop: 10/05/20 21:01 Last Admin: 10/05/20 09:37 Dose: 500 mg Documented by: [id number] Admin: 10/04/20 19:47 Dose: 500 mg Documented by: [id number] Admin: 10/04/20 09:42 Dose: 500 mg Documented by: [id number] Admin: 10/03/20 23:38 Dose: Not Given Documented by: [id number] Admin: 10/03/20 15:00 Dose: 500 mg Documented by: [id number] Fluticasone/Vilanterol (Fluticasone/Vilanterol 100/25mcg 14 Puffs/Inhaler) 1 puffs INH DAILY OLAMIDE Stop: 11/01/20 09:59 Last Admin: 10/05/20 09:37 Dose: 1 puffs Documented by: [id number] Admin: 10/04/20 09:43 Dose: 1 puffs Documented by: [id number] Admin: 10/03/20 09:17 Dose: 1 puffs Documented by: [id number] Admin: 10/02/20 12:20 Dose: 1 puffs Documented by: [id number] Folic Acid (Folic Acid 1 Mg Tab) 1 mg PO QAM OLAMIDE Stop: 11/01/20 10:59 Last Admin: 10/05/20 09:37 Dose: 1 mg Documented by: [id number] Admin: 10/04/20 10:27 Dose: 1 mg Documented by: [id number] Admin: 10/03/20 09:12 Dose: 1 mg Documented by: [id number] Admin: 10/02/20 12:20 Dose: 1 mg Documented by: [id number] Haloperidol Lactate (Haloperidol Lactate 5 Mg/Ml 1 Ml Vial) 5 mg IM DAILY PRN PRN Reason: Agitation Stop: 11/02/20 15:22 Last Admin: 10/03/20 15:37 Dose: 5 mg Documented by: [id number] Lorazepam (Ativan) 2 mg in 4 mls @ 2 mls/min IV UD PRN; Protocol PRN Reason: EtOH Withdrawl AWSS Score 5,6 Stop: 11/01/20 10:18 Last Admin: 10/05/20 15:15 Dose: 2 mls/min Documented by: [id number] Admin: 10/05/20 11:35 Dose: 2 mls/min Documented by: [id number] Admin: 10/04/20 22:53 Dose: 2 mls/min Documented by: [id number] Admin: 10/03/20 03:58 Dose: 2 mls/min Documented by: [id number] Lorazepam (Ativan) 3 mg in 6 mls @ 4 mls/min IV UD PRN; Protocol PRN Reason: EtOH Withdrawl AWSS Score 7,8 Stop: 11/01/20 10:18 Last Admin: 10/03/20 14:12 Dose: 4 mls/min Documented by: [id number] Admin: 10/03/20 10:14 Dose: 4 mls/min Documented by: [id number] Admin: 10/03/20 09:13 Dose: 4 mls/min Documented by: [id number] Admin: 10/03/20 07:36 Dose: 4 mls/min Documented by: [id number] Admin: 10/03/20 00:46 Dose: 4 mls/min Documented by: [id number] Admin: 10/02/20 19:51 Dose: 4 mls/min Documented by: [id number] Lorazepam (Ativan) 4 mg in 8 mls @ 4 mls/min IV ONCE PRN; Protocol PRN Reason: EtOH Withdrawl AWSS Score >=9 Stop: 11/01/20 10:18 Last Admin: 10/03/20 12:51 Dose: 4 mls/min Documented by: [id number] Miscellaneous (Remove Nicoderm Patch) 1 ea N/A [id number] [facility] Stop: 11/01/20 09:50 Last Admin: 10/05/20 09:36 Dose: 1 ea Documented by: [id number] Admin: 10/04/20 09:39 Dose: Not Given Documented by: [id number] Admin: 10/03/20 09:16 Dose: 1 ea Documented by: [id number] Admin: 10/02/20 10:55 Dose: Not Given Documented by: [id number] Nicotine (Nicotine 14 Mg/24 Hr Patch) [address] [facility] Stop: 11/01/20 10:59 Last Admin: 10/05/20 09:37 Dose: 14 mg Documented by: [id number] Admin: 10/04/20 09:41 Dose: 14 mg Documented by: [id number] Admin: 10/03/20 09:17 Dose: Not Given Documented by: [id number] Admin: 10/02/20 12:20 Dose: Not Given Documented by: [id number] Ondansetron HCl (Ondansetron Inj 2 Mg/Ml 2 Ml Vial) 4 mg IV Q6H PRN PRN Reason: Nausea Stop: 11/01/20 09:50 Last Admin: 10/02/20 19:51 Dose: 4 mg Documented by: [id number] Phenobarbital (Phenobarbital 32.4 Mg Tab) 64.8 mg PO Q12H [facility] Stop: 10/05/20 20:01 Last Admin: 10/05/20 09:36 Dose: 64.8 mg Documented by: [id number] Thiamine HCl (Thiamine Hcl 100 Mg Tab) 100 mg PO QAM OLAMIDE Stop: 11/01/20 10:59 Last Admin: 10/05/20 09:38 Dose: 100 mg Documented by: [id number] Admin: 10/04/20 09:43 Dose: 100 mg Documented by: [id number] Admin: 10/03/20 09:12 Dose: 100 mg Documented by: [id number] Admin: 10/02/20 12:19 Dose: 100 mg Documented by: [id number] Coding Level of Care Code 57131 [facility] Intl Hosp Care Lvl 2 Diagnoses Alcohol withdrawal F10.239
--- NOTE | 2020-10-05 15:34 | Discharge Summary ---
Date of Service October 05, 2020 Admission HPI Per Admitting Provider Megan is a 35 yo woman with a PMHx of alcohol use disorder who came to the [facility] ED for alcohol withdrawal management. She has been to the [facility] ED 9 times in the past 10 weeks with similar complaints. She drinks 1/5 liquor per day. Her last drink was roughly 3am on 10/02/20. She does report nausea and vomiting prior to arrival. She reports a history of alcohol withdrawal seizures. She says she has done inpatient alcohol rehab in the past - in the fall of 2017 in [place]. She wishes to reconnect with her counselor from there. Of note, she was seen in the [facility] ED on 10/01/20 for chest pain - she had an extensive work up that was ultimately negative. Her only complaint at this time is of shakiness. In the ED, she was afebrile, HR was mildly tachycardic at 104bpm. BP and breathing were normal. Her CBC was unremarkable. Potassium low at 2.8. calcium low at 7.1. Urine preg was negative. Liver panel WNL. Etoh level was 74.0. UDS pending. Urine culture drawn 10/01 pending. CXR from 10/01/20 showing no acute process. Chest CTA on 10/01/20 showing no PE, no consolidation, healing left anterior rib fractures, an unchanged 6mm pulmonary nodule of the left lingula. She was given 1mg IV Ativan and a banana bag x 1. Principal Diagnosis Alcohol withdrawal Discharge Exam Constitutional WD/WN, vitals as above Eyes + anicteric sclerae Neck trachea midline, no thyromegaly Respiratory normal respiratory effort, lungs clear to auscultation Cardiovascular RRR, no murmur, no edema Chest (Breasts) Chest: normal inspection of chest Gastrointestinal (Abdomen) normal bowel sounds, soft, nontender, no hepatosplenomegaly Musculoskeletal Extremities: extremities normal to inspection; no cyanosis and no clubbing Skin no rashes, warm and dry Neurologic moves all extremities and awake; no focal motor deficits Psychiatric Orientation: alert, oriented x 3 and cooperative Affect: + anxious affect Lymphatic no lymphedema Discharge Data Allergies Allergy/AdvReac Type Severity Reaction Status Date / Time amoxicillin Allergy Intermediate Hives Verified 10/02/20 06:58 clavulanic acid Allergy Intermediate Hives Verified 10/02/20 06:58 [From Augmentin] Penicillins Allergy Intermediate Hives Verified 10/02/20 06:58 sulfamethoxazole Allergy Intermediate Hives Verified 10/02/20 06:58 [From Septra] trimethoprim [From Septra] Allergy Intermediate Hives Verified 10/02/20 06:58 famotidine [From Pepcid] Allergy Mild Red Skin Unverified 10/02/20 06:58 Splotches Consultations 10/02/20 06:22 ED Decision to Admit Stat 10/03/20 15:23 Consult Psychiatry Routine Hospital Course (1) Alcohol withdrawal: Megan is a 35 yo F here with acute alcohol intoxication and presumptive wi thdrawal. With severe agitation and elevated AWSS scores in the first 24 to 36 hours Requiring very large amounts of IV Ativan in addition to Librium in the first 24 hours of her stay The Librium was discontinued and she was then loaded with phenobarbital on 10/03 -Tapered down phenobarbital down to 60 mg p.o. every 8 hours, then 60 mg p.o. every 12 hours and then patient was much improved She was much improved and was wanting to be discharged as her grandmother had . She is going to try to remain sober and attend outpatient alcohol rehab. Strongly encouraged her to do so. She declined inpatient alcohol rehab. Appreciate psychiatry consultation-does not need inpatient psychiatric stay and is stable for discharge home Can continue lorazepam 1 mg p.o. every 8 hours as needed withdrawal symptoms We will prescribe olanzapine 5 mg p.o. nightly for anxiety and insomnia and agitation Continue thiamine daily Continue folic acid supplement (2) Hypokalemia: - K level 2.8 on admission, now normalized with replacement of magnesium and potassium - no ekg changes (3) Hypocalcemia: Was given calcium gluconate on admission Improved (4) UTI (urinary tract infection): UA abnormal and urine culture growing pansensitive E. coli Treated with Keflex 500 mg p.o. twice daily x3 days-last day of treatment will be 10/05 (5) Asthma: No acute issues Continue home inhalers (6) DVT prophylaxis: Ambulation Disposition-discharge to home Total Time Total Time Spent Total Time Spent (In Minutes): 35 minutes Discharge Plan Discharge Items Patient Disposition: Home - Self-Care Reason For Visit: ALCOHOL WITHDRAWAL Discharge Diagnosis: Alcohol withdrawal Condition on Discharge: Fair Activity: Resume your previous activity Non-emergency contact: Primary Care Provider Call non-emergency contact if: you have any medication questions and your symptoms worsen Follow-up/Referrals: Chiquis España MD [Physician] - (Please call Dr. España's office on Tuesday to schedule a hospital follow-up appointment.) PCP,NO [Primary Care Provider] - Diet: Regular Addtl Attending Provider Instructions: You were admitted for alcohol withdrawal and treated with Ativan, Librium, and phenobarbital. It is very important that you continue to not drink any alcohol moving forward. If you do not quit drinking alcohol, you will eventually from alcohol abuse. You can take lorazepam as needed for alcohol withdrawal, and take Zyprexa at bedtime for sleep. It is also important that you establish care with the outpatient alcohol rehab program. If you decide to go to an inpatient alcohol rehab program, that would be wonderful. Please get established with a primary care physician as soon as possible. Pending Studies at Discharge: No Stand-Alone Forms: My [facility] [employer], Smoking Cessation Medications and DC Order Prescriptions: New nicotine 14 mg/24 hr patch 24 hour 1 patch transdermal DAILY Qty: 14 RF: 0 thiamine HCl (vitamin B1) [Vitamin B-1] 100 mg Tablet 100 mg PO QAM Qty: 30 RF: 0 folic acid 1 mg Tablet 1 mg PO QAM Qty: 30 RF: 0 olanzapine [Zyprexa] 5 mg tablet 5 mg PO HS Qty: 30 RF: 0 Continued albuterol sulfate 90 mcg/actuation Hfa Aerosol Inhaler 2 puff INHALATION QID PRN (Reason: Shortness Of Breath Or Wheezing) RF: 0 budesonide-formoterol [Symbicort] 80-4.5 mcg/actuation Hfa Aerosol Inhaler 2 puff INHALATION BID RF: 0 docusate sodium [Colace] 100 mg capsule 100 mg PO BID PRN (Reason: Constipation) RF: 0 Changed lorazepam [Ativan] 1 mg tablet 1 mg PO Q8H PRN (Reason: anxiety or alcohol withdrawal symptoms) Qty: 30 RF: 0 Discontinued naproxen sodium [Aleve] 220 mg Tablet 220 mg PO BID PRN (Reason: Pain) RF: 0 cefdinir 300 mg capsule 300 mg PO BID 7 Days Qty: 14 RF: 0 lorazepam [Ativan] 1 mg tablet 1 - 2 mg PO DAILY PRN (Reason: anxiety) Qty: 30 RF: 0 Discharge Orders: Discharge Order (Routine); Ordered 10/05/20 Ordered By: Kesha Brizuela Admission Data Admit Date/Time: 10/02/20 06:37 Attending Provider: Kesha Brizuela Admit Provider: Kierra Hahn Primary Care Provider: PCP,NO Other Providers: Kierra Hahn ; Anais Juarez ; Dr Huy ; Yani Bass ; Robin Mitchell Other Interventions: Discharge Summary Assessment (RN) Last Done: 10/05/20 15:21 Coding Level of Care Code D/C DAY MANAGEMENT >30 MINS Diagnoses Alcohol withdrawal F10.239 Hypokalemia E87.6 Hypocalcemia E83.51 UTI (urinary tract infection) N39.0 Asthma J45.909 DVT prophylaxis Z29.9
== END 2020-10-05 15:41 | disposition home or self-care (01) | DRG 897 ==
LOC: ED 04:47 → SUATTDRO 06:37 → EDINP 06:37 → 1E 09:28 → EDINP 09:59 → 2W 14:39 → 2S 10-03 09:04 → 2E 10-03 15:36 → 1E 10-04 18:54

== ENCOUNTER 2020-10-18 12:39 | Observation (INO) ==
[2020-10-18] MEDS ORDERED: SODIUM CHLORIDE 0.9% 1000ML 1,000 ML IV SCH (13:15)
--- NOTE | 2020-10-18 13:15 | Emergency Department Note ---
Impression & Plan Acute delirium, AMS (altered mental status) ED Provider Note NAME: MIRACLE MALAGON AGE: 35 SEX: F : 1985 ARRIVES VIA: Ambulance INFORMANT: Patient ED PROVIDER(S): Medhat Rhoades DO CHIEF COMPLAINT: Found down HPI: Patient is a 35-year-old female with a past medical history of alcoholism and tobacco use who presents the ER as she was found down in her bedroom surrounded by alcohol/liquor bottles. She awakens to voice and states her name falls back to sleep. There is a smell of alcohol on her breath. History is otherwise limited secondary to mentation as she falls asleep quickly. Per report she was confused and out of it. ROS: Limited secondary to mentation PAST MEDICAL HISTORY:See Below PAST SURGICAL HISTORY:See Below FAMILY HISTORY:See Below SOCIAL HISTORY:See Below HOME MEDICATIONS:See Below ALLERGIES:See Below VITALS:See Below PHYSICAL EXAMINATION: GENERAL: Lying in bed awakens to voice rolling around falls asleep quickly HEAD: normal cephalic, small abrasion over left forehead EYE EXAM: normal conjunctiva, PERRL and EOM's grossly intact OROPHARYNX: no exudate, no erythema, lips, buccal mucosa, and tongue normal and mucous membranes are moist NECK: supple, no nuchal rigidity, no adenopathy, non-tender CHEST: stable to compression anteriorly and posteriorly LUNGS: clear to auscultation. Normal chest wall mechanics HEART: no murmurs, S1 normal and S2 normal ABDOMEN: abdomen soft, non-tender, normo-active bowel sounds, no masses, no rebound or guarding. PELVIS: stable to compression anteriorly and posteriorly BACK: Back is symmetrical on inspection and there is no deformity, no midline tenderness, no CVA tenderness. UPPER EXTREMITIES: full active and passive range of motion of all joints without tenderness to palpation LOWER EXTREMITIES: full active and passive range of motion of all joints without tenderness to palpation NEURO EXAM: Awakens to voice and states her name, cranial nerves are grossly intact 2 through 12, no focal deficit in the upper or lower extremities MEDICAL DECISION MAKING: Patient is a 35-year-old female brought in by EMS for altered mental status found surrounded by alcohol bottles. IV was established blood work was obtained. Labs show no significant leukocytosis or anemia. BMP with mild hypokalemia at 3.3. Chloride slightly elevated at 108. No gap. LFTs bilirubin unremarkable. Salicylates acetaminophen and alcohol were unremarkable. Covid ordered and pending. CT head was negative. Patient mentation improved slightly while in the ER but still significantly confused not oriented to place or time not able to follow commands. She continually recites her first name Miracle. She denies any suicidal or homicidal ideations. Question of this secondary to alcohol withdrawal delirium but cannot be certain at this time versus other drugs. Afebrile. No signs of meningitis or encephalitis. Updated bedside. Discussed with the hospitalist. Admitted for further work-up. Triage Nursing notes reviewed. Limited review of prior medical records performed Vital Signs: reviewed and remarkable for tachy Differential diagnosis: Differential diagnoses includes but is not limited to toxic, metabolic, in fectious, traumatic, cardiac, neurologic, hematologic, psychiatric and inflammatory etiologies. ER treatment provided: See below Diagnostics interpreted by me: ECG: none Cardiac Monitoring: An order was placed for continuous cardiac monitoring. The monitor shows a rate of 112 with sinus rhythm. Laboratory studies: As stated above and show below. Imaging studies: See below Consultation(s): Discussed with Ajay Millan for further evaluation Procedures: none Critical Care: None Past Med/Surg History Medical History Alcohol intoxication Impending delirium tremens Kidney stone Pulmonary nodule seen on imaging study Tobacco use disorder Surgical History No significant past surgical history Social History Smoking Status: Unknown if ever smoked Tobacco Type: Cigarettes Cigarettes Per Day: 20; Second Hand Exposure: Yes; Hx Alcohol Use: Yes Alcohol type: hard liquor Hx Substance Use: No Preferred Language: Armenian Communication Ability: Impaired 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: No Beliefs That Will Affect Care: None Current Living Situation: Parent and Family Current Living Situation Comment: mom and friend Feels Safe at Home: Yes Assistive Devices: None Allergies Allergies Allergy/AdvReac Type Severity Reaction Status Date / Time amoxicillin Allergy Intermediate Hives Verified 10/05/20 20:52 clavulanic acid Allergy Intermediate Hives Verified 10/05/20 20:52 [From Augmentin] Penicillins Allergy Intermediate Hives Verified 10/05/20 20:52 sulfamethoxazole Allergy Intermediate Hives Verified 10/05/20 20:52 [From Septra] trimethoprim [From Septra] Allergy Intermediate Hives Verified 10/05/20 20:52 famotidine [From Pepcid] Allergy Mild Red Skin Unverified 10/05/20 20:52 Splotches Home Meds Home Medications Medication Instructions Recorded Confirmed albuterol sulfate 90 mcg/actuation 2 puff INHALATION QID PRN 07/21/20 10/05/20 aerosol inhaler budesonide-formoterol HFA 80 2 puff INHALATION BID 07/21/20 10/05/20 mcg-4.5 mcg/actuation aerosol inhaler (Symbicort) docusate sodium 100 mg capsule 100 mg PO BID PRN 08/19/20 10/05/20 (Colace) Previous Rx's Medication Instructions Recorded folic acid 1 mg tablet 1 mg PO QAM #30 tab 10/05/20 lorazepam 1 mg tablet (Ativan) 1 mg PO Q8H PRN #30 tab 10/05/20 nicotine 14 mg/24 hr daily 1 patch TRANSDERMAL DAILY #14 ea 10/05/20 transdermal patch olanzapine 5 mg tablet (Zyprexa) 5 mg PO HS #30 tab 10/05/20 thiamine HCl (vitamin B1) 100 mg 100 mg PO QAM #30 tab 10/05/20 tablet (Vitamin B-1) Results & Data (ED) Vital Signs Vital Signs - 24 hr 10/18/20 12:44 10/18/20 12:53 10/18/20 16:28 Temperature 36.6 C Temperature Source Axillary Pulse Rate 108 H 114 H Pulse Rate [Apical] 111 H Pulse Rate from SpO2 Sensor 109 H Pulse Rhythm Regular Pulse Strength Normal Respiratory Rate 27 H 18 27 H Respiratory Effort / Characteristics Non-Labored Spontaneous Spontaneous Respiratory Depth Normal Blood Pressure 127/82 127/82 Blood Pressure Mean 97 97 Blood Pressure Position Lying Pulse Oximetry 97 98 98 Oxygen Delivery Method Room Air Room Air Sepsis Recent Fever Within 48 Hours No Sepsis New/Unexplained Change in Mental Status N/A Sepsis Action Taken by Nursing No Action Required 10/18/20 16:38 Temperature Temperature Source Pulse Rate 118 H Pulse Rate [Apical] Pulse Rate from SpO2 Sensor 118 H Pulse Rhythm Pulse Strength Respiratory Rate 19 Respiratory Effort / Characteristics Respiratory Depth Blood Pressure 116/82 Blood Pressure Mean 93 Blood Pressure Position Pulse Oximetry 99 Oxygen Delivery Method Sepsis Recent Fever Within 48 Hours Sepsis New/Unexplained Change in Mental Status Sepsis Action Taken by Nursing Laboratory Data Result diagrams: 10/18/20 14:12 10/18/20 14:12 Lab Results 10/18/20 10/18/20 10/18/20 Range/Units 14:12 14:12 14:12 WBC 8.99 (4.8-10.8) K/uL RBC 4.65 (4.2-5.4) M/uL Hgb 14.4 (12.0-16.0) g/dL Hct 42.7 (37-47) % MCV 91.8 (80-100) fL MCH 31.0 (25-34) pg MCHC 33.7 (32-36) g/dL RDW Std Deviation 48.4 H (36.4-46.3) fL RDW Coeff of Yulissa 14.8 H (11.5-14.5) % Plt Count 491 H (130-400) K/uL MPV 10.1 (7.4-10.4) fL Immature Gran % (Auto) 0.2 % Neut % (Auto) 56.0 % Lymph % (Auto) 30.6 % Ida % (Auto) 11.3 % Eos % (Auto) 1.0 % Baso % (Auto) 0.9 % Neut # (Auto) 5.03 (1.4-6.5) K/uL Lymph # (Auto) 2.75 (1.2-3.4) K/uL Ida # (Auto) 1.02 H (0.11-0.59) K/uL Eos # (Auto) 0.09 (0-0.5) K/uL Baso # (Auto) 0.08 (0-0.2) K/uL Immature Gran # (Auto) 0.02 (0.00-0.02) K/uL Sodium 144 (136-145) mmol/L Potassium 3.3 L (3.5-5.1) mmol/L Chloride 108 H (98-107) mmol/L Carbon Dioxide 27 (21-32) mmol/L Anion Gap 9.0 (3-11) BUN 11 (7-18) mg/dl Creatinine 0.98 (0.6-1.2) mg/dl Est Cr Clr Drug Dosing 89.1 ml/min Est GFR ( Amer) 87.8 ml/min Est GFR (Non-Af Amer) 75.8 ml/min BUN/Creatinine Ratio 11.5 (10-20) Glucose 97 (70-99) mg/dl Calcium 7.7 L (8.5-10.1) mg/dl Magnesium 1.4 L (1.8-2.4) mg/dl Total Bilirubin 0.4 (0.2-1) mg/dl AST 53 H (15-37) U/L ALT 48 (12-78) U/L Alkaline Phosphatase 83 (45-117) U/L Total Protein 7.2 (6.4-8.2) gm/dl Albumin 3.8 (3.4-5.0) gm/dl Globulin 3.4 (2.5-4.0) gm/dl Albumin/Globulin Ratio 1.1 (0.9-2) Salicylates < 1.7 L (2.8-20) mg/dl Acetaminophen < 2 L (10-30) ug/ml Ethyl Alcohol mg/dL (0-3) mg/dl COVID-19 Eval Order 10/18/20 10/18/20 10/18/20 Range/Units 14:12 14:12 17:15 WBC (4.8-10.8) K/uL RBC (4.2-5.4) M/uL Hgb (12.0-16.0) g/dL Hct (37-47) % MCV (80-100) fL MCH (25-34) pg MCHC (32-36) g/dL RDW Std Deviation (36.4-46.3) fL RDW Coeff of Yulissa (11.5-14.5) % Plt Count (130-400) K/uL MPV (7.4-10.4) fL Immature Gran % (Auto) % Neut % (Auto) % Lymph % (Auto) % Ida % (Auto) % Eos % (Auto) % Baso % (Auto) % Neut # (Auto) (1.4-6.5) K/uL Lymph # (Auto) (1.2-3.4) K/uL Ida # (Auto) (0.11-0.59) K/uL Eos # (Auto) (0-0.5) K/uL Baso # (Auto) (0-0.2) K/uL Immature Gran # (Auto) (0.00-0.02) K/uL Sodium (136-145) mmol/L Potassium (3.5-5.1) mmol/L Chloride (98-107) mmol/L Carbon Dioxide (21-32) mmol/L Anion Gap (3-11) BUN (7-18) mg/dl Creatinine (0.6-1.2) mg/dl Est Cr Clr Drug Dosing ml/min Est GFR ( Amer) ml/min Est GFR (Non-Af Amer) ml/min BUN/Creatinine Ratio (10-20) Glucose (70-99) mg/dl Calcium (8.5-10.1) mg/dl Magnesium Cancelled (1.8-2.4) mg/dl Total Bilirubin (0.2-1) mg/dl AST (15-37) U/L ALT (12-78) U/L Alkaline Phosphatase (45-117) U/L Total Protein (6.4-8.2) gm/dl Albumin (3.4-5.0) gm/dl Globulin (2.5-4.0) gm/dl Albumin/Globulin Ratio (0.9-2) Salicylates (2.8-20) mg/dl Acetaminophen (10-30) ug/ml Ethyl Alcohol mg/dL < 3.0 (0-3) mg/dl COVID-19 Eval Order Covid19 at [facility] Administered Medications Magnesium Sulfate/Dextrose (Magnesium Sulfate / D5w) 1 gm in 100 mls @ 50 mls/hr IV Q2H OLAMIDE Stop: 10/19/20 00:59 Last Admin: 10/18/20 17:10 Dose: 50 mls/hr Documented by: [id number] Discontinued Medications Albuterol (Albuterol 0.083% Nebu Soln 3 Ml Vial) 2.5 mg NEB NOW STA Stop: 10/18/20 16:09 Last Admin: 10/18/20 16:27 Dose: 2.5 mg Documented by: [id number] Sodium Chloride (Nss 1000ml) 1,000 mls @ 999 mls/hr IV .Q1H1M OLAMIDE Stop: 10/18/20 14:15 Last Admin: 10/18/20 14:36 Dose: 999 mls/hr Documented by: [id number] Calcium Gluconate 1,000 mg/ (Sodium Chloride) 60 mls @ 240 mls/hr IV NOW ONE Stop: 10/18/20 17:14 Last Admin: 10/18/20 16:38 Dose: 240 mls/hr Documented by: [id number] Methylprednisolone (Methylprednisolone 125 Mg/2 Ml Vial) 60 mg IV NOW STA Stop: 10/18/20 16:10 Last Admin: 10/18/20 16:38 Dose: 60 mg Documented by: [id number] Imaging Data Radiologist's Impression: Cervical Spine CT 10/18/20 13:10 CT SCAN OF THE CERVICAL SPINE CLINICAL HISTORY: Fall. COMPARISON STUDY: Chest CT dated 10/01/2020 and 07/21/2020. TECHNIQUE: CT scan of the cervical spine is performed from the skull base to the upper thoracic spine. Images are reviewed in the axial, sagittal, and coronal planes. IV contrast was not administered for this examination. A dose lowering technique was utilized adhering to the principles of ALARA. CT DOSE: 1945.66 mGy.cm FINDINGS: Skeletal structures: The skeletal structures are well mineralized. There is no evidence of acute fracture or subluxation. There are mild chronic superior endpl ate compression deformities of C7 and, T1, and T2. There is also chronic anterior wedging of the C5 vertebral body. These were also seen on prior chest CT scans. Vertebral body height is otherwise maintained throughout the cervical spine. Alignment is preserved. There is straightening of the cervical lordosis. The odontoid process and lateral masses are intact. The atlantoaxial articulation is preserved. The spinous processes appear intact Intervertebral discs: The disc spaces are well maintained. Central canal: Widely patent. Soft tissues: The prevertebral and paraspinous soft tissues are within normal limits. Calvarium: The visualized calvarium at the skull base appears intact. Brain parenchyma: Partially visualized brain parenchyma at the skull base is within normal limits. Sinuses and mastoids: The visualized paranasal sinuses are clear. The mastoid air cells are well pneumatized. Lung apices: Clear as visualized. IMPRESSION: There is no evidence of fracture or subluxation involving the cervical spine. ACT 112: Negative or not required by law. Electronically signed by: Zach Back M.D. 10/18/2020 4:[address] 10/18/20 13:10 CT SCAN OF THE BRAIN WITHOUT IV CONTRAST CLINICAL HISTORY: Fall. COMPARISON STUDY: CT of the brain dated 08/23/2020. TECHNIQUE: Unenhanced axial CT scan of the brain is performed from the vertex to the skull base. A dose lowering technique was utilized adhering to the princip les of ALA. The patient was scanned twice due to motion artifact. FINDINGS: Brain parenchyma: The brain parenchyma is normal in appearance. There is no hemorrhage, mass effect, or evidence of acute territorial ischemia by CT criteria. Epperson-white matter differentiation is preserved. No extra-axial fluid collection is seen. Ventricles, sulci, cisterns: Normal in configuration. Intracranial vasculature: The visualized intracranial vasculature at the skull base is normal in appearance. Calvarium: There is no depressed calvarial fracture. Sinuses and mastoids: The visualized paranasal sinuses are clear. The mastoid air cells are well pneumatized. Orbits: The bony orbits are grossly intact. IMPRESSION: No acute intracranial abnormality. ACT 112: Negative or not required by law. Electronically signed by: Zach Back M.D. 10/18/2020 3:51 PM Chest X-Ray 10/18/20 13:11 SINGLE VIEW CHEST CLINICAL HISTORY: Fall. FINDINGS: An AP, portable, upright chest radiograph is compared to chest x-ray and chest CT dated 10/01/2020. The cardiomediastinal silhouette is unremarkable. The lungs and pleural spaces are clear. No pneumothorax is seen. The bony thorax is grossly intact. IMPRESSION: No active disease in the chest. ACT 112: Negative or not required by law. Electronically signed by: Zach Back M.D. 10/18/2020 3:12 PM Discharge Plan Visit Data Chief Complaint: Mental Health Evaluation ED Provider: Medhat Rhoades Discharge Problem: Acute delirium, AMS (altered mental status) Forms Stand Alone Forms: [facility], Suicide Prevention Resources Prescriptions Prescriptions: No Action albuterol sulfate 90 mcg/actuation Hfa Aerosol Inhaler 2 puff INHALATION QID PRN (Reason: Shortness Of Breath Or Wheezing) RF: 0 budesonide-formoterol [Symbicort] 80-4.5 mcg/actuation Hfa Aerosol Inhaler 2 puff INHALATION BID RF: 0 docusate sodium [Colace] 100 mg capsule 100 mg PO BID PRN (Reason: Constipation) RF: 0 nicotine 14 mg/24 hr patch 24 hour 1 patch transdermal DAILY Qty: 14 RF: 0 thiamine HCl (vitamin B1) [Vitamin B-1] 100 mg Tablet 100 mg PO QAM Qty: 30 RF: 0 folic acid 1 mg Tablet 1 mg PO QAM Qty: 30 RF: 0 olanzapine [Zyprexa] 5 mg tablet 5 mg PO HS Qty: 30 RF: 0 lorazepam [Ativan] 1 mg tablet 1 mg PO Q8H PRN (Reason: anxiety or alcohol withdrawal symptoms) Qty: 30 RF: 0 Referrals Referrals: PCP,NO [Primary Care Provider] -
[2020-10-18 14:35] LABS: Basophils # (auto) 0.08 K/uL (0-0.2); Basophils % (auto) 0.9 %; Eosinophils # (auto) 0.09 K/uL (0-0.5); Hematocrit (blood only) 42.7 % (37-47); Hemoglobin 14.4 g/dL (12.0-16.0); Immature Granulocytes # (auto) 0.02 K/uL (0.00-0.02); Immature Granulocytes % (auto) 0.2 %; Lymphocytes # (auto) 2.75 K/uL (1.2-3.4); Lymphocytes % (auto) 30.6 %; Mean Corpuscular Hgb Conc 33.7 g/dL (32-36); Mean Corpuscular Volume 91.8 fL (80-100); Mean Platelet Volume 10.1 fL (7.4-10.4); Monocytes # (auto) 1.02 K/uL (0.11-0.59); Monocytes % (auto) 11.3 %; Neutrophils # (auto) 5.03 K/uL (1.4-6.5); Platelet Count 491 K/uL (130-400); RDW Coefficient of Variation 14.8 % (11.5-14.5); RDW Standard Deviation 48.4 fL (36.4-46.3); Red Blood Count 4.65 M/uL (4.2-5.4); White Blood Count 8.99 K/uL (4.8-10.8)
[2020-10-18 14:52] LABS: Albumin Level 3.8 gm/dl (3.4-5.0); BUN Creatinine Ratio 11.5 (10-20); Calcium 7.7 mg/dl (8.5-10.1); Creatinine Clr Calc Pharmacy 89.1 ml/min; Est GFR (African American) 87.8 ml/min; Est GFR (Non-African American) 75.8 ml/min; Potassium 3.3 mmol/L (3.5-5.1)
[2020-10-18 14:55] LABS: Albumin Globulin Ratio 1.1 (0.9-2); Bilirubin,Total 0.4 mg/dl (0.2-1); Globulin 3.4 gm/dl (2.5-4.0); Total Protein 7.2 gm/dl (6.4-8.2)
--- NOTE | 2020-10-18 15:13 | XRay Report ---
SINGLE VIEW CHEST CLINICAL HISTORY: Fall. FINDINGS: An AP, portable, upright chest radiograph is compared to chest x-ray and chest CT dated 09/21. The cardiomediastinal silhouette is unremarkable. The lungs and pleural spaces are clear. No pneumothorax is seen. The bony thorax is grossly intact. IMPRESSION: No active disease in the chest. ACT 112: Negative or not required by law. Electronically signed by: Zach Back M.D. 10/18/2020 3:12 PM
[2020-10-18 15:18] LABS: Acetaminophen < 2 ug/ml (10-30); Salicylate < 1.7 mg/dl (2.8-20)
--- NOTE | 2020-10-18 15:52 | CT Scan Report ---
CT SCAN OF THE BRAIN WITHOUT IV CONTRAST CLINICAL HISTORY: Fall. COMPARISON STUDY: CT of the brain dated 08/23/2020. TECHNIQUE: Unenhanced axial CT scan of the brain is performed from the vertex to the skull base. A d ose lowering technique was utilized adhering to the principles of ALARA. The patient was scanned twic e due to motion artifact. FINDINGS: Brain parenchyma: The brain parenchyma is normal in appearance. There is no hemorrhage, mass effect, or evidence of acute territorial ischemia by CT criteria. Epperson-white matter differentiation is preser lisa. No extra-axial fluid collection is seen. Ventricles, sulci, cisterns: Normal in configuration. Intracranial vasculature: The visualized intracranial vasculature at the skull base is normal in appe arance. Calvarium: There is no depressed calvarial fracture. Sinuses and mastoids: The visualized paranasal sinuses are clear. The mastoid air cells are well pneu matized. Orbits: The bony orbits are grossly intact. IMPRESSION: No acute intracranial abnormality. ACT 112: Negative or not required by law. Electronically signed by: Zach Back M.D. 10/18/2020 3:51 PM
[2020-10-18] MEDS ORDERED: ALBUTEROL 0.083% NEBU SOLN 3 ML VIAL NEB STA (16:08)
[2020-10-18] MEDS ORDERED: THIAMINE HCL 100 MG in SYRINGE 9 ML IV STA (16:09)
[2020-10-18] MEDS ORDERED: methylPREDNISolone 125 MG/2 ML VIAL IV STA (16:09)
[2020-10-18] MEDS ORDERED: FOLIC ACID 1 MG in SYRINGE 9.8 ML IV STA (16:09)
--- NOTE | 2020-10-18 16:21 | CT Scan Report ---
CT SCAN OF THE CERVICAL SPINE CLINICAL HISTORY: Fall. COMPARISON STUDY: Chest CT dated 10/01/2020 and 07/21/2020. TECHNIQUE: CT scan of the cervical spine is performed from the skull base to the upper thoracic spine . Images are reviewed in the axial, sagittal, and coronal planes. IV contrast was not administered fo r this examination. A dose lowering technique was utilized adhering to the principles of ALARA. CT DOSE: 1945.66 mGy.cm FINDINGS: Skeletal structures: The skeletal structures are well mineralized. There is no evidence of acute frac ture or subluxation. There are mild chronic superior endplate compression deformities of C7 and, T1, and T2. There is also chronic anterior wedging of the C5 vertebral body. These were also seen on prio r chest CT scans. Vertebral body height is otherwise maintained throughout the cervical spine. Alignm ent is preserved. There is straightening of the cervical lordosis. The odontoid process and lateral m asses are intact. The atlantoaxial articulation is preserved. The spinous processes appear intact Intervertebral discs: The disc spaces are well maintained. Central canal: Widely patent. Soft tissues: The prevertebral and paraspinous soft tissues are within normal limits. Calvarium: The visualized calvarium at the skull base appears intact. Brain parenchyma: Partially visualized brain parenchyma at the skull base is within normal limits. Sinuses and mastoids: The visualized paranasal sinuses are clear. The mastoid air cells are well pneu matized. Lung apices: Clear as visualized. IMPRESSION: There is no evidence of fracture or subluxation involving the cervical spine. ACT 112: Negative or not required by law. Electronically signed by: Zach Back M.D. 10/18/2020 4:20 PM
[2020-10-18 16:36] LABS: Magnesium 1.4 mg/dl (1.8-2.4)
[2020-10-18] MEDS ORDERED: CALCIUM GLUCONATE 10% 1,000 MG in SODIUM CHLORIDE 0.9% 50 ML IV ONE (17:00)
[2020-10-18] MEDS: MAGNESIUM SULFATE / D5W 1 GM/100 ML BAG IV SCH ×4 (17:10→22:20)
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
[2020-10-18 18:48] LABS: Appearance Urine Cloudy (Clear); Bacteria Urine Automated 3+ (Negative); Bilirubin Urine Negative (Negative); Blood Urine 3+ (Negative); Color Urine Dark Yellow; Epithelial Cell Urine Auto >30 /lpf (0-5); Glucose Urine UA Negative (Negative); Ketones Urine Negative (Negative); Leukocyte Esterase Urine 1+ (Negative); Nitrite Urine Positive (Negative); Protein Urine 1+ (Negative); Specific Gravity Urine 1.026 (1.000-1.030); Urobilinogen Urine Negative (Negative); WBC Urine Automated >30 /hpf (0-5)
[2020-10-18 19:10] LABS: Amphetamines+Metham, Urine Pos (Neg); Barbiturates, Urine Pos (Neg); Benzodiazepine, Urine Pos (Neg); Cocaine, Urine Neg (Neg); MDMA (Ecstacy), Urine Neg (Neg); Methadone, Urine Neg (Neg); Opiate, Urine Neg (Neg); Phencyclidine, Urine Neg (Neg)
[2020-10-18] MEDS ORDERED: cefTRIAXone SODIUM 2,000 MG in DEXTROSE 5% 50 ML IV SCH (19:30)
[2020-10-18] MEDS ORDERED: ALBUTEROL HFA 8 GM INHALER INH PRN (19:54)
[2020-10-18] MEDS ORDERED: ONDANSETRON INJ 2 MG/ML 2 ML VIAL IV PRN (19:54)
[2020-10-18] MEDS ORDERED: ACETAMINOPHEN 325 MG TAB PO PRN (19:54)
[2020-10-18] MEDS ORDERED: LORazepam 1 MG TAB PO PRN (20:01)
[2020-10-18] MEDS: D5W AND LACTATED RINGERS 1,000 ML IV SCH (20:14)
[2020-10-19] MEDS ORDERED: LORazepam 1 MG/2 ML VIAL IV PRN (01:58)
[2020-10-19] MEDS: D5W AND LACTATED RINGERS 1,000 ML IV SCH (04:32)
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
[2020-10-19 08:48] LABS: BUN Creatinine Ratio 6.9 (10-20); Calcium 7.8 mg/dl (8.5-10.1); Creatinine Clr Calc Pharmacy 91.5 ml/min; Est GFR (African American) 90.1 ml/min; Est GFR (Non-African American) 77.7 ml/min; Magnesium 2.2 mg/dl (1.8-2.4); Potassium 3.4 mmol/L (3.5-5.1)
[2020-10-19] MEDS ORDERED: FOLIC ACID 1 MG TAB PO SCH (09:00)
[2020-10-19] MEDS ORDERED: NICOTINE 14 MG/24 HR PATCH TD SCH (09:00)
[2020-10-19] MEDS ORDERED: CIPROFLOXACIN 500 MG TAB PO SCH (09:00)
[2020-10-19] MEDS ORDERED: THIAMINE HCL 100 MG TAB PO SCH (09:00)
[2020-10-19] MEDS ORDERED: FLUTICASONE/VILANTEROL 100/25MCG 14 PUFFS/INHALER INH SCH (09:00)
[2020-10-19] MEDS ORDERED: chlordiazePOXIDE HCl 25 MG CAP PO ONE (12:05)
[2020-10-19] MEDS ORDERED: chlordiazePOXIDE HCl 25 MG CAP PO SCH (21:00)
[2020-10-19] MEDS ORDERED: DOXYCYCLINE HYCLATE 100 MG CAP PO SCH (21:00)
[2020-10-22 05:46] LABS: 7-Aminoclonaz, Confirm NEGATIVE ng/mL (<25); Amobarbital, Urine Conf NEGATIVE ng/mL (<100); Amphetamine Urine, Confirm 1130 ng/mL (<250); Butalbital, Urine NEGATIVE ng/mL (<100); Hydro-Alp Ur, GC/MS NEGATIVE ng/mL (<25); Hydroxyethylflurazepam, Conf NEGATIVE ng/mL (<50); Hydroxymidazolam Ur, GC/MS NEGATIVE ng/mL (<50); Hydroxytriazolam NEGATIVE ng/mL (<50); Lorazepam, Ur GC/MS >2000 ng/mL (<50); Methamphetamine, Ur Confirm 9720 ng/mL (<250); Nordiazepam, Confirm NEGATIVE ng/mL (<50); Oxazepam Ur, GC/MS 84 ng/mL (<50); Pentobarbital, Urine Conf NEGATIVE ng/mL (<100); Phenobarbital, Urine 2052 ng/mL (<100); Secobarbital, Urine Conf NEGATIVE ng/mL (<100); Temazepam, Confirm NEGATIVE ng/mL (<50)
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
== END 2020-10-19 17:07 | disposition home or self-care (01) ==
LOC: ED 12:39 → INTOOBSV 17:59 → SUATTDRO 17:59 → 2S 17:59

== ENCOUNTER 2021-02-16 18:21 | Observation (INO) ==
[2021-02-16] MEDS ORDERED: HALOPERIDOL LACTATE 5 MG/ML 1 ML VIAL IV STA (18:31)
[2021-02-16] MEDS ORDERED: LORazepam 2 MG/4 ML VIAL IV STA (18:31)
[2021-02-16] MEDS ORDERED: LORazepam 2 MG/ML VIAL (IM USE) ONE (18:33)
--- NOTE | 2021-02-16 18:37 | Emergency Department Note ---
Impression & Plan Accidental drug overdose, Combative behavior, Elevated lactic acid level ED Provider Note CHIEF COMPLAINT: drug overdose HISTORY OF PRESENT ILLNESS: This 36 yo female patient presents to the emergency department with with police via EMS after her sister called when she overdosed on video chat. By report the patient's sister witnessed her injecting "heroin, ICE and meth into the femoral vein." The patient does not admit to any of it. Patient was given Narcan by EMS with adequate response. She presents combative, swearing at staff, threatening. Patient refuses to answer any questions and is attempting to swing/pull out her IV. REVIEW OF SYSTEMS: Limited review of systems secondary to the patient's agitation/drug overdose. ALLERGIES: see below MEDICATIONS: see below PMH: see below SOCIAL HISTORY: see below DDx: Overdose, toxicologic, infection, hypoglycemia, electrolyte abnormalities, cardiac sources, intracerebral event, neurologic, trauma, as well as other pathologies. PHYSICAL EXAM: Vital signs reviewed. General: Disheveled, chronically ill-appearing 36-year-old female in no significant distress. HEENT: No scleral icterus, PERRLA, neck supple. Atraumatic. Cardiovascular: Tachycardic rate and regular rhythm, no extra sounds. Pulmonary: Clear to auscultation bilaterally, normal work of breathing. Abdomen: Soft, nontender, nondistended, positive bowel sounds. Musculoskeletal: Atraumatic, no peripheral edema. Neurologic: Patient awake alert and oriented x 3, speech is clear Skin: Warm, dry, no rash. Multiple tattoos EMERGENCY DEPARTMENT COURSE/MDM: haldol 5 mg and ativan 2 mg IV for sedation. Pt became moderately hypotensive which responded to NSS. 4 L NSS, tachycardia persists. EKG revealed sinus tachycardia. Lactate persistently elevated x3, normal WBC. Total CK and troponin pending demeanor improved with sleep and asking for water Pt will be admitted [place] [facility] [place] for further management. MONITORING: An order for cardiac monitoring was placed and the patient is noted to be in a sinus tachycardia at 132 beats per minute. RADIOLOGY: see below EKG: Sinus tachycardia 137 bpm. Prolonged QT interval 485. No PVC, no PAC. Normal axis. Normal ST segments. I have personally spent greater than 75 minutes of critical care time in the direct management of this patient. This includes bedside care, interpretation of diagnostic studies, and testing, discussion with consultants, patient, and family members, and other required patient management activities. This 75 minutes is in excess of all separately billable procedures. DISPOSITION:admit Past Med/Surg History Medical History Alcohol intoxication Impending delirium tremens Kidney stone Pulmonary nodule seen on imaging study Tobacco use disorder Surgical History No significant past surgical history Social History Smoking Status: Current every day smoker Tobacco Type: Cigarettes Cigarettes Per Day: 3; Second Hand Exposure: Yes; Hx Alcohol Use: Yes Alcohol type: hard liquor Hx Substance Use: No Preferred Language: Welsh Communication Ability: Effective Principal Associate Required: No Beliefs That Will Affect Care: None Current Living Situation: Family Current Living Situation Comment: mom and friend Feels Safe at Home: Yes Assistive Devices: None Allergies Allergies Allergy/AdvReac Type Severity Reaction Status Date / Time amoxicillin Allergy Intermediate Hives Verified 02/16/21 19:46 clavulanic acid Allergy Intermediate Hives Verified 02/16/21 19:46 [From Augmentin] Penicillins Allergy Intermediate Hives Verified 02/16/21 19:46 sulfamethoxazole Allergy Intermediate Hives Verified 02/16/21 19:46 [From Septra] trimethoprim [From Septra] Allergy Intermediate Hives Verified 02/16/21 19:46 famotidine [From Pepcid] Allergy Mild Red Skin Unverified 02/16/21 19:46 Splotches Home Meds Home Medications Medication Instructions Recorded Confirmed docusate sodium 100 mg capsule 100 mg PO BID PRN 08/19/20 02/16/21 (Colace) buprenorphine 8 mg-naloxone 2 mg 2 film SUBLINGUAL DAILY 02/16/21 02/16/21 sublingual film Previous Rx's Medication Instructions Recorded folic acid 1 mg tablet 1 mg PO QAM #30 tab 10/05/20 thiamine HCl (vitamin B1) 100 mg 100 mg PO QAM #30 tab 10/05/20 tablet (Vitamin B-1) Results & Data (ED) Vital Signs Vital Signs - 24 hr 02/16/21 18:28 02/16/21 18:41 02/16/21 18:45 Temperature 37.4 C Temperature Source Oral Pulse Rate 127 H Pulse Rate [Apical] Pulse Rhythm [Apical] Pulse Strength [Apical] Respiratory Rate 22 Respiratory Effort / Characteristics Respiratory Depth Respiratory Pattern Blood Pressure 119/93 Blood Pressure [Left Arm] Blood Pressure [Right Arm] Blood Pressure Mean 101 Blood Pressure Mean [Left Arm] Blood Pressure Mean [Right Arm] Blood Pressure Position [Left Arm] Blood Pressure Position [Right Arm] Pulse Oximetry 95 Oxygen Delivery Method Room Air Room Air Room Air Oxygen Flow Rate Sepsis Recent Fever Within 48 Hours No Sepsis New/Unexplained Change in Mental Status No Sepsis Action Taken by Nursing No Action Required 02/16/21 19:00 02/16/21 19:30 02/16/21 20:00 Temperature Temperature Source Pulse Rate Pulse Rate [Apical] 111 H 107 H 102 H Pulse Rhythm [Apical] Pulse Strength [Apical] Respiratory Rate 22 23 18 Respiratory Effort / Characteristics Respiratory Depth Respiratory Pattern Blood Pressure Blood Pressure [Left Arm] 97/69 L 107/88 104/74 Blood Pressure [Right Arm] Blood Pressure Mean Blood Pressure Mean [Left Arm] 78 94 84 Blood Pressure Mean [Right Arm] Blood Pressure Position [Left Arm] Blood Pressure Position [Right Arm] Pulse Oximetry 93 97 98 Oxygen Delivery Method Oxymask Room Air Oxygen Flow Rate Sepsis Recent Fever Within 48 Hours Sepsis New/Unexplained Change in Mental Status Sepsis Action Taken by Nursing 02/16/21 20:09 02/16/21 20:30 02/16/21 20:45 Temperature Temperature Source Pulse Rate Pulse Rate [Apical] 107 H 100 H 98 H Pulse Rhythm [Apical] Pulse Strength [Apical] Respiratory Rate 18 18 17 Respiratory Effort / Characteristics Non-Labored Spontaneous Respiratory Depth Normal Respiratory Pattern Regular Blood Pressure Blood Pressure [Left Arm] 96/52 L Blood Pressure [Right Arm] Blood Pressure Mean Blood Pressure Mean [Left Arm] 66 Blood Pressure Mean [Right Arm] Blood Pressure Position [Left Arm] Blood Pressure Position [Right Arm] Pulse Oximetry 98 94 95 Oxygen Delivery Method Room Air Room Air Room Air Oxygen Flow Rate Sepsis Recent Fever Within 48 Hours Sepsis New/Unexplained Change in Mental Status Sepsis Action Taken by Nursing 02/16/21 21:00 02/16/21 21:30 02/16/21 22:03 Temperature Temperature Source Pulse Rate Pulse Rate [Apical] 101 H 101 H 104 H Pulse Rhythm [Apical] Pulse Strength [Apical] Respiratory Rate 19 17 Respiratory Effort / Characteristics Respiratory Depth Respiratory Pattern Blood Pressure Blood Pressure [Left Arm] 110/84 96/56 L 77/37 L Blood Pressure [Right Arm] Blood Pressure Mean Blood Pressure Mean [Left Arm] 92 69 50 Blood Pressure Mean [Right Arm] Blood Pressure Position [Left Arm] Blood Pressure Position [Right Arm] Pulse Oximetry 94 94 Oxygen Delivery Method Room Air Room Air Oxygen Flow Rate Sepsis Recent Fever Within 48 Hours Sepsis New/Unexplained Change in Mental Status Sepsis Action Taken by Nursing 02/16/21 22:05 02/16/21 22:12 02/16/21 22:20 Temperature Temperature Source Pulse Rate Pulse Rate [Apical] 104 H 107 H 102 H Pulse Rhythm [Apical] Regular Regular Pulse Strength [Apical] Normal Normal Respiratory Rate 14 14 14 Respiratory Effort / Characteristics Non-Labored Non-Labored Respiratory Depth Normal Normal Respiratory Pattern Blood Pressure Blood Pressure [Left Arm] 86/40 L 95/57 L 105/51 L Blood Pressure [Right Arm] Blood Pressure Mean Blood Pressure Mean [Left Arm] 55 69 69 Blood Pressure Mean [Right Arm] Blood Pressure Position [Left Arm] Right Lateral Lying Blood Pressure Position [Right Arm] Pulse Oximetry 98 94 92 Oxygen Delivery Method Oxymask Room Air Room Air Oxygen Flow Rate 5 Sepsis Recent Fever Within 48 Hours Sepsis New/Unexplained Change in Mental Status Sepsis Action Taken by Nursing 02/16/21 22:45 02/17/21 01:00 02/17/21 02:41 Temperature Temperature Source Pulse Rate Pulse Rate [Apical] 103 H 108 H 101 H Pulse Rhythm [Apical] Regular Regular Regular Pulse Strength [Apical] Normal Normal Normal Respiratory Rate 14 16 18 Respiratory Effort / Characteristics Non-Labored Non-Labored Spontaneous Non-Labored Spontaneous Respiratory Depth Normal Normal Normal Respiratory Pattern Regular Regular Blood Pressure Blood Pressure [Left Arm] 105/50 L 79/54 L Blood Pressure [Right Arm] 83/48 L Blood Pressure Mean Blood Pressure Mean [Left Arm] 68 62 Blood Pressure Mean [Right Arm] 59 Blood Pressure Position [Left Arm] Lying Lying Blood Pressure Position [Right Arm] Lying Pulse Oximetry 91 90 91 Oxygen Delivery Method Room Air Room Air Room Air Oxygen Flow Rate Sepsis Recent Fever Within 48 Hours Sepsis New/Unexplained Change in Mental Status Sepsis Action Taken by Detention Medications Current Medication List: was personally reviewed by me Laboratory Data Attestation: I reviewed the patient's lab results. Result diagrams: 02/16/21 18:34 02/16/21 18:34 Lab Results 02/16/21 02/16/21 02/16/21 Range/Units 18:34 18:34 18:34 WBC 7.86 (4.8-10.8) K/uL RBC 4.58 (4.2-5.4) M/uL Hgb 14.0 (12.0-16.0) g/dL Hct 41.8 (37-47) % MCV 91.3 (80-100) fL MCH 30.6 (25-34) pg MCHC 33.5 (32-36) g/dL RDW Std Deviation 58.3 H (36.4-46.3) fL RDW Coeff of Yulissa 17.7 H (11.5-14.5) % Plt Count 537 H (130-400) K/uL MPV 8.9 (7.4-10.4) fL Immature Gran % (Auto) 0.3 % Neut % (Auto) 44.3 % Lymph % (Auto) 42.5 % [place] % (Auto) 9.5 % Eos % (Auto) 3.1 % Baso % (Auto) 0.3 % Neut # (Auto) 3.49 (1.4-6.5) K/uL Lymph # (Auto) 3.34 (1.2-3.4) K/uL [place] # (Auto) 0.75 H (0.11-0.59) K/uL Eos # (Auto) 0.24 (0-0.5) K/uL Baso # (Auto) 0.02 (0-0.2) K/uL Immature Gran # (Auto) 0.02 (0.00-0.02) K/uL Sodium 146 H (136-145) mmol/L Potassium 3.5 (3.5-5.1) mmol/L Chloride 113 H (98-107) mmol/L Carbon Dioxide 23 (21-32) mmol/L Anion Gap 10.0 (3-11) BUN 2 L (7-18) mg/dl Creatinine 0.71 (0.6-1.2) mg/dl Est Cr Clr Drug Dosing 122.4 ml/min Est GFR ( Amer) 128.8 ml/min Est GFR (Non-Af Amer) 111.1 ml/min BUN/Creatinine Ratio 3.3 L (10-20) Glucose 81 (70-99) mg/dl Lactate (0.4-2.0) mmol/L Calcium 8.9 (8.5-10.1) mg/dl Total Bilirubin 0.3 (0.2-1) mg/dl AST 82 H (15-37) U/L ALT 59 (12-78) Alkaline Phosphatase 102 (45-117) U/L Total Protein 7.7 (6.4-8.2) gm/dl Albumin 3.8 (3.4-5.0) gm/dl Globulin 3.9 (2.5-4.0) gm/dl Albumin/Globulin Ratio 1.0 (0.9-2) Urine Color Urine Appearance (Clear) Urine pH (4.5-7.5) Ur Specific [place] (1.000-1.030) Urine Protein (Negative) Urine Glucose (UA) (Negative) Urine Ketones (Negative) Urine Blood (Negative) Urine Nitrite (Negative) Urine Bilirubin (Negative) Urine Urobilinogen (Negative) Ur Leukocyte Esterase (Negative) Urine Test (Negative) Salicylates 2.6 L (2.8-20) mg/dl Urine Opiates Screen (Neg) Ur Methadone, Qual (Neg) Acetaminophen < 2 L (10-30) ug/ml Urine Barbiturates (Neg) Ur Phencyclidine (PCP) (Neg) U Amphetamin/Meth Scrn (Neg) MDMA (Ecstasy) Screen (Neg) U Benzodiazepines Scrn (Neg) Ur Cocaine Metabolite (Neg) U Marijuana (THC) Screen (Neg) Ethyl Alcohol mg/dL (0-3) mg/dl SARS-CoV-2, RNA, NAAT (NEGATIVE) 02/16/21 02/16/21 02/16/21 Range/Units 18:34 18:35 18:40 WBC (4.8-10.8) K/uL RBC (4.2-5.4) M/uL Hgb (12.0-16.0) g/dL Hct (37-47) % MCV (80-100) fL MCH (25-34) pg MCHC (32-36) g/dL RDW Std Deviation (36.4-46.3) fL RDW Coeff of Yulissa (11.5-14.5) % Plt Count (130-400) K/uL MPV (7.4-10.4) fL Immature Gran % (Auto) % Neut % (Auto) % Lymph % (Auto) % [place] % (Auto) % Eos % (Auto) % Baso % (Auto) % Neut # (Auto) (1.4-6.5) K/uL Lymph # (Auto) (1.2-3.4) K/uL [place] # (Auto) (0.11-0.59) K/uL Eos # (Auto) (0-0.5) K/uL Baso # (Auto) (0-0.2) K/uL Immature Gran # (Auto) (0.00-0.02) K/uL Sodium (136-145) mmol/L Potassium (3.5-5.1) mmol/L Chloride (98-107) mmol/L Carbon Dioxide (21-32) mmol/L Anion Gap (3-11) BUN (7-18) mg/dl Creatinine (0.6-1.2) mg/dl Est Cr Clr Drug Dosing ml/min Est GFR ( Amer) ml/min Est GFR (Non-Af Amer) ml/min BUN/Creatinine Ratio (10-20) Glucose (70-99) mg/dl Lactate 4.4 H* (0.4-2.0) mmol/L Calcium (8.5-10.1) mg/dl Total Bilirubin (0.2-1) mg/dl AST (15-37) U/L ALT (12-78) Alkaline Phosphatase (45-117) U/L Total Protein (6.4-8.2) gm/dl Albumin (3.4-5.0) gm/dl Globulin (2.5-4.0) gm/dl Albumin/Globulin Ratio (0.9-2) Urine Color Yellow Urine Appearance Clear (Clear) Urine pH 6.5 (4.5-7.5) Ur Specific [place] 1.006 (1.000-1.030) Urine Protein Negative (Negative) Urine Glucose (UA) Negative (Negative) Urine Ketones Negative (Negative) Urine Blood Negative (Negative) Urine Nitrite Negative (Negative) Urine Bilirubin Negative (Negative) Urine Urobilinogen Negative (Negative) Ur Leukocyte Esterase Negative (Negative) Urine Test (Negative) Salicylates (2.8-20) mg/dl Urine Opiates Screen (Neg) Ur Methadone, Qual (Neg) Acetaminophen (10-30) ug/ml Urine Barbiturates (Neg) Ur Phencyclidine (PCP) (Neg) U Amphetamin/Meth Scrn (Neg) MDMA (Ecstasy) Screen (Neg) U Benzodiazepines Scrn (Neg) Ur Cocaine Metabolite (Neg) U Marijuana (THC) Screen (Neg) Ethyl Alcohol mg/dL 370.0 H (0-3) mg/dl SARS-CoV-2, RNA, NAAT (NEGATIVE) 02/16/21 02/16/21 02/16/21 Range/Units 18:40 18:40 19:33 WBC (4.8-10.8) K/uL RBC (4.2-5.4) M/uL Hgb (12.0-16.0) g/dL Hct (37-47) % MCV (80-100) fL MCH (25-34) pg MCHC (32-36) g/dL RDW Std Deviation (36.4-46.3) fL RDW Coeff of Yulissa (11.5-14.5) % Plt Count (130-400) K/uL MPV (7.4-10.4) fL Immature Gran % (Auto) % Neut % (Auto) % Lymph % (Auto) % [place] % (Auto) % Eos % (Auto) % Baso % (Auto) % Neut # (Auto) (1.4-6.5) K/uL Lymph # (Auto) (1.2-3.4) K/uL [place] # (Auto) (0.11-0.59) K/uL Eos # (Auto) (0-0.5) K/uL Baso # (Auto) (0-0.2) K/uL Immature Gran # (Auto) (0.00-0.02) K/uL Sodium (136-145) mmol/L Potassium (3.5-5.1) mmol/L Chloride (98-107) mmol/L Carbon Dioxide (21-32) mmol/L Anion Gap (3-11) BUN (7-18) mg/dl Creatinine (0.6-1.2) mg/dl Est Cr Clr Drug Dosing ml/min Est GFR ( Amer) ml/min Est GFR (Non-Af Amer) ml/min BUN/Creatinine Ratio (10-20) Glucose (70-99) mg/dl Lactate (0.4-2.0) mmol/L Calcium (8.5-10.1) mg/dl Total Bilirubin (0.2-1) mg/dl AST (15-37) U/L ALT (12-78) Alkaline Phosphatase (45-117) U/L Total Protein (6.4-8.2) gm/dl Albumin (3.4-5.0) gm/dl Globulin (2.5-4.0) gm/dl Albumin/Globulin Ratio (0.9-2) Urine Color Urine Appearance (Clear) Urine pH (4.5-7.5) Ur Specific [place] (1.000-1.030) Urine Protein (Negative) Urine Glucose (UA) (Negative) Urine Ketones (Negative) Urine Blood (Negative) Urine Nitrite (Negative) Urine Bilirubin (Negative) Urine Urobilinogen (Negative) Ur Leukocyte Esterase (Negative) Urine Test Negative (Negative) Salicylates (2.8-20) mg/dl Urine Opiates Screen Neg (Neg) Ur Methadone, Qual Neg (Neg) Acetaminophen (10-30) ug/ml Urine Barbiturates Neg (Neg) Ur Phencyclidine (PCP) Neg (Neg) U Amphetamin/Meth Scrn Neg (Neg) MDMA (Ecstasy) Screen Neg (Neg) U Benzodiazepines Scrn Neg (Neg) Ur Cocaine Metabolite Neg (Neg) U Marijuana (THC) Screen Neg (Neg) Ethyl Alcohol mg/dL (0-3) mg/dl SARS-CoV-2, RNA, NAAT NEGATIVE (NEGATIVE) 02/16/21 02/17/21 Range/Units 20:45 01:38 WBC (4.8-10.8) K/uL RBC (4.2-5.4) M/uL Hgb (12.0-16.0) g/dL Hct (37-47) % MCV (80-100) fL MCH (25-34) pg MCHC (32-36) g/dL RDW Std Deviation (36.4-46.3) fL RDW Coeff of Yulissa (11.5-14.5) % Plt Count (130-400) K/uL MPV (7.4-10.4) fL Immature Gran % (Auto) % Neut % (Auto) % Lymph % (Auto) % [place] % (Auto) % Eos % (Auto) % Baso % (Auto) % Neut # (Auto) (1.4-6.5) K/uL Lymph # (Auto) (1.2-3.4) K/uL [place] # (Auto) (0.11-0.59) K/uL Eos # (Auto) (0-0.5) K/uL Baso # (Auto) (0-0.2) K/uL Immature Gran # (Auto) (0.00-0.02) K/uL Sodium (136-145) mmol/L Potassium (3.5-5.1) mmol/L Chloride (98-107) mmol/L Carbon Dioxide (21-32) mmol/L Anion Gap (3-11) BUN (7-18) mg/dl Creatinine (0.6-1.2) mg/dl Est Cr Clr Drug Dosing ml/min Est GFR ( Amer) ml/min Est GFR (Non-Af Amer) ml/min BUN/Creatinine Ratio (10-20) Glucose (70-99) mg/dl Lactate 2.6 H* 2.6 H* (0.4-2.0) mmol/L Calcium (8.5-10.1) mg/dl Total Bilirubin (0.2-1) mg/dl AST (15-37) U/L ALT (12-78) Alkaline Phosphatase (45-117) U/L Total Protein (6.4-8.2) gm/dl Albumin (3.4-5.0) gm/dl Globulin (2.5-4.0) gm/dl Albumin/Globulin Ratio (0.9-2) Urine Color Urine Appearance (Clear) Urine pH (4.5-7.5) Ur Specific [place] (1.000-1.030) Urine Protein (Negative) Urine Glucose (UA) (Negative) Urine Ketones (Negative) Urine Blood (Negative) Urine Nitrite (Negative) Urine Bilirubin (Negative) Urine Urobilinogen (Negative) Ur Leukocyte Esterase (Negative) Urine Test (Negative) Salicylates (2.8-20) mg/dl Urine Opiates Screen (Neg) Ur Methadone, Qual (Neg) Acetaminophen (10-30) ug/ml Urine Barbiturates (Neg) Ur Phencyclidine (PCP) (Neg) U Amphetamin/Meth Scrn (Neg) MDMA (Ecstasy) Screen (Neg) U Benzodiazepines Scrn (Neg) Ur Cocaine Metabolite (Neg) U Marijuana (THC) Screen (Neg) Ethyl Alcohol mg/dL (0-3) mg/dl SARS-CoV-2, RNA, NAAT (NEGATIVE) Administered Medications Discontinued Medications Haloperidol Lactate (Haloperidol Lactate 5 Mg/Ml 1 Ml Vial) 10 mg IV NOW STA Stop: 02/16/21 18:32 Last Admin: 02/16/21 18:37 Dose: 5 mg Documented by: [id number] Lorazepam (Ativan) 2 mg in 4 mls @ 4 mls/min IV NOW STA Stop: 02/16/21 18:32 Last Admin: 02/16/21 18:36 Dose: 4 mls/min Documented by: [id number] Sodium Chloride (Nss 1000ml) 2,000 mls @ 999 mls/hr IV .Q2H1M ONE Stop: 02/16/21 21:09 Last Infusion: 02/16/21 20:38 Dose: 0 mls/hr Documented by: [id number] Admin: 02/16/21 19:13 Dose: 999 mls/hr Documented by: [id number] Sodium Chloride (Nss 1000ml) 1,000 mls @ 999 mls/hr IV .Q1H1M OLAMIDE Stop: 02/17/21 02:07 Last Infusion: 02/17/21 02:22 Dose: 0 mls/hr Documented by: [id number] Admin: 02/17/21 01:08 Dose: 999 mls/hr Documented by: [id number] Lorazepam (Lorazepam 2 Mg/Ml Vial (Im Use)) Confirm Administered Dose 2 mg .ROUTE .STK-MED ONE Stop: 02/16/21 18:34 Last Admin: 02/16/21 18:40 Dose: Not Given Documented by: [id number] Naloxone HCl (Naloxone Hcl 0.4 Mg/1 Ml Vial/Carp) 0.4 mg IV NOW STA Stop: 02/16/21 22:15 Last Admin: 02/16/21 22:16 Dose: 0.4 mg Documented by: [id number] Naloxone HCl (Naloxone Hcl 0.4 Mg/1 Ml Vial/Carp) Confirm Administered Dose 0.4 mg .ROUTE .STK-MED ONE Stop: 02/16/21 22:15 Last Admin: 02/16/21 22:19 Dose: Not Given Documented by: [id number] Imaging Data Radiologist's Impression: Chest X-Ray 02/16/21 18:26 SINGLE VIEW CHEST CLINICAL HISTORY: Overdose. FINDINGS: An AP, portable, semierect chest radiograph is compared to study dated 10/18/2020. Correlation is made with chest CT dated 10/01/2020. The examination is degraded by portable technique and patient rotation. The cardiomediastinal silhouette is unremarkable. Apparent increase in density in the left lower lung is related to overlying soft tissue. The lungs and pleural spaces are clear. No pneumothorax is seen. The bony thorax is grossly intact. IMPRESSION: No acute cardiopulmonary abnormality. ACT 112: Negative or not required by law. Electronically signed by: Zach Back M.D. 02/16/2021 6:59 PM Blood Pressure Blood Pressure Findings: Low blood pressure Blood Pressure Disposition: further management by hospitalist Discharge Plan Visit Data Chief Complaint: Overdose (Intentional) ED Provider: Zayra Garrett Discharge Problem: Accidental drug overdose, Combative behavior, Elevated lactic acid level Forms Stand Alone Forms: [facility], Suicide Prevention Resources Prescriptions Prescriptions: No Action docusate sodium [Colace] 100 mg capsule 100 mg PO BID PRN (Reason: Constipation) RF: 0 buprenorphine-naloxone 8-2 mg film 2 film sublingual DAILY RF: 0 thiamine HCl (vitamin B1) [Vitamin B-1] 100 mg Tablet 100 mg PO QAM Qty: 30 RF: 0 folic acid 1 mg Tablet 1 mg PO QAM Qty: 30 RF: 0 Referrals Referrals: PCP,NO [Primary Care Provider] - Discharge Problem: Accidental drug overdose Qualifiers: Encounter type: initial encounter Qualified Code(s): T50.901A - Poisoning by unspecified drugs, medicaments and biological substances, accidental (unintentional), initial encounter
[2021-02-16 18:59] LABS: Basophils # (auto) 0.02 K/uL (0-0.2); Basophils % (auto) 0.3 %; Eosinophils # (auto) 0.24 K/uL (0-0.5); Eosinophils % (auto) 3.1 %; Hematocrit (blood only) 41.8 % (37-47); Immature Granulocytes # (auto) 0.02 K/uL (0.00-0.02); Immature Granulocytes % (auto) 0.3 %; Lymphocytes # (auto) 3.34 K/uL (1.2-3.4); Lymphocytes % (auto) 42.5 %; Mean Corpuscular Hemoglobin 30.6 pg (25-34); Mean Corpuscular Hgb Conc 33.5 g/dL (32-36); Mean Corpuscular Volume 91.3 fL (80-100); Mean Platelet Volume 8.9 fL (7.4-10.4); Monocytes # (auto) 0.75 K/uL (0.11-0.59); Monocytes % (auto) 9.5 %; Neutrophils # (auto) 3.49 K/uL (1.4-6.5); Neutrophils % (auto) 44.3 %; Platelet Count 537 K/uL (130-400); RDW Coefficient of Variation 17.7 % (11.5-14.5); RDW Standard Deviation 58.3 fL (36.4-46.3); Red Blood Count 4.58 M/uL (4.2-5.4); White Blood Count 7.86 K/uL (4.8-10.8)
--- NOTE | 2021-02-16 19:00 | XRay Report ---
SINGLE VIEW CHEST CLINICAL HISTORY: Overdose. FINDINGS: An AP, portable, semierect chest radiograph is compared to study dated 10/18/2020. Correlati on is made with chest CT dated 10/01/2020. The examination is degraded by portable technique and patie nt rotation. The cardiomediastinal silhouette is unremarkable. Apparent increase in density in the left lower lung is related to overlying soft tissue. The lungs and pleural spaces are clear. No pneum othorax is seen. The bony thorax is grossly intact. IMPRESSION: No acute cardiopulmonary abnormality. ACT 112: Negative or not required by law. Electronically signed by: Zach Back M.D. 02/16/2021 6:59 PM
[2021-02-16 19:09] LABS: Pregnancy Test, Urine Negative (Negative)
[2021-02-16] MEDS ORDERED: SODIUM CHLORIDE 0.9% 1000ML 2,000 ML IV ONE (19:09)
[2021-02-16 19:18] LABS: Alanine Aminotransferase 59 (12-78); Albumin Level 3.8 gm/dl (3.4-5.0); Aspartate Aminotransferase 82 U/L (15-37); BUN Creatinine Ratio 3.3 (10-20); Blood Urea Nitrogen 2 mg/dl (7-18); Calcium 8.9 mg/dl (8.5-10.1); Carbon Dioxide 23 mmol/L (21-32); Chloride 113 mmol/L (98-107); Creatinine Clr Calc Pharmacy 122.4 ml/min; Est GFR (African American) 128.8 ml/min; Est GFR (Non-African American) 111.1 ml/min; Glucose 81 mg/dl (70-99); Potassium 3.5 mmol/L (3.5-5.1); Sodium 146 mmol/L (136-145)
[2021-02-16 19:21] LABS: Alkaline Phosphatase 102 U/L (45-117); Bilirubin,Total 0.3 mg/dl (0.2-1); Globulin 3.9 gm/dl (2.5-4.0); Total Protein 7.7 gm/dl (6.4-8.2)
[2021-02-16 19:25] LABS: Appearance Urine Clear (Clear); Bilirubin Urine Negative (Negative); Blood Urine Negative (Negative); Color Urine Yellow; Glucose Urine UA Negative (Negative); Ketones Urine Negative (Negative); Leukocyte Esterase Urine Negative (Negative); Nitrite Urine Negative (Negative); Protein Urine Negative (Negative); Specific Gravity Urine 1.006 (1.000-1.030); Urobilinogen Urine Negative (Negative); pH Urine 6.5 (4.5-7.5)
[2021-02-16 19:37] LABS: Amphetamines+Metham, Urine Neg (Neg); Barbiturates, Urine Neg (Neg); Benzodiazepine, Urine Neg (Neg); Cocaine, Urine Neg (Neg); MDMA (Ecstacy), Urine Neg (Neg); Methadone, Urine Neg (Neg); Opiate, Urine Neg (Neg); Phencyclidine, Urine Neg (Neg)
[2021-02-16 19:51] LABS: Acetaminophen < 2 ug/ml (10-30); Salicylate 2.6 mg/dl (2.8-20)
[2021-02-16] MEDS ORDERED: NALOXONE HCL 0.4 MG/1 ML VIAL/CARP IV STA (22:14)
[2021-02-16] MEDS ORDERED: NALOXONE HCL 0.4 MG/1 ML VIAL/CARP ONE (22:14)
[2021-02-17] MEDS ORDERED: SODIUM CHLORIDE 0.9% 1000ML 1,000 ML IV SCH (01:07)
[2021-02-17] MEDS ORDERED: VANCOMYCIN CONSULT ACTIVE PRN (02:38)
[2021-02-17] MEDS ORDERED: VANCOMYCIN HCL 1,750 MG in SODIUM CHLORIDE 0.9% 500 ML IV ONE (02:38)
--- NOTE | 2021-02-17 03:24 | History & Physical Report ---
Date of Service February 17, 2021 Assessment & Plan (1) Accidental drug overdose: Plan: Megan is a 36 yo woman brought in for polysubstance overdose. - per report of EMS, patient injected both heroin and methamphetamines - depressed mental status and hypotension are sequelae of heroin overdose. Serum glucose normal. - 4 liters of NSS bloused in ED due to soft blood pressures. Continence maintenance fluids - tachycardia may be reflexive to low BP or due to methamphetamine overdose. D- dimer ordered - if elevated would recommend CTA of chest to rule out PE - 1 dose of vancomycin given in ED for injected drug use and risk of bacteremia - admit to med/tele for continued hemodynamic monitoring - no indication this was a suicide attempt --> hold off on psych consult (2) Elevated lactic acid level: Plan: - lactate 4.4 on admission --> improved to 2.6 with IV hydration - trend until <2 (3) Alcoholic intoxication: Plan: - etoh level 370 on admission - AWSS protocol ordered (4) Elevated AST (SGOT): Plan: - AST at 82 on admission - history of etoh use disorder - trend CMP (5) Thrombocytosis: Plan: - platelet count 537 on admission - reactive ? - trend CBC (6) Prolonged Q-T interval on ECG: Plan: - QTc noted to be 485ms - avoid QTc prolonging agents - repeat EKG in am Diet: Regular DVT ppx: Lovenox Dispo: Med/tele Code: Full History of Present Illness Primary Care Provider: NO PCP Megan is a 36 yo female with a PMHx of alcohol use disorder and tobacco abuse who was brought to the [facility] ED via EMS for evaluation of drug use/intoxication. Megan's sister apparently called EMS when she witness Megan inject substances into her femoral vein. Megan had allegedly told her sister the injection contained heroin and ICE (methamphetamine). When asked, Megan denied any IV drug use. She denied any intent of self harm / suicide attempt. On arrival to the ED, Megan was altered and violent. She was afebrile, tachycardic to 127, hypotensive (BP 79/54), with a normal RR and O2 sat of 91% on room air. She was given Haldol 10mg and Lorazepam 2mg IV for sedation. She was administered 0.4mg naloxone. Her etoh level was 370. Acetaminophen and salicylate levels not detectable. Her urine drug screen was negative. UA was benign. Urine test negative. COVID 19 neg. WBC and Hgb were normal, platelets increased to 537k/Ul. Glucose was 81. Lactate was 4.4 --> 2.6. AST elevated to 82, ALT normal at 59. Trop pending. CK pending. EKG showing sinus tachycardia, QTc prolongation at 485ms. CXR normal. She was given a dose of vancomycin and 4 liters of NSS. Allergies Allergy/AdvReac Type Severity Reaction Status Date / Time amoxicillin Allergy Intermediate Hives Verified 02/16/21 19:46 clavulanic acid Allergy Intermediate Hives Verified 02/16/21 19:46 [From Augmentin] Penicillins Allergy Intermediate Hives Verified 02/16/21 19:46 sulfamethoxazole Allergy Intermediate Hives Verified 02/16/21 19:46 [From Septra] trimethoprim [From Septra] Allergy Intermediate Hives Verified 02/16/21 19:46 famotidine [From Pepcid] Allergy Mild Red Skin Unverified 02/16/21 19:46 Splotches Home Medications Medication Instructions Recorded Confirmed Type docusate sodium 100 mg capsule 100 mg PO BID PRN 08/19/20 02/16/21 History (Colace) folic acid 1 mg tablet 1 mg PO QAM #30 tab 10/05/20 02/16/21 Rx thiamine HCl (vitamin B1) 100 mg 100 mg PO QAM #30 tab 10/05/20 02/16/21 Rx tablet (Vitamin B-1) buprenorphine 8 mg-naloxone 2 mg 2 film SUBLINGUAL DAILY 02/16/21 02/16/21 History sublingual film Past Med/Surg History Medical History Alcohol intoxication Impending delirium tremens Kidney stone Pulmonary nodule seen on imaging study Tobacco use disorder Surgical History No significant past surgical history Social History Smoking Status: Current every day smoker Tobacco Type: Cigarettes Cigarettes Per Day: 3; Second Hand Exposure: Yes; Hx Alcohol Use: Yes Alcohol type: hard liquor Hx Substance Use: No Preferred Language: Macanese Communication Ability: Effective Coin Box Inspector Required: No Beliefs That Will Affect Care: None Current Living Situation: Family Current Living Situation Comment: mom and friend Feels Safe at Home: Yes Assistive Devices: None Review of Systems Review of Systems: Unobtainable due to cognitive status Physical Exam Constitutional: + altered mental status and + disheveled; no acute distress Eyes: + anicteric sclerae ENMT: external ear and nose normal, oropharynx normal Neck: normal visual inspection and trachea midline Respiratory: normal respiratory effort, lungs clear to auscultation no cough Cardiovascular: Rate/Rhythm: + tachycardic Heart Sounds: normal S1 and normal S2; no murmur Extremities: no pedal edema Gastrointestinal (Abdomen): normal bowel sounds, soft, nontender, no hepatosplenomegaly Musculoskeletal: Head/Neck/Chest: normocephalic and head atraumatic Skin: no rashes, warm and dry + tatoos Neurologic: + confused Genitourinary: Valencia catheter in place, draining yellow urine without visible blood clots Results & Data Results & Data ([facility]) Vital Signs (Past 12 Hours) Vital Signs Temp Pulse Pulse Resp BP BP BP 02/17/21 02:41 101 H 18 83/48 L 02/17/21 01:00 108 H 16 79/54 L 02/16/21 22:45 103 H 14 105/50 L 02/16/21 22:20 102 H 14 105/51 L 02/16/21 22:12 107 H 14 95/57 L 02/16/21 22:05 104 H 14 86/40 L 02/16/21 22:03 104 H 77/37 L 02/16/21 21:30 101 H 17 96/56 L 02/16/21 21:00 101 H 19 110/84 02/16/21 20:45 98 H 17 02/16/21 20:30 100 H 18 96/52 L 02/16/21 20:09 107 H 18 02/16/21 20:00 102 H 18 104/74 02/16/21 19:30 107 H 23 107/88 02/16/21 19:00 111 H 22 97/69 L 02/16/21 18:41 37.4 C 127 H 22 119/93 Pulse Ox 02/17/21 02:41 91 02/17/21 01:00 90 12/27/21 22:45 91 02/16/21 22:20 92 02/16/21 22:12 94 02/16/21 22:05 98 02/16/21 22:03 02/16/21 21:30 94 02/16/21 21:00 94 02/16/21 20:45 95 02/16/21 20:30 94 02/16/21 20:09 98 02/16/21 20:00 98 02/16/21 19:30 97 02/16/21 19:00 93 02/16/21 18:41 95 Supervising Physician Co-Signing Physician Notes Patient seen and examined, chart reviewed, case discussed with Dr. Shaver and I agree with her assessment and plan as above h/o EtOH abuse. Question of IV injection of heroine, methamphetamine prior to arrival. Patient denies. Utox negative. NO clear site for injection noted in groin Combative upon arrival requiring sedation Somnolent during exam Labs and images reviewed Question of IV drug use. Patient with known history of Etoh abuse, withdrawal and DTs -Monitor for withdrawal -Remainder of plan as above Resident Activity Tracking Resident Involvement: Resident Care Provided Care Provided: Adult Hospital Medicine (1) Accidental drug overdose Encounter type: initial encounter Qualified Code(s): T50.901A - Poisoning by unspecified drugs, medicaments and biological substances, accidental (unintentional), initial encounter (2) Alcoholic intoxication Complication of substance-induced condition: uncomplicated Qualified Code(s): F10.920 - Alcohol use, unspecified with intoxication, uncomplicated
[2021-02-17 03:52] LABS: Creatine Kinase 175 U/L (26-192); Troponin I < 0.015 ng/ml (0-0.045)
[2021-02-17] MEDS ORDERED: POLYETHYLENE (MIRALAX) 17 GM PACK PO PRN (07:03)
[2021-02-17] MEDS ORDERED: LACTATED RINGER'S 1,000 ML IV SCH (07:03)
[2021-02-17] MEDS ORDERED: LORazepam 1 MG TAB PO PRN (07:03)
[2021-02-17] MEDS ORDERED: DOCUSATE SODIUM 100 MG CAP PO PRN (07:03)
--- NOTE | 2021-02-17 07:55 | Billing Data ---
Date of Service February 17, 2021 Coding Level of Care Code INT OBSERVATION CARE 50M LVL 2
[2021-02-17 08:17] LABS: D Dimer 600 ug/L FEU (0-500)
[2021-02-17] MEDS: THIAMINE HCL 100 MG TAB PO SCH (09:31)
[2021-02-17] MEDS: FOLIC ACID 1 MG TAB PO SCH (09:31)
--- NOTE | 2021-02-17 11:34 | Pharmacy Report ---
Pharmacy Abx Dose Short Note - Date of Service February 17, 2021 - Assessment & Plan Assessment 36 year old F receiving VANCOMYCIN IV for treatment of possible bacteremia in the setting of IV drug abuse. Patient was admitted for heroin + methamphetamine overdose with EtOH intoxication. No BLCXs have been drawn yet +lactic acidosis, normal WBC Plan Vancomycin * 1750mg (20mg/kg) load x 1 given in ED * 1250mg IV Q 12 hrs is anticipated to achieve a AUC/ERIK of 400-600 with a 9% risk of nephrotoxicity * Will check trough level w/ 4th maint dose if therapy to continue Pharmacy will continue to follow and will adjust dose/frequency as necessary. Thank you.
[2021-02-17 12:31] LABS: Basophils # (auto) 0.03 K/uL (0-0.2); Basophils % (auto) 0.3 %; Eosinophils # (auto) 0.13 K/uL (0-0.5); Eosinophils % (auto) 1.2 %; Hematocrit (blood only) 37.5 % (37-47); Hemoglobin 12.3 g/dL (12.0-16.0); Immature Granulocytes # (auto) 0.02 K/uL (0.00-0.02); Immature Granulocytes % (auto) 0.2 %; Lymphocytes % (auto) 19.4 %; Mean Corpuscular Hgb Conc 32.8 g/dL (32-36); Mean Corpuscular Volume 91.5 fL (80-100); Mean Platelet Volume 8.6 fL (7.4-10.4); Monocytes # (auto) 0.58 K/uL (0.11-0.59); Monocytes % (auto) 5.4 %; Neutrophils # (auto) 7.94 K/uL (1.4-6.5); Neutrophils % (auto) 73.5 %; Platelet Count 426 K/uL (130-400); RDW Standard Deviation 60.1 fL (36.4-46.3)
[2021-02-17] MEDS: VANCOMYCIN HCL 1,250 MG in SODIUM CHLORIDE 0.9% 250 ML IV SCH (12:33)
[2021-02-17 12:59] LABS: BUN Creatinine Ratio 10.5 (10-20); Bilirubin,Total 0.4 mg/dl (0.2-1); Calcium 7.4 mg/dl (8.5-10.1); Creatinine Clr Calc Pharmacy 122.4 ml/min; Est GFR (African American) 128.8 ml/min; Est GFR (Non-African American) 111.1 ml/min; Globulin 3.1 gm/dl (2.5-4.0); Potassium 3.5 mmol/L (3.5-5.1); Total Protein 6.1 gm/dl (6.4-8.2)
--- NOTE | 2021-02-17 17:44 | Electrocardiogram Report ---
Test Reason : Blood Pressure : / mmHG Vent. Rate : 117 BPM Atrial Rate : 117 BPM P-R Int : 132 ms QRS Dur : 076 ms QT Int : 348 ms P-R-T Axes : 071 067 043 degrees QTc Int : 485 ms Sinus tachycardia Otherwise normal ECG When compared with ECG of 01-OCT-2020 17:35, No significant change was found Confirmed by Nazario Chang ([id number]) on 02/17/2021 5:43:48 PM Referred By: REFERRED SELF Confirmed By:Sergio Chang
--- NOTE | 2021-02-17 17:55 | Electrocardiogram Report ---
Test Reason : Blood Pressure : / mmHG Vent. Rate : 095 BPM Atrial Rate : 095 BPM P-R Int : 132 ms QRS Dur : 082 ms QT Int : 394 ms P-R-T Axes : 078 064 040 degrees QTc Int : 495 ms Normal sinus rhythm Prolonged QT Abnormal ECG When compared with ECG of 16-FEB-2021 18:48, (unconfirmed) No significant change was found Confirmed by Nazario Chang ([id number]) on 02/17/2021 5:55:07 PM Referred By: REFERRED SELF Confirmed By:Sergio Chang
[2021-02-17] MEDS ORDERED: OPTIRAY 320 125ml IV ONE (19:53)
[2021-02-17] MEDS ORDERED: ALBUT/IPRATROP 3MG/0.5MG NEB 3 ML VIAL NEB STA (20:16)
--- NOTE | 2021-02-17 20:30 | CT Scan Report ---
CT ANGIOGRAPHY OF THE CHEST, PULMONARY EMBOLUS PROTOCOL CLINICAL HISTORY: Shortness of breath. Evaluate for pulmonary embolus. COMPARISON STUDY: Chest CT October 01, 2020. Chest radiograph February 16, 2021. TECHNIQUE: Following IV administration of 120 mL of Optiray, helical axial images of the chest were o btained utilizing the pulmonary embolus protocol. Maximal intensity projections and sagittal and cor onal reformats were viewed on an independent 3D workstation. IV contrast was administered without co mplication. Automated exposure control was utilized for the study. A dose lowering technique was ut ilized adhering to the principles of ALARA. CT DOSE: 430.58 mGy.cm FINDINGS: No pulmonary emboli are identified. There is no thoracic aortic dissection. Size of the he art is normal. No enlarged thoracic lymph nodes are present. Central airways are patent. No pneumotho rax or pleural effusion is noted. A 7 mm solid lingular nodule on image 156 of 288 is unchanged since initial chest CT of July 21, 2030. Adjacent smaller nodules are also unchanged. There has been interv al development of mild multifocal groundglass opacities within the bilateral upper lobe since chest C T of October 01, 2020. No acute fracture or suspicious lesion is identified within visualized portions of the bony thorax. IMPRESSION: 1. No pulmonary emboli identified. 2. Mild bilateral upper lobe groundglass opacities suggestive of an infectious process. 3. No change in a 7 mm lingular nodule since initial chest CT of July 21, 2020. This remains indetermi elena. Follow-up chest CT in 6 months is recommended to ensure continued stability. ACT 112: Negative or not required by law. Electronically signed by: Randall España M.D. 02/17/2021 8:29 PM
[2021-02-17] MEDS: BUPRENORPHINE/NALOXONE 8/2 MG TAB SL SCH (20:40)
[2021-02-17] MEDS ORDERED: ACETAMINOPHEN 325 MG TAB PO PRN (23:23)
[2021-02-18] MEDS: VANCOMYCIN HCL 1,250 MG in SODIUM CHLORIDE 0.9% 250 ML IV SCH ×2 (01:10→11:40)
[2021-02-18 07:21] LABS: Hematocrit (blood only) 36.4 % (37-47); Hemoglobin 11.9 g/dL (12.0-16.0); Mean Corpuscular Hemoglobin 30.2 pg (25-34); Mean Corpuscular Hgb Conc 32.7 g/dL (32-36); Mean Corpuscular Volume 92.4 fL (80-100); Mean Platelet Volume 8.8 fL (7.4-10.4); Platelet Count 367 K/uL (130-400); RDW Coefficient of Variation 17.5 % (11.5-14.5); RDW Standard Deviation 59.6 fL (36.4-46.3); Red Blood Count 3.94 M/uL (4.2-5.4); White Blood Count 6.78 K/uL (4.8-10.8)
[2021-02-18 07:51] LABS: BUN Creatinine Ratio 10.5 (10-20); Calcium 7.5 mg/dl (8.5-10.1); Creatinine Clr Calc Pharmacy 150.5 ml/min; Est GFR (African American) 138.6 ml/min; Est GFR (Non-African American) 119.6 ml/min; Magnesium 1.4 mg/dl (1.8-2.4); Potassium 2.9 mmol/L (3.5-5.1)
[2021-02-18] MEDS: THIAMINE HCL 100 MG TAB PO SCH (08:59)
[2021-02-18] MEDS: BUPRENORPHINE/NALOXONE 8/2 MG TAB SL SCH (08:59)
[2021-02-18] MEDS ORDERED: BUPRENORPHINE/NALOXONE 8/2 MG TAB SL SCH (09:00)
[2021-02-18] MEDS ORDERED: ALBUT/IPRATROP 3MG/0.5MG NEB 3 ML VIAL NEB PRN (11:11)
--- NOTE | 2021-02-18 11:19 | Electrocardiogram Report ---
Test Reason : Blood Pressure : / mmHG Vent. Rate : 074 BPM Atrial Rate : 074 BPM P-R Int : 140 ms QRS Dur : 082 ms QT Int : 412 ms P-R-T Axes : 100 115 152 degrees QTc Int : 457 ms Suspect arm lead reversal, interpretation assumes no reversal Normal sinus rhythm with sinus arrhythmia Lateral infarct , age undetermined Abnormal ECG When compared with ECG of 17-FEB-2021 12:45, QRS axis Shifted right Lateral infarct is now Present T wave inversion now evident in Lateral leads Confirmed by Nazario Chang ([id number]) on 02/18/2021 11:19:03 AM Referred By: REFERRED SELF Confirmed By:Sergio Chang
[2021-02-18] MEDS ORDERED: FLUTICASONE/VILANTEROL 100/25MCG 14 PUFFS/INHALER INH SCH (11:30)
[2021-02-18] MEDS: FOLIC ACID 1 MG TAB PO SCH (11:39)
--- NOTE | 2021-02-18 17:35 | Discharge Summary ---
Date of Service February 18, 2021 Admission HPI Per Admitting Provider Megan is a 36 yo female with a PMHx of alcohol use disorder and tobacco abuse who was brought to the [facility] ED via EMS for evaluation of drug use/intoxication. Megan's sister apparently called EMS when she witness Megan inject substances into her femoral vein. Megan had allegedly told her sister the injection contained heroin and ICE (methamphetamine). When asked, Megan denied any IV drug use. She denied any intent of self harm / suicide attempt. On arrival to the ED, Megan was altered and violent. She was afebrile, tachycardic to 127, hypotensive (BP 79/54), with a normal RR and O2 sat of 91% on room air. She was given Haldol 10mg and Lorazepam 2mg IV for sedation. She was administered 0.4mg naloxone. Her etoh level was 370. Acetaminophen and salicylate levels not detectable. Her urine drug screen was negative. UA was benign. Urine test negative. COVID 19 neg. WBC and Hgb were normal, platelets increased to 537k/Ul. Glucose was 81. Lactate was 4.4 --> 2.6. AST elevated to 82, ALT normal at 59. Trop pending. CK pending. EKG showing sinus tachycardia, QTc prolongation at 485ms. CXR normal. She was given a dose of vancomycin and 4 liters of NSS. Principal Diagnosis Drug overdose Discharge Exam Constitutional WD/WN, vitals as above Eyes EOM intact bilaterally; no conjunctival abnormality ENMT external ear and nose normal, oropharynx normal Neck trachea midline, no thyromegaly normal visual inspection Respiratory normal respiratory effort, lungs clear to auscultation no respiratory distress Cardiovascular RRR, no murmur, no edema Gastrointestinal (Abdomen) Inspection/Auscultation: abdomen normal to inspection; abdomen not distended Musculoskeletal no cyanosis or clubbing, extremities motor strength 5/5 Skin no rashes, warm and dry Neurologic moves all extremities and awake Psychiatric Orientation: alert, oriented to person and cooperative Discharge Data Allergies Allergy/AdvReac Type Severity Reaction Status Date / Time amoxicillin Allergy Intermediate Hives Verified 02/16/21 19:46 clavulanic acid Allergy Intermediate Hives Verified 02/16/21 19:46 [From Augmentin] Penicillins Allergy Intermediate Hives Verified 02/16/21 19:46 sulfamethoxazole Allergy Intermediate Hives Verified 02/16/21 19:46 [From Septra] trimethoprim [From Septra] Allergy Intermediate Hives Verified 02/16/21 19:46 famotidine [From Pepcid] Allergy Mild Red Skin Unverified 02/16/21 19:46 Splotches Ordered Studies 02/17/21 18:54 CT angio chest PE protocol Stat Hospital Course (1) Accidental drug overdose: Megan is a 36 yo woman brought in for polysubstance overdose. - per report of EMS, patient injected both heroin and methamphetamines - depressed mental status and hypotension are sequelae of heroin overdose. Serum glucose normal. - 4 liters of NSS bloused in ED due to soft blood pressures. Continence maintenance fluids - tachycardia may be reflexive to low BP or due to methamphetamine overdose. D- dimer ordered - if elevated would recommend CTA of chest to rule out PE - 1 dose of vancomycin given in ED for injected drug use and risk of bacteremia - admit to med/tele for continued hemodynamic monitoring - no indication this was a suicide attempt --> hold off on psych consult - Patient metabolized drugs and was in normal mental state on 02/18. She denied drug use, saying she "just had a really bad day." She did point to her negative urine tox as "proof" that she had not done drugs. This was in contradiction to what her sister told EMS per ER and admitting physician reports. Declined any rehab/substance services. Denied any SI/HI. She felt well and requested discharge. Given stability, she was discharged per her wishes. (2) Elevated lactic acid level: - lactate 4.4 on admission --> improved to 2.6 with IV hydration - trend until <2 - Now normal. (3) Alcoholic intoxication: - etoh level 370 on admission - AWSS protocol ordered (4) Elevated AST (SGOT): - AST at 82 on admission - history of etoh use disorder - trend CMP -> Normalized. (5) Thrombocytosis: - platelet count 537 on admission - reactive - trend CBC -> Normalized (6) Prolonged Q-T interval on ECG: - QTc noted to be 485ms - avoid QTc prolonging agents - repeat EKG in am -> Normalized. Total Time Total Time Spent Total Time Spent (In Minutes): 35 Discharge Plan Discharge Items Patient Disposition: Home - Self-Care Reason For Visit: POLYSUBSTANCE OVERDOSE Discharge Diagnosis: Altered mental status Activity: Resume your previous activity Non-emergency contact: Primary Care Provider Call non-emergency contact if: your symptoms worsen Follow-up/Referrals: PCP,NO [Primary Care Provider] - Diet: Regular Addtl Attending Provider Instructions: You were in the hospital for altered mental status that sounds like you overdosed. Your sister told EMS that you had. Your drug screen was negative however. You did not want any further drug resources. Please do not use any drugs and follow up with your outpatient providers. Pending Studies at Discharge: No Stand-Alone Forms: My [facility] DIY, Smoking Cessation Medications and DC Order Prescriptions: Continued docusate sodium [Colace] 100 mg capsule 100 mg PO BID PRN (Reason: Constipation) RF: 0 buprenorphine-naloxone 8-2 mg film 2 film sublingual DAILY RF: 0 thiamine HCl (vitamin B1) [Vitamin B-1] 100 mg Tablet 100 mg PO QAM Qty: 30 RF: 0 folic acid 1 mg Tablet 1 mg PO QAM Qty: 30 RF: 0 Discharge Orders: Discharge Order (Routine); Ordered 02/18/21 Ordered By: Jam Coburn Admission Data Admit Date/Time: 02/17/21 03:46 Attending Provider: Jam Coburn Admit Provider: Misty Shaver Primary Care Provider: PCP,NO Other Interventions: Discharge Summary Assessment (RN) Last Done: 02/18/21 13:09 Coding Level of Care Code 72128 OBS Care - Discharge Diagnoses Accidental drug overdose T50.901A Encounter type: initial encounter Elevated lactic acid level R79.89 Alcoholic intoxication F10.920 Complication of substance-induced condition: uncomplicated Elevated AST (SGOT) R74.01 Thrombocytosis D75.839 Prolonged Q-T interval on ECG R94.31
[2021-02-18] MEDS ORDERED: VANCOMYCIN TROUGH SCH (23:30)
[2021-02-23 11:05] LABS: Quantiferon Mitogen-NIL 8.65 IU/mL; Quantiferon NIL 0.03 IU/mL; Quantiferon TB Gold Plus NEGATIVE (NEGATIVE); Quantiferon TB1-NIL 0.03 IU/mL; Quantiferon TB2-NIL 0.03 IU/mL
== END 2021-02-18 14:10 | disposition home or self-care (01) ==
LOC: EDINP 18:21 → ED 18:21 → SUATTDRO 02-17 03:46 → 2N 02-17 07:01

== ENCOUNTER 2021-03-23 13:39 | Inpatient (IN) ==
[2021-03-23] MEDS ORDERED: LORazepam 2 MG/4 ML VIAL IV STA (14:18)
[2021-03-23] MEDS ORDERED: MULTI-VITAMIN INFUSION 10 ML, THIAMINE HCL 100 MG, FOLIC ACID 1 MG in SODIUM CHLORIDE 0... IV ONE (14:18)
[2021-03-23] MEDS ORDERED: SODIUM CHLORIDE 0.9% 1000ML 500 ML IV ONE (14:18)
[2021-03-23] MEDS ORDERED: chlordiazePOXIDE HCl 25 MG CAP PO ONE (14:18)
--- NOTE | 2021-03-23 14:24 | Emergency Department Note ---
Impression & Plan Seizure, Alcohol withdrawal, Alcohol abuse, Hypophosphatemia ED Provider Note NAME: MIRACLE MALAGON AGE: 36 SEX: F : 1985 ARRIVES VIA: Ambulance INFORMANT: [Patient][nurses] ED PROVIDER(S): [Zach Zelaya MD] CHIEF COMPLAINT: Seizure HISTORY OF PRESENT ILLNESS: The patient is a 36-year-old female with an alcohol abuse history. She was in our ED 2 days ago for an alcohol overdose. She was discharged home. She is trying to quit alcohol. The patient states that this morning, she had about a pint of fireball whiskey. She was on a video call with her sister and as per the sisters report, the patient had a seizure. The patient did lose urinary continence. No tongue bite. Patient now feels back to baseline. She does not remember the event. The patient has a history of seizures from alcohol withdrawal. She feels that she is starting to go into withdrawal again now. There has been no cough or cold or congestion. She denies drug use. She was in our facility about a month ago for a polysubstance overdose. The overdose was accidental. REVIEW OF SYSTEMS: See HPI for pertinent positives and negatives. A total of ten systems were reviewed and were otherwise negative. PMHx/PSHx: See Below SOCIAL HISTORY: See Below. PHYSICAL EXAM: GENERAL: Patient is in no acute distress. Slightly anxious. HEENT: No acute trauma, normocephalic atraumatic, mucous membranes moist, no nasal congestion, no scleral icterus. NECK: No stridor, no adenopathy, no meningismus, trachea is midline. LUNGS: Clear to auscultation bilaterally, no wheeze, no rhonchi, breath sounds equal. HEART: Mildly tachycardic, regular rhythm, no murmurs. ABDOMEN: Soft, nontender, bowel sounds positive, no hernias, no peritonitis. EXTREMITIES: No cyanosis or edema, full range of motion of all the joints without pain or difficulty, no signs for acute trauma. NEUROLOGIC: Oriented x 3, no acute motor or sensory deficits, no focal weakness. SKIN: No rash, no jaundice, no diaphoresis. Psychiatric: Cooperative, voluntary, admits to alcohol abuse. Not suicidal. DIFFERENTIAL DIAGNOSIS: Infection, dehydration, metabolic abnormality, hypo/hyperglycemia, electrolyte disturbance, anemia, hypoxia, cardiac sources, intracerebral event, toxicologic issues, stroke, TIA, alcohol withdrawal, alcohol abuse, as well as other pathologies. EMERGENCY DEPARTMENT COURSE/PROCEDURES: ECG: Indication was seizure. The ECG shows a sinus tachycardia with a rate of 101. There is no ST elevation, no PVCs. The QTc is 464. Continuous Cardiac Monitoring: An order was placed for continuous cardiac monitoring. The monitor shows a rate of 108 with sinus tachycardia. Critical Care Note: I have personally spent 51 minutes of critical care time in the direct management of this patient. This includes bedside care, interpretation of diagnostic studies, and testing, discussion with consultants, patient, and family members, and other required patient management activities. This 51 minutes is in excess of all separately billable procedures. MEDICAL DECISION MAKING: There is no leukocytosis or concerning anemia. There is a normal platelet count. Potassium was a bit low at 3.3. No renal failure. Phosphorus was quite low at 1.4. No liver enzyme elevation. The patient appeared to be in a euthyroid state. testing returned negative. Alcohol level was elevated at 260. Covid testing returned negative. Urinalysis and urine tox are pending. The patient presents after a seizure. She had lost urinary continence. She likely had a seizure from her alcohol withdrawal. The patient was given IV Ativan, oral Librium, IV saline. She received IV saline with multivitamins, thiamine and folate. She received IV phosphorus. The patient is in need of a hospital stay for her findings. I did speak with the patient, she is aware of the need for hospitalization, she is willing to stay for help with her withdrawal. I did speak with case management. The on- call hospitalist was consulted. Past Med/Surg History Medical History Alcohol intoxication Impending delirium tremens Kidney stone Pulmonary nodule seen on imaging study Tobacco use disorder Surgical History No significant past surgical history Social History Smoking Status: Current every day smoker Tobacco Type: Cigarettes Cigarettes Per Day: 3; Second Hand Exposure: Yes; Hx Alcohol Use: Yes Alcohol type: hard liquor Hx Substance Use: Yes Preferred Language: Iraqi Communication Ability: Effective Research Professional Required: No Beliefs That Will Affect Care: None Current Living Situation: Family Current Living Situation Comment: mom and friend Feels Safe at Home: Yes Assistive Devices: None Allergies Allergies Allergy/AdvReac Type Severity Reaction Status Date / Time amoxicillin Allergy Intermediate Hives Verified 03/22/21 19:38 clavulanic acid Allergy Intermediate Hives Verified 03/22/21 19:38 [From Augmentin] Penicillins Allergy Intermediate Hives Verified 03/22/21 19:38 sulfamethoxazole Allergy Intermediate Hives Verified 03/22/21 19:38 [From Septra] trimethoprim [From Septra] Allergy Intermediate Hives Verified 03/22/21 19:38 famotidine [From Pepcid] Allergy Mild Red Skin Unverified 03/22/21 19:38 Splotches Home Meds Home Medications Medication Instructions Recorded Confirmed docusate sodium 100 mg capsule 100 mg PO BID PRN 08/19/20 03/22/21 (Colace) buprenorphine 8 mg-naloxone 2 mg 2 film SUBLINGUAL DAILY 02/16/21 03/22/21 sublingual film Previous Rx's Medication Instructions Recorded folic acid 1 mg tablet 1 mg PO QAM #30 tab 10/05/20 thiamine HCl (vitamin B1) 100 mg 100 mg PO QAM #30 tab 10/05/20 tablet (Vitamin B-1) Results & Data (ED) Vital Signs Vital Signs - 24 hr 03/23/21 13:45 03/23/21 14:04 Temperature 36.7 C Temperature Source Oral Pulse Rate 105 H Pulse Rate [Apical] 108 H Pulse Rhythm Regular Pulse Strength Normal Respiratory Rate 17 16 Respiratory Effort / Characteristics Non-Labored Spontaneous Respiratory Depth Normal Blood Pressure 120/76 Blood Pressure Mean 90 Blood Pressure Position Lying Pulse Oximetry 97 95 Oxygen Delivery Method Room Air Sepsis Recent Fever Within 48 Hours No Sepsis New/Unexplained Change in Mental Status N/A Sepsis Action Taken by Nursing No Action Required Home Medications Current Medication List: was personally reviewed by me Laboratory Data Attestation: I reviewed the patient's lab results. Result diagrams: 03/23/21 14:05 03/23/21 14:28 Lab Results 03/23/21 03/23/21 03/23/21 Range/Units 14:05 14:05 14:05 WBC 9.17 (4.8-10.8) K/uL RBC 4.37 (4.2-5.4) M/uL Hgb 13.9 (12.0-16.0) g/dL Hct 41.8 (37-47) % MCV 95.7 (80-100) fL MCH 31.8 (25-34) pg MCHC 33.3 (32-36) g/dL RDW Std Deviation 56.8 H (36.4-46.3) fL RDW Coeff of Yulissa 16.1 H (11.5-14.5) % Plt Count 381 (130-400) K/uL MPV 9.4 (7.4-10.4) fL Immature Gran % (Auto) 0.1 % Neut % (Auto) 60.3 % Lymph % (Auto) 26.2 % Thayer % (Auto) 11.1 % Eos % (Auto) 1.9 % Baso % (Auto) 0.4 % Neut # (Auto) 5.53 (1.4-6.5) K/uL Lymph # (Auto) 2.40 (1.2-3.4) K/uL Thayer # (Auto) 1.02 H (0.11-0.59) K/uL Eos # (Auto) 0.17 (0-0.5) K/uL Baso # (Auto) 0.04 (0-0.2) K/uL Immature Gran # (Auto) 0.01 (0.00-0.02) K/uL Sodium 138 (136-145) mmol/L Potassium (3.5-5.1) mmol/L Chloride 105 (98-107) mmol/L Carbon Dioxide 21 (21-32) mmol/L Anion Gap 12 H (3-11) BUN 8 (6-23) mg/dl Creatinine 0.66 (0.6-1.2) mg/dl Est Cr Clr Drug Dosing 132.2 ml/min Est GFR ( Amer) 133.6 ml/min Est GFR (Non-Af Amer) 115.3 ml/min BUN/Creatinine Ratio 12.1 (10-20) Glucose 135 H (70-99(Fasting)) mg/dl Calcium 8.1 L (8.5-10.1) mg/dl Phosphorus 1.4 L* (2.5-4.9) mg/dl Magnesium 1.7 (1.7-2.4) mg/dl Total Bilirubin 0.4 (0.2-1.0) mg/dl AST (13-39) U/L ALT 21 (7-52) U/L Alkaline Phosphatase 68 (34-104) U/L Total Protein 6.8 (6.0-8.3) gm/dl Albumin 4.1 (3.4-5.0) gm/dl Globulin 2.7 (2.5-4.0) gm/dl Albumin/Globulin Ratio 1.5 (0.9-2) TSH 0.369 (0.300-4.500) uIu/ml HCG, Qual (Negative) Ethyl Alcohol mg/dL (<10.0) mg/dl SARS-CoV-2, RNA, NAAT (NEGATIVE) 03/23/21 03/23/21 03/23/21 Range/Units 14:05 14:05 14:28 WBC (4.8-10.8) K/uL RBC (4.2-5.4) M/uL Hgb (12.0-16.0) g/dL Hct (37-47) % MCV (80-100) fL MCH (25-34) pg MCHC (32-36) g/dL RDW Std Deviation (36.4-46.3) fL RDW Coeff of Yulissa (11.5-14.5) % Plt Count (130-400) K/uL MPV (7.4-10.4) fL Immature Gran % (Auto) % Neut % (Auto) % Lymph % (Auto) % Thayer % (Auto) % Eos % (Auto) % Baso % (Auto) % Neut # (Auto) (1.4-6.5) K/uL Lymph # (Auto) (1.2-3.4) K/uL Thayer # (Auto) (0.11-0.59) K/uL Eos # (Auto) (0-0.5) K/uL Baso # (Auto) (0-0.2) K/uL Immature Gran # (Auto) (0.00-0.02) K/uL Sodium (136-145) mmol/L Potassium (3.5-5.1) mmol/L Chloride (98-107) mmol/L Carbon Dioxide (21-32) mmol/L Anion Gap (3-11) BUN (6-23) mg/dl Creatinine (0.6-1.2) mg/dl Est Cr Clr Drug Dosing ml/min Est GFR ( Amer) ml/min Est GFR (Non-Af Amer) ml/min BUN/Creatinine Ratio (10-20) Glucose (70-99(Fasting)) mg/dl Calcium (8.5-10.1) mg/dl Phosphorus (2.5-4.9) mg/dl Magnesium (1.7-2.4) mg/dl Total Bilirubin (0.2-1.0) mg/dl AST (13-39) U/L ALT (7-52) U/L Alkaline Phosphatase (34-104) U/L Total Protein (6.0-8.3) gm/dl Albumin (3.4-5.0) gm/dl Globulin (2.5-4.0) gm/dl Albumin/Globulin Ratio (0.9-2) TSH (0.300-4.500) uIu/ml HCG, Qual Negative (Negative) Ethyl Alcohol mg/dL 260.3 H (<10.0) mg/dl SARS-CoV-2, RNA, NAAT NEGATIVE (NEGATIVE) 03/23/21 Range/Units 14:28 WBC (4.8-10.8) K/uL RBC (4.2-5.4) M/uL Hgb (12.0-16.0) g/dL Hct (37-47) % MCV (80-100) fL MCH (25-34) pg MCHC (32-36) g/dL RDW Std Deviation (36.4-46.3) fL RDW Coeff of Yulissa (11.5-14.5) % Plt Count (130-400) K/uL MPV (7.4-10.4) fL Immature Gran % (Auto) % Neut % (Auto) % Lymph % (Auto) % Thayer % (Auto) % Eos % (Auto) % Baso % (Auto) % Neut # (Auto) (1.4-6.5) K/uL Lymph # (Auto) (1.2-3.4) K/uL Thayer # (Auto) (0.11-0.59) K/uL Eos # (Auto) (0-0.5) K/uL Baso # (Auto) (0-0.2) K/uL Immature Gran # (Auto) (0.00-0.02) K/uL Sodium (136-145) mmol/L Potassium 3.3 L (3.5-5.1) mmol/L Chloride (98-107) mmol/L Carbon Dioxide (21-32) mmol/L Anion Gap (3-11) BUN (6-23) mg/dl Creatinine (0.6-1.2) mg/dl Est Cr Clr Drug Dosing ml/min Est GFR ( Amer) ml/min Est GFR (Non-Af Amer) ml/min BUN/Creatinine Ratio (10-20) Glucose (70-99(Fasting)) mg/dl Calcium (8.5-10.1) mg/dl Phosphorus (2.5-4.9) mg/dl Magnesium (1.7-2.4) mg/dl Total Bilirubin (0.2-1.0) mg/dl AST 19 (13-39) U/L ALT (7-52) U/L Alkaline Phosphatase (34-104) U/L Total Protein (6.0-8.3) gm/dl Albumin (3.4-5.0) gm/dl Globulin (2.5-4.0) gm/dl Albumin/Globulin Ratio (0.9-2) TSH (0.300-4.500) uIu/ml HCG, Qual (Negative) Ethyl Alcohol mg/dL (<10.0) mg/dl SARS-CoV-2, RNA, NAAT (NEGATIVE) Administered Medications Discontinued Medications Chlordiazepoxide HCl (Chlordiazepoxide Hcl 25 Mg Cap) 25 mg PO NOW ONE Stop: 03/23/21 14:19 Last Admin: 03/23/21 15:12 Dose: 25 mg Documented by: [id number] Lorazepam (Ativan) 2 mg in 4 mls @ 4 mls/min IV NOW STA Stop: 03/23/21 14:19 Last Admin: 03/23/21 15:12 Dose: 4 mls/min Documented by: [id number] Sodium Chloride (Nss 1000ml) 500 mls @ 999 mls/hr IV .Q31M ONE Stop: 03/23/21 14:48 Last Admin: 03/23/21 15:12 Dose: 999 mls/hr Documented by: [id number] Multivitamins 10 ml/ Thiamine HCl 100 mg/ Folic Acid 1 mg/Sodium Chloride 1,011.2 mls @ 1,011.2 mls/hr IV .Q1H ONE Stop: 03/23/21 15:17 Last Admin: 03/23/21 15:12 Dose: 1,011.2 mls/hr Documented by: [id number] Discharge Plan Visit Data Chief Complaint: Seizure ED Provider: Zach Zelaya Discharge Problem: Seizure, Alcohol withdrawal, Alcohol abuse, Hypophosphatemia Patient Disposition: Admitted As Inpatient Condition: Fair Forms Stand Alone Forms: [facility] Prescriptions Prescriptions: No Action docusate sodium [Colace] 100 mg capsule 100 mg PO BID PRN (Reason: Constipation) RF: 0 buprenorphine-naloxone 8-2 mg film 2 film sublingual DAILY RF: 0 thiamine HCl (vitamin B1) [Vitamin B-1] 100 mg Tablet 100 mg PO QAM Qty: 30 RF: 0 folic acid 1 mg Tablet 1 mg PO QAM Qty: 30 RF: 0 Referrals Referrals: PCP,NO [Primary Care Provider] -
[2021-03-23 14:32] LABS: Basophils # (auto) 0.04 K/uL (0-0.2); Basophils % (auto) 0.4 %; Eosinophils # (auto) 0.17 K/uL (0-0.5); Eosinophils % (auto) 1.9 %; Hematocrit (blood only) 41.8 % (37-47); Hemoglobin 13.9 g/dL (12.0-16.0); Immature Granulocytes # (auto) 0.01 K/uL (0.00-0.02); Immature Granulocytes % (auto) 0.1 %; Lymphocytes % (auto) 26.2 %; Mean Corpuscular Hemoglobin 31.8 pg (25-34); Mean Corpuscular Hgb Conc 33.3 g/dL (32-36); Mean Corpuscular Volume 95.7 fL (80-100); Mean Platelet Volume 9.4 fL (7.4-10.4); Monocytes # (auto) 1.02 K/uL (0.11-0.59); Monocytes % (auto) 11.1 %; Neutrophils # (auto) 5.53 K/uL (1.4-6.5); Neutrophils % (auto) 60.3 %; Platelet Count 381 K/uL (130-400); RDW Coefficient of Variation 16.1 % (11.5-14.5); RDW Standard Deviation 56.8 fL (36.4-46.3); Red Blood Count 4.37 M/uL (4.2-5.4); White Blood Count 9.17 K/uL (4.8-10.8)
[2021-03-23 15:05] LABS: Albumin Globulin Ratio 1.5 (0.9-2); Albumin Level 4.1 gm/dl (3.4-5.0); BUN Creatinine Ratio 12.1 (10-20); Bilirubin,Total 0.4 mg/dl (0.2-1.0); Calcium 8.1 mg/dl (8.5-10.1); Creatinine Clr Calc Pharmacy 132.2 ml/min; Est GFR (African American) 133.6 ml/min; Est GFR (Non-African American) 115.3 ml/min; Globulin 2.7 gm/dl (2.5-4.0); Magnesium 1.7 mg/dl (1.7-2.4); Phosphorus 1.4 mg/dl (2.5-4.9); Total Protein 6.8 gm/dl (6.0-8.3)
[2021-03-23 15:09] LABS: Pregnancy Test, Serum Negative (Negative)
[2021-03-23] MEDS ORDERED: SODIUM PHOSPHATE 3 MMOL/1 ML INFUSION IV STA (15:10)
[2021-03-23] MEDS ORDERED: SODIUM PHOSPHATE 15 MMOL in DEXTROSE 5% 250 ML IV ONE (15:15)
[2021-03-23 15:25] LABS: Potassium 3.3 mmol/L (3.5-5.1)
--- NOTE | 2021-03-23 15:41 | Electrocardiogram Report ---
Test Reason : Blood Pressure : / mmHG Vent. Rate : 101 BPM Atrial Rate : 101 BPM P-R Int : 142 ms QRS Dur : 082 ms QT Int : 358 ms P-R-T Axes : 075 067 020 degrees QTc Int : 464 ms Sinus tachycardia Otherwise normal ECG When compared with ECG of 22-MAR-2021 18:54, No significant change was found Confirmed by Carlitos Olsen ([id number]) on 03/23/2021 3:40:31 PM Referred By: REFERRED SELF Confirmed By:Carlitos Olsen
--- NOTE | 2021-03-23 16:29 | History & Physical Report ---
Date of Service March 23, 2021 Assessment & Plan (1) Seizure: (2) Alcohol withdrawal: Plan: Questioning whether patient has previous seizure disorder but I do suspect the patient is having seizures secondary to alcohol withdrawal Will admit to PCU bed. Order CIWA scale with IV Ativan Will put on [id number] Librium Await UDS Oral folate and thiamine repletion Consider psychiatric consultation. Will need case management to evaluate for potential inpatient versus outpatient drug and alcohol rehab We will ask neurology to evaluate further recommendations, question of whether his underlying seizure disorder and if antiepileptics are indicated (3) Hypophosphatemia: Plan: IV Na-Phos x1 ordered in ER We will add Neutra-Phos to patient's meals Replete magnesium and potassium as well History of Present Illness Chief Complaint: "seizures" Primary Care Provider: NO PCP This is a 36-year-old female with past medical history of chronic alcoholism that presents today with a chief complaint of multiple seizures. Patient was seen in her room, she is awake but is not providing much history. Therefore, buccal history of per ER documentation. ER physician tells me that the patient was on a Zoom phone call with her sister earlier today. Patient had multiple seizures as witnessed by the sister. She became incontinent of urine. She did not fall per patient. Patient had no tongue trauma. She has no recollection of any events and I was not able to get any firsthand history out of her. Of note, she was in the ER on 03/22 after she had multiple seizures. She had apparently been prescribed Depakote but did not been taking his medication secondary to insurance concerns. I do also see a previous admission about 1 month ago with the patient had possibly injected some sort of drugs into her diet as witnessed by the sister. I do see a UDS was ordered in the ER today but is not yet been collected. The time my arrival, the patient of the lights off. She did mother some answers to me but there were only 1 word answers and admittedly to had no recollection of events. Before I left, she asked me for more benzodiazepines for the shaking before falling back asleep. Allergies Allergy/AdvReac Type Severity Reaction Status Date / Time amoxicillin Allergy Intermediate Hives Verified 03/22/21 19:38 clavulanic acid Allergy Intermediate Hives Verified 03/22/21 19:38 [From Augmentin] Penicillins Allergy Intermediate Hives Verified 03/22/21 19:38 sulfamethoxazole Allergy Intermediate Hives Verified 03/22/21 19:38 [From Septra] trimethoprim [From Septra] Allergy Intermediate Hives Verified 03/22/21 19:38 famotidine [From Pepcid] Allergy Mild Red Skin Unverified 03/22/21 19:38 Splotches Home Medications Medication Instructions Recorded Confirmed Type docusate sodium 100 mg capsule 100 mg PO BID PRN 08/19/20 03/22/21 History (Colace) folic acid 1 mg tablet 1 mg PO QAM #30 tab 10/05/20 03/22/21 Rx thiamine HCl (vitamin B1) 100 mg 100 mg PO QAM #30 tab 10/05/20 03/22/21 Rx tablet (Vitamin B-1) buprenorphine 8 mg-naloxone 2 mg 2 film SUBLINGUAL DAILY 02/16/21 03/22/21 History sublingual film Past Med/Surg History Medical History Alcohol intoxication Impending delirium tremens Kidney stone Pulmonary nodule seen on imaging study Tobacco use disorder Surgical History No significant past surgical history Social History Smoking Status: Current every day smoker Tobacco Type: Cigarettes Cigarettes Per Day: 3; Second Hand Exposure: Yes; Hx Alcohol Use: Yes Alcohol type: hard liquor Hx Substance Use: Yes Preferred Language: Serbian Communication Ability: Effective 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 Nurse 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: No Beliefs That Will Affect Care: None Current Living Situation: Family Current Living Situation Comment: mom and friend Feels Safe at Home: Yes Assistive Devices: None Review of Systems Review of Systems: Patient was unable to provide me with an accurate review of systems Physical Exam Constitutional: + lethargic; no acute distress Neck: trachea midline, no thyromegaly Respiratory: normal respiratory effort Auscultation: lungs clear to auscultation bilaterally; no crackles, no rales, no rhonchi and no wheezes Cardiovascular: Rate/Rhythm: regular rate and regular rhythm Heart Sounds: normal S1 and normal S2 Gastrointestinal (Abdomen): Inspection/Auscultation: abdomen normal to inspection Percussion/Palpation: abdomen soft; abdomen nontender, no guarding, abdomen not rigid and no hepatosplenomegaly Skin: no rashes, warm and dry Results & Data Results & Data ([facility]) Vital Signs (Past 12 Hours) Vital Signs Temp Pulse Pulse Resp BP Pulse Ox 03/23/21 14:04 108 H 16 95 03/23/21 13:45 36.7 C 105 H 17 120/76 97 Laboratory Results Laboratory Results WBC 9.17 K/uL (4.8-10.8) 03/23/21 14:05 RBC 4.37 M/uL (4.2-5.4) 03/23/21 14:05 Hgb 13.9 g/dL (12.0-16.0) 03/23/21 14:05 Hct 41.8 % (37-47) 03/23/21 14:05 MCV 95.7 fL (80-100) 03/23/21 14:05 MCH 31.8 pg (25-34) 03/23/21 14:05 MCHC 33.3 g/dL (32-36) 03/23/21 14:05 RDW Std Deviation 56.8 fL (36.4-46.3) H 03/23/21 14:05 RDW Coeff of Yulissa 16.1 % (11.5-14.5) H 03/23/21 14:05 Plt Count 381 K/uL (130-400) 03/23/21 14:05 MPV 9.4 fL (7.4-10.4) 03/23/21 14:05 Immature Gran % (Auto) 0.1 % 03/23/21 14:05 Neut % (Auto) 60.3 % 03/23/21 14:05 Lymph % (Auto) 26.2 % 03/23/21 14:05 Owsley % (Auto) 11.1 % 03/23/21 14:05 Eos % (Auto) 1.9 % 03/23/21 14:05 Baso % (Auto) 0.4 % 03/23/21 14:05 Neut # (Auto) 5.53 K/uL (1.4-6.5) 03/23/21 14:05 Lymph # (Auto) 2.40 K/uL (1.2-3.4) 03/23/21 14:05 Owsley # (Auto) 1.02 K/uL (0.11-0.59) H 03/23/21 14:05 Eos # (Auto) 0.17 K/uL (0-0.5) 03/23/21 14:05 Baso # (Auto) 0.04 K/uL (0-0.2) 03/23/21 14:05 Immature Gran # (Auto) 0.01 K/uL (0.00-0.02) 03/23/21 14:05 Sodium 138 mmol/L (136-145) 03/23/21 14:05 Potassium 3.3 mmol/L (3.5-5.1) L 03/23/21 14:28 Chloride 105 mmol/L (98-107) 03/23/21 14:05 Carbon Dioxide 21 mmol/L (21-32) 03/23/21 14:05 Anion Gap 12 (3-11) H 03/23/21 14:05 BUN 8 mg/dl (6-23) 03/23/21 14:05 Creatinine 0.66 mg/dl (0.6-1.2) 03/23/21 14:05 Est Cr Clr Drug Dosing 132.2 ml/min 03/23/21 14:05 Est GFR ( Amer) 133.6 ml/min 03/23/21 14:05 Est GFR (Non-Af Amer) 115.3 ml/min 03/23/21 14:05 BUN/Creatinine Ratio 12.1 (10-20) 03/23/21 14:05 Glucose 135 mg/dl (70-99(Fasting)) H 03/23/21 14:05 Calcium 8.1 mg/dl (8.5-10.1) L 03/23/21 14:05 Phosphorus 1.4 mg/dl (2.5-4.9) L* 03/23/21 14:05 Magnesium 1.7 mg/dl (1.7-2.4) 03/23/21 14:05 Total Bilirubin 0.4 mg/dl (0.2-1.0) 03/23/21 14:05 AST 19 U/L (13-39) 03/23/21 14:28 ALT 21 U/L (7-52) 03/23/21 14:05 Alkaline Phosphatase 68 U/L (34-104) 03/23/21 14:05 Total Protein 6.8 gm/dl (6.0-8.3) 03/23/21 14:05 Albumin 4.1 gm/dl (3.4-5.0) 03/23/21 14:05 Globulin 2.7 gm/dl (2.5-4.0) 03/23/21 14:05 Albumin/Globulin Ratio 1.5 (0.9-2) 03/23/21 14:05 TSH 0.369 uIu/ml (0.300-4.500) 03/23/21 14:05 HCG, Qual Negative (Negative) 03/23/21 14:05 Ethyl Alcohol mg/dL 260.3 mg/dl (<10.0) H 03/23/21 14:28 SARS-CoV-2, RNA, NAAT NEGATIVE (NEGATIVE) 03/23/21 14:05 PG Care Time/CCT Total # of Minutes Spent Total Time Spent with Patient: Total time spent is greater than 50% in coordination of care (as documented) at patient's floor/unit and/or counseling patient: Coding Level of Care Code 38572 Initial Inpt Care Lvl 3 Diagnoses Alcohol withdrawal F10.239 Complication of substance-induced condition: with unspecified complication Hypophosphatemia E83.39 Seizure R56.9 (1) Alcohol withdrawal Complication of substance-induced condition: with unspecified complication Qualified Code(s): F10.239 - Alcohol dependence with withdrawal, unspecified
[2021-03-23] MEDS ORDERED: chlordiazePOXIDE ALCOHOL WITHDRAWL 50MG PO STA (16:36)
[2021-03-23] MEDS ORDERED: ATIVAN IV ALCOHOL WITHDRAWL IV PRN (19:42)
[2021-03-23] MEDS ORDERED: chlordiazePOXIDE HCl 25 MG CAP PO SCH (19:42)
[2021-03-23] MEDS ORDERED: ONDANSETRON INJ 2 MG/ML 2 ML VIAL IV PRN (19:42)
[2021-03-23] MEDS: CHLORDIAZEPOXIDE 50MG STARTING DOSE PO SCH (20:24)
[2021-03-23] MEDS: ACETAMINOPHEN 325 MG TAB PO PRN (21:00)
[2021-03-23] MEDS: POT PHOSPHATE MONOBASIC W/ SOD TAB PO SCH ×2 (21:00→23:56)
[2021-03-23] MEDS: SODIUM CHLORIDE 0.9% 1000ML 1,000 ML IV SCH (21:05)
[2021-03-23] MEDS ORDERED: KETOROLAC TROMETHAMINE 15 MG/ML VIAL IV ONE (22:21)
[2021-03-24] MEDS: CHLORDIAZEPOXIDE 50MG STARTING DOSE PO SCH ×3 (02:34→13:44)
[2021-03-24 03:15] LABS: Appearance Urine Clear (Clear); Bilirubin Urine Negative (Negative); Blood Urine Negative (Negative); Color Urine Yellow; Glucose Urine UA Negative (Negative); Ketones Urine Negative (Negative); Leukocyte Esterase Urine Negative (Negative); Nitrite Urine Negative (Negative); Protein Urine Negative (Negative); Specific Gravity Urine 1.019 (1.000-1.030); Urobilinogen Urine Negative (Negative); pH Urine 6.5 (4.5-7.5)
[2021-03-24 04:39] LABS: Amphetamines+Metham, Urine Neg (Neg); Barbiturates, Urine Neg (Neg); Cocaine, Urine Neg (Neg); MDMA (Ecstacy), Urine Neg (Neg); Methadone, Urine Neg (Neg); Opiate, Urine Neg (Neg); Phencyclidine, Urine Neg (Neg)
[2021-03-24 04:47] LABS: Benzodiazepine, Urine Neg (Neg)
[2021-03-24 06:27] LABS: Basophils # (auto) 0.05 K/uL (0-0.2); Basophils % (auto) 0.9 %; Eosinophils # (auto) 0.44 K/uL (0-0.5); Eosinophils % (auto) 7.7 %; Hematocrit (blood only) 36.3 % (37-47); Hemoglobin 12.1 g/dL (12.0-16.0); Immature Granulocytes # (auto) 0.01 K/uL (0.00-0.02); Immature Granulocytes % (auto) 0.2 %; Lymphocytes % (auto) 47.5 %; Mean Corpuscular Hemoglobin 31.1 pg (25-34); Mean Corpuscular Hgb Conc 33.3 g/dL (32-36); Mean Corpuscular Volume 93.3 fL (80-100); Monocytes # (auto) 0.75 K/uL (0.11-0.59); Monocytes % (auto) 13.2 %; Neutrophils # (auto) 1.73 K/uL (1.4-6.5); Neutrophils % (auto) 30.5 %; Platelet Count 296 K/uL (130-400); RDW Coefficient of Variation 15.4 % (11.5-14.5); RDW Standard Deviation 53.4 fL (36.4-46.3); Red Blood Count 3.89 M/uL (4.2-5.4); White Blood Count 5.68 K/uL (4.8-10.8)
[2021-03-24 06:51] LABS: RBC Morphology Unremarkable
[2021-03-24 06:53] LABS: Albumin Globulin Ratio 1.6 (0.9-2); Albumin Level 3.3 gm/dl (3.4-5.0); BUN Creatinine Ratio 17.6 (10-20); Bilirubin,Total 0.7 mg/dl (0.2-1.0); Calcium 6.9 mg/dl (8.5-10.1); Creatinine Clr Calc Pharmacy 127.3 ml/min; Est GFR (African American) 132.3 ml/min; Est GFR (Non-African American) 114.1 ml/min; Globulin 2.1 gm/dl (2.5-4.0); Magnesium 1.3 mg/dl (1.7-2.4); Potassium 3.2 mmol/L (3.5-5.1); Total Protein 5.4 gm/dl (6.0-8.3)
--- NOTE | 2021-03-24 07:33 | Hospitalist Progress Note ---
Date of Service March 24, 2021 Assessment & Plan (1) Alcohol withdrawal: Plan: 36yo female with a history of alcohol use disorder, alcohol withdrawal, and alcohol withdrawal seizures presents with seizure-like activity in the setting of alcohol withdrawal. Seizure-like activity, alcohol withdrawal Likely secondary to alcohol withdrawal; low suspicion for underlying seizure disorder though not entirely excluded Continue AWSS with ativan and librium Will obtain MRI brain to assess for any chronic degeneration Epileptics not indicated at this time in the absence of evidence of underlying seizure disorder Continue folate and thiamine Continue NSS @ 80mL/hr Abdominal pain Likely due to alcohol gastritis Continue supportive care, serial exams FEN: regular diet, NSS @ 80mL/hr Code status: full code DVT ppx: lovenox Case management: following Dispo: PCU telemetry Admission and Anticipated Discharge Date Admission Date: March 23, 2021 Supervising Physician Co-Signing Physician Notes I personally examined the patient and verified all dow points of history and exam, discussed case, and agree with decision making with Dr Morton Notes that she is feeling better than beforebetter than when she came in. No further seizure activity, feels shaky in general, but no convulsions. Still has belly pain but was able to eat some lunch. In general she is awake and alert oriented x3 although still fairly sedated is asleep when I first enter the room is easily awoken does not really open eyes make eye contact or move much. No distress. HEENT normocephalic atraumatic mucous membranes moist. Breathing unlabored no accessory muscle use good effort. Abdomen is soft she has mild epigastric tenderness without guarding rebound or rigidity. Alcohol withdrawal, questionable seizuresno ongoing seizure activity noted. Certainly if she had true seizures the alcohol abuse and withdrawal would be more than enough to explain the situation, however, given that it seems to have been happening before tooonce she is more able to lay still we will obtain MRI brain to rule out any structural brain disease. Otherwise, symptom triggered benzos/Librium for now Abdominal painmost likely alcohol gastritissupportive care, serial exams. Otherwise as above. Subjective Patient seen and evaluated at bedside this morning. No acute events overnight. This morning, patient is responsive to verbal stimulation but falls asleep shortly after waking up. Patient endorses persistent abdominal pain and some nausea without vomiting. No other symptoms at this time. Patient denies CP, SOB, abdominal pain, nausea, vomiting, lightheadedness, dizziness, and diarrhea. Review of Systems Review of Systems: See HPI Physical Exam Physical Exam: Constitutional: tired-appearing, somnolent, no acute distress HEENT: NCAT, no scleral icterus CV: regular rhythm, no murmur appreciated, extremities well-perfused, no LE edema Resp: CTABL, no wheezes/rales/rhonchi appreciated, no increased work of breathing GI: soft, nondistended, moderate tenderness of the epigastrium and RUQ/LUQ, mild tenderness of RLQ/LLQ, no rebound tenderness our guarding, BS present MSK: no gross deformities appreciated Skin: warm, dry, no rash appreciated Results & Data Results & Data ([facility]) Vital Signs (Past 12 Hours) Vital Signs Temp Pulse Pulse Resp BP Pulse Ox 03/24/21 04:25 36.8 C 85 18 124/84 95 03/24/21 00:59 36.9 C 92 H 16 91 03/23/21 22:42 98 H 03/23/21 20:10 36.8 C 99 H 24 96 Resident Activity Tracking Resident Involvement: Resident Care Provided Care Provided: Adult Hospital Medicine
[2021-03-24] MEDS: MAGNESIUM SULFATE / D5W 1 GM/100 ML BAG IV SCH ×2 (08:57→11:12)
[2021-03-24] MEDS: LORazepam 2 MG/4 ML VIAL IV PRN ×2 (08:58→19:27)
[2021-03-24] MEDS: POT PHOSPHATE MONOBASIC W/ SOD TAB PO SCH ×4 (08:58→22:06)
[2021-03-24] MEDS: FOLIC ACID 1 MG TAB PO SCH (08:59)
[2021-03-24] MEDS: THIAMINE HCL 100 MG TAB PO SCH (08:59)
[2021-03-24] MEDS: MAGNESIUM OXIDE 400 MG TAB PO SCH (09:00)
[2021-03-24] MEDS: SODIUM CHLORIDE 0.9% 1000ML 1,000 ML IV SCH ×2 (09:18→23:34)
[2021-03-24] MEDS: LORazepam 1 MG/2 ML VIAL IV PRN ×3 (11:12→18:18)
--- NOTE | 2021-03-24 16:29 | Billing Data ---
Date of Service March 24, 2021 Coding Level of Care Code 21496 Subseq Hosp Care Lvl 3
[2021-03-24] MEDS ORDERED: MELATONIN 3 MG TAB PO PRN (18:39)
[2021-03-24] MEDS: LEVALBUTEROL TARTRATE 15 GM HFA.AER.AD INH PRN (19:38)
[2021-03-24] MEDS: ENOXAPARIN INJ 40 MG/0.4 ML SYR SQ SCH (19:50)
[2021-03-24] MEDS: MELATONIN 3 MG TAB PO PRN (20:22)
[2021-03-24] MEDS: ACETAMINOPHEN 325 MG TAB PO PRN (20:25)
[2021-03-24] MEDS: LORazepam 3 MG/6 ML VIAL IV PRN (21:02)
[2021-03-24] MEDS: CHLORDIAZEPOXIDE 50MG 2ND DOSE PO SCH (22:05)
[2021-03-25] MEDS: LORazepam 1 MG/2 ML VIAL IV PRN ×2 (00:44→04:49)
[2021-03-25] MEDS: ACETAMINOPHEN 325 MG TAB PO PRN (01:36)
[2021-03-25] MEDS: LEVALBUTEROL TARTRATE 15 GM HFA.AER.AD INH PRN ×2 (04:41→23:18)
[2021-03-25] MEDS: CHLORDIAZEPOXIDE 50MG 2ND DOSE PO SCH ×2 (05:46→13:01)
[2021-03-25 07:51] LABS: Basophils # (auto) 0.02 K/uL (0-0.2); Basophils % (auto) 0.3 %; Eosinophils # (auto) 0.57 K/uL (0-0.5); Eosinophils % (auto) 8.2 %; Hematocrit (blood only) 35.6 % (37-47); Hemoglobin 11.6 g/dL (12.0-16.0); Immature Granulocytes # (auto) 0.01 K/uL (0.00-0.02); Immature Granulocytes % (auto) 0.1 %; Lymphocytes # (auto) 2.29 K/uL (1.2-3.4); Lymphocytes % (auto) 32.8 %; Mean Corpuscular Hemoglobin 31.2 pg (25-34); Mean Corpuscular Hgb Conc 32.6 g/dL (32-36); Mean Corpuscular Volume 95.7 fL (80-100); Mean Platelet Volume 9.6 fL (7.4-10.4); Monocytes # (auto) 0.66 K/uL (0.11-0.59); Monocytes % (auto) 9.5 %; Neutrophils # (auto) 3.43 K/uL (1.4-6.5); Neutrophils % (auto) 49.1 %; Platelet Count 256 K/uL (130-400); RDW Coefficient of Variation 15.3 % (11.5-14.5); RDW Standard Deviation 53.6 fL (36.4-46.3); Red Blood Count 3.72 M/uL (4.2-5.4); White Blood Count 6.98 K/uL (4.8-10.8)
[2021-03-25] MEDS: LORazepam 2 MG/4 ML VIAL IV PRN ×4 (08:05→13:52)
[2021-03-25] MEDS: KETOROLAC TROMETHAMINE 15 MG/ML VIAL IV PRN (08:05)
--- NOTE | 2021-03-25 08:11 | Hospitalist Progress Note ---
Date of Service March 25, 2021 Assessment & Plan (1) Alcohol withdrawal: Plan: 36yo female with a history of alcohol use disorder, alcohol withdrawal, and alcohol withdrawal seizures presents with seizure-like activity in the setting of alcohol withdrawal. Seizure-like activity, alcohol withdrawal Likely secondary to alcohol withdrawal; low suspicion for underlying seizure disorder though not entirely excluded Continue AWSS with ativan and librium Will obtain MRI brain to assess for any chronic degeneration Epileptics not indicated at this time in the absence of evidence of underlying seizure disorder Continue folate and thiamine Continue NSS @ 80mL/hr If patient's agitation worsens, consider dose of phenobarbital Back pain 2/2: worsening of patient's chronic mild back pain, and development of new right-sided CVA tenderness CT abdomen/pelvis shows questionable evidence of mild pancreatitis; however, amylase wnl, lipase only very slightly elevated Pain control: APAP 1000mg IV q8h scheduled, toradol 15mg IV q6h prn moderate pain, morphine 2mg q3h prn severe pain Continue NSS @ 150mL/hr Abdominal pain Likely due to alcohol gastritis Continue supportive care, serial exams Hypokalemia Likely secondary to poor PO intake Started KCl 20mEq bid Trend daily BMP FEN: regular diet, NSS @ 150mL/hr Code status: full code DVT ppx: lovenox Case management: following Dispo: PCU telemetry Admission and Anticipated Discharge Date Admission Date: March 23, 2021 Supervising Physician Co-Signing Physician Notes I personally examined the patient and verified all dow points of history and exam, discussed case, and agree with decision making with Dr Morton very agitated throughout the day. when i see her she has just gotten versed and is sleeping soundly sleeping soundly nad. breathing unlabored. skin no rashes no pallor or icterus severe alcohol withdrawal, questionable seizuresno ongoing seizure activity noted. Certainly if she had true seizures the alcohol abuse and withdrawal would be more than enough to explain the situation, however, given that it seems to have been happening before tooonce she is more able to lay still we will obtain MRI brain to rule out any structural brain disease for completeness. otherwise worsening - escalated ativan today - moving to ICU for more intensive management Abdominal painmost likely alcohol gastritis Otherwise as above. Subjective Patient seen and evaluated at bedside this morning. No acute events overnight. This morning, patient feels "okay", complaining of mild back pain in addition to fatigue. Reports her shaking/convulsions have improved. Endorses mild anxiety today. No other symptoms or concerns at this time. Patient denies CP, SOB, nausea, vomiting, lightheadedness, dizziness, and diarrhea. Later in the morning (approx 0900), I was notified by RN that patient's back pain had worsened and that patient had developed CVA tenderness. Upon my reevaluation, patient was restless and uncomfortable, endorsing 9/10 back pain, and with right-sided CVA tenderness. No other new symptoms at this time. Review of Systems Review of Systems: See HPI Physical Exam Physical Exam: Constitutional: laying in bed, disheveled appearance, no acute distress HEENT: NCAT, no scleral icterus CV: regular rhythm, no murmur appreciated, extremities well-perfused, no LE edema Resp: CTABL, no wheezes/rales/rhonchi appreciated, no increased work of breathing GI: soft, nondistended, mild tenderness of the epigastrium and RUQ/LUQ, minimal tenderness of RLQ/LLQ, no rebound tenderness our guarding, BS present MSK: no gross deformities appreciated, no back tenderness Skin: warm, dry, no rash appreciated Results & Data Results & Data ([facility]) Vital Signs (Past 12 Hours) Vital Signs Temp Pulse Pulse Resp BP Pulse Ox 03/25/21 06:18 36.3 C L 86 20 106/70 96 03/25/21 04:42 78 16 97 03/25/21 03:00 37.0 C 96 H 22 146/66 H 98 03/24/21 23:09 83 03/24/21 23:00 36.7 C 86 15 122/81 96 Resident Activity Tracking Resident Involvement: Resident Care Provided Care Provided: Adult Hospital Medicine
[2021-03-25 08:25] LABS: Albumin Globulin Ratio 1.6 (0.9-2); Albumin Level 3.1 gm/dl (3.4-5.0); BUN Creatinine Ratio 25.7 (10-20); Bilirubin,Total 0.2 mg/dl (0.2-1.0); Calcium 6.7 mg/dl (8.5-10.1); Creatinine Clr Calc Pharmacy 128.9 ml/min; Potassium 3.2 mmol/L (3.5-5.1); Total Protein 5.1 gm/dl (6.0-8.3)
[2021-03-25] MEDS ORDERED: MoRPHine SULFATE 2 MG/ML CARP IV STA (09:08)
[2021-03-25] MEDS ORDERED: ACETAMINOPHEN 1000 MG/100 ML IV IV SCH (09:15)
[2021-03-25] MEDS: ENOXAPARIN INJ 40 MG/0.4 ML SYR SQ SCH (09:35)
[2021-03-25] MEDS: THIAMINE HCL 100 MG TAB PO SCH (09:36)
[2021-03-25] MEDS: POTASSIUM CHLORIDE CRTAB 20 MEQ TABCR PO SCH ×2 (09:36→22:08)
[2021-03-25] MEDS: MAGNESIUM OXIDE 400 MG TAB PO SCH ×2 (09:37→22:09)
[2021-03-25] MEDS: FOLIC ACID 1 MG TAB PO SCH (09:37)
[2021-03-25] MEDS: CALCIUM CARBONATE 1,250 MG/5 ML UDC PO SCH ×2 (09:37→22:09)
[2021-03-25 10:02] LABS: Magnesium 1.6 mg/dl (1.7-2.4); Phosphorus 3.8 mg/dl (2.5-4.9)
[2021-03-25] MEDS: ACETAMINOPHEN 1,000 MG/100 ML VIAL IV SCH ×2 (10:25→22:31)
--- NOTE | 2021-03-25 10:47 | CT Scan Report ---
CT SCAN OF THE ABDOMEN AND PELVIS WITHOUT IV CONTRAST CLINICAL HISTORY: Acute back pain. Flank pain. COMPARISON STUDY: Abdominal CT dated 08/19/2020. TECHNIQUE: CT scan of the abdomen and pelvis is performed from the lung bases to the proximal femora. Images are reviewed in the axial, sagittal, and coronal planes. IV contrast was not administered for this examination. A dose lowering technique was utilized adhering to the principles of ALARA. The ex amination is compromised by motion artifact. CT DOSE: 1037.95 mGycm FINDINGS: Lung bases: The heart is normal in size and without pericardial effusion. The lung bases are clear. Liver: The unenhanced liver is enlarged, measuring over 20 cm in craniocaudal length. The liver is ot herwise normal in contour and attenuation. There is no intrahepatic biliary ductal dilatation. Gallbladder: Surgically absent noting clips in the gallbladder fossa. Spleen: Normal in size and attenuation. There are calcified splenic granulomas. Pancreas: Question mild infiltration versus artifact around the pancreatic tail. The unenhanced pancr eas is otherwise grossly unremarkable. Adrenal glands: Unremarkable. Kidneys: The unenhanced kidneys are normal in size and without hydronephrosis. There are no renal joe culi identified. There is no evidence of contour deforming renal mass lesion. Abdominal vasculature: The abdominal aorta is normal in course and caliber. Bowel: Moderate fecal retention is seen throughout the colon. There is no bowel obstruction. The appe ndix is well-visualized and normal. Peritoneum: There is no intraperitoneal free air or abdominal ascites. There is a small fat-containin g umbilical hernia. Lymphadenopathy: None. Pelvic viscera: The bladder, uterus, and adnexa are normal as visualized. Surgical clips are noted in the adnexa. Skeletal structures: No lytic or blastic lesions are seen. IMPRESSION: 1. Motion compromised examination. 2. Question mild infiltration versus artifact around the pancreatic tail. Correlate with clinical fin dings and serum amylase/lipase levels for evidence of mild pancreatitis. 3. Status post cholecystectomy. 4. Hepatomegaly. 5. Additional findings as above. ACT 112: Negative or not required by law. Electronically signed by: Zach Back M.D. 03/25/2021 10:45 AM
[2021-03-25] MEDS ORDERED: LORazepam 2 MG/ML VIAL (IM USE) IM STA (10:49)
[2021-03-25] MEDS: LORazepam 3 MG/6 ML VIAL IV PRN ×4 (11:07→16:06)
[2021-03-25] MEDS: MoRPHine SULFATE 2 MG/ML CARP IV PRN ×2 (11:22→15:38)
[2021-03-25 11:27] LABS: Amylase 39 U/L (25-115); Lipase 113 U/L (11-82)
[2021-03-25] MEDS: SODIUM CHLORIDE 0.9% 1000ML 1,000 ML IV SCH ×2 (11:37→17:29)
[2021-03-25] MEDS ORDERED: HALOPERIDOL LACTATE 5 MG/ML 1 ML VIAL IM PRN (12:38)
[2021-03-25] MEDS ORDERED: PHENobarbital sodium 65 MG/ML VIAL IM STA (16:28)
[2021-03-25] MEDS ORDERED: STAT IV Infusion **Titration per Protocol STA (16:33)
[2021-03-25] MEDS ORDERED: MIDAZOLAM HCL 5 MG/ML 1 ML VIAL IV STA (16:37)
--- NOTE | 2021-03-25 16:48 | Critical Care Consultation ---
Date of Consultation March 25, 2021 Assessment & Plan (1) Alcohol withdrawal: (2) Acute delirium: (3) Combative behavior: (4) Seizure: --Agitated delirium Likely from alcohol withdrawal Patient's last drink was on 03/23/2021, Tylenol which falls into 48 h very when usually finds the symptoms Alcohol level 03/23/2021: 260 Ethanol level on average on previous admission has been around 250-300 She has gone a total of 100 mg of Librium, 18 mg of Ativan Start the patient on Precedex Keep the patient RASS -1 If there is any clinical deterioration in the patient's mental status or severe agitation we will plan to intubate --Epigastric tenderness Amylase 113 AST/ALT within normal limit Alk phos within normal limit CT abdomen pelvis shows possibility of mild pancreatitis Gastritis from alcohol use can also be a possibility --Questionable history of seizures No witnessed seizures while in the hospital I will hold back on the seizure medication currently If the patient has any more seizures and I will start the patient on Keppra --History of anxiety Restart Lexapro --Active smoker Advised to quit --Left upper lobe pulmonary nodule Appreciated with CT chest on 08/17/2020 and again on 02/17/[address] in 1 year Plan: Patient's underlying baseline anxiety is definitely playing a role especially when patient is starting to withdrawal. Hypokalemia is being replaced Continue with thiamine and folic acid Patient does have epigastric tenderness with no rebound Mild pancreatitis possibility on the CT abdomen pelvis, mildly elevated lipase. We will give IV fluids LR at 125 mg/L and reassess Gastritis is also possibility for epigastric tenderness continue with proton Continue with Precedex Chlordiazepoxide Ativan 3 mg every 4 hours as needed I have personally spent 51 minutes of critical care time in the direct management of this patient. This is a life/limb threatening event. This includes time spent evaluating patient, direct bedside care, chart review, placing orders, interpretation of diagnostic studies, discussion with consultants, patient, and family members, as well as other required patient management activities. This time is exclusive of all separately billable procedures, and teaching time and separate from and in addition to any other critical care service time. Please note the above document was generated using voice recognition software. It may contain grammatical, syntax or spelling errors. History of Present Illness Attending Physician: Medhat Morgan DO History of Present Illness 36-year-old female past medical history of chronic alcohol abuse, active smoker was admitted to hospital because of multiple seizures As per the patient she is not on any seizure medications. Patient got total of 20 mg of Ativan while on the floor She is also on 5 mg of haloperidol and still trying to elope from the hospital ICU were consulted because of increasing need of benzodiazepines. Signout was given briefly by resident Dr. Morton At the time of examination patient was RASS -1, 0 She was able to answer few questions. She wanted to talk to her children. She knew that she was in the hospital but I do not know the name Denies any chest pain, no shortness of breath Did complain of mild epigastric pain No nausea or vomiting She was started on Precedex 0.2 the moment I will entered the room Social history: Heavy daily drinker, active smoker Allergies Allergy/AdvReac Type Severity Reaction Status Date / Time amoxicillin Allergy Intermediate Hives Verified 03/22/21 19:38 clavulanic acid Allergy Intermediate Hives Verified 03/22/21 19:38 [From Augmentin] Penicillins Allergy Intermediate Hives Verified 03/22/21 19:38 sulfamethoxazole Allergy Intermediate Hives Verified 03/22/21 19:38 [From Septra] trimethoprim [From Septra] Allergy Intermediate Hives Verified 03/22/21 19:38 famotidine [From Pepcid] Allergy Mild Red Skin Unverified 03/22/21 19:38 Splotches Home Medications Medication Instructions Recorded Confirmed Type docusate sodium 100 mg capsule 100 mg PO BID PRN 08/19/20 03/22/21 History (Colace) folic acid 1 mg tablet 1 mg PO QAM #30 tab 10/05/20 03/22/21 Rx thiamine HCl (vitamin B1) 100 mg 100 mg PO QAM #30 tab 10/05/20 03/22/21 Rx tablet (Vitamin B-1) buprenorphine 8 mg-naloxone 2 mg 2 film SUBLINGUAL DAILY 02/16/21 03/22/21 History sublingual film Patient History Medical History Alcohol intoxication Impending delirium tremens Kidney stone Pulmonary nodule seen on imaging study Tobacco use disorder Surgical History No significant past surgical history Social History Smoking Status: Current every day smoker Tobacco Type: Cigarettes Cigarettes Per Day: Half a pack; Second Hand Exposure: No; Do You Dip or Chew Tobacco: No; Hx Alcohol Use: Yes Alcohol type: hard liquor Hx Substance Use: No Preferred Language: French Communication Ability: Effective Bi Manager Required: No Beliefs That Will Affect Care: None Current Living Situation: Other Current Living Situation Comment: Roommate Other Information That Helps Us Care for You: No Feels Safe at Home: Yes Safety Concerns: Feels Safe At This Time Assistive Devices: None Review of Systems Review of Systems: All systems reviewed & are unremarkable except as noted in HPI & below Physical Exam Physical Exam: Constitutional: No acute distress HEENT: EOMI, PERRLA Respiratory system: Good air entry bilaterally, no wheeze, no rhonchi, no crackles CVS: S1-S2 positive, no murmurs or gallops Abdomen: Soft, nondistended, positive bowel sounds x4, obese, epigastric tenderness, no rebound Extremities: +2 pulses bilaterally radialis/ dorsalis pedis, no cyanosis, no edema Neuro: Awake alert oriented to self and place Psych: Normal mood and affect G/U: No [place] Skin: no rashes, warm and dry Lymphatic: no cervical or axillary lymphadenopathy Results & Data Results & Data ([facility]) Vital Signs (Past 12 Hours) Vital Signs Temp Pulse Pulse Resp BP Pulse Ox 03/25/21 16:00 36.6 C 77 28 H 139/78 96 03/25/21 14:47 36.5 C 75 30 H 118/74 97 03/25/21 13:51 36.9 C 76 20 117/76 97 03/25/21 12:51 36.7 C 75 28 H 109/75 99 03/25/21 11:47 36.9 C 87 26 H 124/79 97 03/25/21 11:00 36.9 C 86 22 116/77 97 03/25/21 08:14 103 H 03/25/21 06:18 36.3 C L 86 20 106/70 96 03/25/21 04:42 78 16 97 Laboratory Results 03/25/21 07:08 03/25/21 07:08 Coding Level of Care Code Critical Care 1st 30-74 mins Diagnoses Alcohol withdrawal F10.239 Acute delirium R41.0 Combative behavior R46.89 Seizure R56.9 Time Spent (min) 51
[2021-03-25] MEDS: DEXMEDETOMIDINE HCL 200 MCG in SODIUM CHLORIDE 0.9% 48 ML IV SCH ×2 (17:29→20:15)
--- NOTE | 2021-03-25 17:30 | Billing Data ---
Date of Service March 25, 2021 Coding Level of Care Code 10230 Subseq Hosp Care Lvl 3
[2021-03-25] MEDS ORDERED: LACTATED RINGER'S 1,000 ML IV SCH (17:45)
--- NOTE | 2021-03-25 18:04 | Communication Note ---
Date of Service: March 25, 2021 Was notified by RN that patient had become increasingly agitated over the course of the afternoon despite receiving 20mg ativan from the AWSS protocol. Patient had pulled out her IV and attempted to elope but was stopped in the stairwell. I discussed the case with the on-call inventory administrator, who recommended midazolam 5mg IV stat, and to transfer patient to ICU given her worsening clinical picture and history of severe alcohol withdrawal requiring ICU care and precedex in the past. The midazolam led to adequate sedation, and patient was transferred do [facility]. Will continue to follow.
[2021-03-25] MEDS: ESCITALOPRAM OXALATE 10 MG TAB PO SCH (18:31)
[2021-03-25] MEDS: PANTOprazole 40 MG TAB PO SCH (18:31)
[2021-03-25] MEDS: CHLORDIAZEPOXIDE 25MG 3RD DOSE PO SCH (22:08)
[2021-03-25] MEDS: MELATONIN 3 MG TAB PO PRN (23:22)
[2021-03-26] MEDS: DEXMEDETOMIDINE HCL 200 MCG in SODIUM CHLORIDE 0.9% 48 ML IV SCH ×12 (00:14→23:52)
[2021-03-26] MEDS: ACETAMINOPHEN 1,000 MG/100 ML VIAL IV SCH (05:03)
[2021-03-26 05:22] LABS: Basophils # (auto) 0.02 K/uL (0-0.2); Basophils % (auto) 0.2 %; Eosinophils # (auto) 0.58 K/uL (0-0.5); Eosinophils % (auto) 6.9 %; Hematocrit (blood only) 38.2 % (37-47); Hemoglobin 12.6 g/dL (12.0-16.0); Immature Granulocytes # (auto) 0.01 K/uL (0.00-0.02); Immature Granulocytes % (auto) 0.1 %; Lymphocytes # (auto) 2.82 K/uL (1.2-3.4); Lymphocytes % (auto) 33.7 %; Mean Corpuscular Hemoglobin 31.6 pg (25-34); Mean Corpuscular Volume 95.7 fL (80-100); Mean Platelet Volume 9.8 fL (7.4-10.4); Monocytes # (auto) 0.64 K/uL (0.11-0.59); Monocytes % (auto) 7.7 %; Neutrophils # (auto) 4.29 K/uL (1.4-6.5); Neutrophils % (auto) 51.4 %; Platelet Count 261 K/uL (130-400); RDW Coefficient of Variation 15.2 % (11.5-14.5); RDW Standard Deviation 53.7 fL (36.4-46.3); Red Blood Count 3.99 M/uL (4.2-5.4); White Blood Count 8.36 K/uL (4.8-10.8)
[2021-03-26] MEDS: CHLORDIAZEPOXIDE 25MG 3RD DOSE PO SCH ×2 (05:48→15:27)
[2021-03-26] MEDS: LEVALBUTEROL TARTRATE 15 GM HFA.AER.AD INH PRN (05:58)
[2021-03-26 06:05] LABS: Albumin Globulin Ratio 1.4 (0.9-2); Albumin Level 3.4 gm/dl (3.4-5.0); BUN Creatinine Ratio 16.9 (10-20); Bilirubin,Total 0.4 mg/dl (0.2-1.0); Calcium 8.5 mg/dl (8.5-10.1); Creatinine Clr Calc Pharmacy 138.8 ml/min; Est GFR (African American) 134.3 ml/min; Est GFR (Non-African American) 115.8 ml/min; Globulin 2.4 gm/dl (2.5-4.0); Magnesium 1.6 mg/dl (1.7-2.4); Potassium 4.2 mmol/L (3.5-5.1); Total Protein 5.8 gm/dl (6.0-8.3)
[2021-03-26] MEDS: MAGNESIUM SULFATE / D5W 1 GM/100 ML BAG IV SCH ×3 (06:51→11:26)
--- NOTE | 2021-03-26 07:51 | Hospitalist Progress Note ---
Date of Service March 26, 2021 Assessment & Plan (1) Alcohol withdrawal: Plan: 36yo female with a history of alcohol use disorder, alcohol withdrawal, and alcohol withdrawal seizures presents with seizure-like activity in the setting of alcohol withdrawal. Seizure-like activity, alcohol withdrawal, agitation, delirium Unwitnessed seizure activity suspected secondary to alcohol withdrawal; low suspicion for underlying seizure disorder though not entirely excluded; no seizure activity witnessed since admission Patient with reported history of alcohol withdrawal seizures including prior admission requiring ICU care with precedex drip Continue AWSS with ativan and librium Will obtain MRI brain to assess for any chronic degeneration Epileptics not indicated at this time in the absence of evidence of underlying seizure disorder Due to significant worsening of agitation (2/2), pulling out IV, attempted elopement, discussed with blade aligner who recommended transfer to ICU for precedex drip Midazolam 5mg IV x1 given just prior to transfer to ICU; phenobarbital was initially ordered but was not administered per blade aligner recommendation Intubation indicated if agitation worsens further Management per ICU Back pain, concern for pancreatitis 2/2: worsening of patient's chronic mild back pain, and development of new right-sided CVA tenderness CT abdomen/pelvis shows questionable evidence of mild pancreatitis; however, amylase wnl, lipase only very slightly elevated Pain control: APAP 1000mg IV q8h scheduled, toradol 15mg IV q6h prn moderate pain, morphine 2mg q3h prn severe pain Management per ICU Abdominal pain Likely due to alcohol gastritis Continue supportive care, serial exams Management per ICU Hypokalemia Likely secondary to poor PO intake Started KCl 20mEq bid Trend daily BMP Management per ICU FEN: regular diet, NSS @ 150mL/hr Code status: full code DVT ppx: lovenox Case management: following Dispo: ICU for precedex drip Admission and Anticipated Discharge Date Admission Date: March 23, 2021 Supervising Physician Co-Signing Physician Notes I personally examined the patient and verified all dow points of history and exam, discussed case, and agree with decision making with Dr Morton Sleeping comfortably. Appreciate ICU management. No HPI review of systems today sleeping soundly nad. breathing unlabored. skin no rashes no pallor or icterus severe alcohol withdrawal, questionable seizuresno ongoing seizure activity noted. Certainly if she had true seizures the alcohol abuse and withdrawal would be more than enough to explain the situation, however, given that it seems to have been happening before tooonce she is more able to lay still we will obtain MRI brain to rule out any structural brain disease for completeness. Now in ICU, Precedex, etc. Appreciate ICU management Abdominal painmost likely alcohol gastritis Otherwise as above. Subjective See attending documentation Review of Systems Review of Systems: See attending documentation Physical Exam Physical Exam: See attending documentation Results & Data Results & Data ([facility]) Vital Signs (Past 12 Hours) Vital Signs Pulse Pulse Resp BP Pulse Ox 03/26/21 06:08 18 96 03/26/21 04:01 62 34 H 146/96 H 93 03/26/21 03:00 55 L 30 H 142/93 H 90 03/26/21 02:01 58 L 32 H 133/94 94 03/26/21 01:01 59 L 30 H 151/98 H 92 03/26/21 00:02 61 30 H 150/97 H 91 03/26/21 00:00 59 L 03/25/21 23:19 65 94 03/25/21 23:01 64 32 H 137/84 90 03/25/21 22:03 59 L 29 H 137/86 94 03/25/21 21:01 58 L 29 H 152/88 H 93 03/25/21 20:04 50 L 28 H 141/88 H 97 Resident Activity Tracking Resident Involvement: Resident Care Provided Care Provided: Adult Hospital Medicine
[2021-03-26] MEDS: MAGNESIUM OXIDE 400 MG TAB PO SCH (08:17)
[2021-03-26] MEDS: CALCIUM CARBONATE 1,250 MG/5 ML UDC PO SCH (08:17)
[2021-03-26] MEDS: POTASSIUM CHLORIDE CRTAB 20 MEQ TABCR PO SCH (08:17)
[2021-03-26] MEDS: PANTOprazole 40 MG TAB PO SCH (08:18)
[2021-03-26] MEDS: FOLIC ACID 1 MG TAB PO SCH (08:18)
[2021-03-26] MEDS: ESCITALOPRAM OXALATE 10 MG TAB PO SCH (08:18)
[2021-03-26] MEDS: ENOXAPARIN INJ 40 MG/0.4 ML SYR SQ SCH (08:19)
[2021-03-26] MEDS: THIAMINE HCL 100 MG TAB PO SCH (08:36)
[2021-03-26] MEDS: KETOROLAC TROMETHAMINE 15 MG/ML VIAL IV PRN ×2 (10:54→21:55)
[2021-03-26] MEDS: LORazepam 1 MG/2 ML VIAL IV PRN (10:55)
[2021-03-26] MEDS: MoRPHine SULFATE 2 MG/ML CARP IV PRN ×2 (11:27→16:49)
[2021-03-26] MEDS ORDERED: LORazepam 4 MG/8 ML VIAL IV STA (12:06)
--- NOTE | 2021-03-26 15:00 | Critical Care Progress Note ---
Date of Service March 26, 2021 Assessment & Plan (1) Alcohol withdrawal: (2) Acute delirium: (3) Combative behavior: (4) Seizure: Plan: --Agitated delirium Likely from alcohol withdrawal Patient's last drink was on 03/23/2021, Tylenol which falls into 48 h very when usually finds the symptoms Alcohol level 03/23/2021: 260 Ethanol level on average on previous admission has been around 250-300 She has gone a total of 100 mg of Librium, 18 mg of Ativan prior to coming to the ICU Keep the patient RASS -1 If there is any clinical deterioration in the patient's mental status or severe agitation we will plan to intubate --Epigastric tenderness Amylase 113 AST/ALT within normal limit Alk phos within normal limit CT abdomen pelvis shows possibility of mild pancreatitis Gastritis from alcohol use can also be a possibility --Questionable history of seizures No witnessed seizures while in the hospital I will hold back on the seizure medication currently If the patient has any more seizures and I will start the patient on Keppra --History of anxiety Restart Lexapro --Active smoker Advised to quit --Left upper lobe pulmonary nodule Appreciated with CT chest on 08/17/2020 and again on 02/17/[address] in 1 year Plan: In/out: +274, urine output 2552 Patient still requiring Precedex. We will go down on the Precedex Continue with Librium as well as Ativan on as-needed basis Condition being replaced Patient did have a bout of restlessness where she wanted to sign out AMA. I do not think patient has a capacity right now to sign out AMA given that she was on Precedex 4 mg of Ativan was given Continue with one-to-one I have personally spent 35 minutes of critical care time in the direct management of this patient. This is a life/limb threatening event. This includes time spent evaluating patient, direct bedside care, chart review, placing orders, interpretation of diagnostic studies, discussion with consultants, patient, and family members, as well as other required patient management activities. This time is exclusive of all separately billable procedures, and teaching time and separate from and in addition to any other critical care service time. Please note the above document was generated using voice recognition software. It may contain grammatical, syntax or spelling errors. Admission and Anticipated Discharge Date Admission Date: March 23, 2021 Subjective Patient seen and examined at bedside. No acute distress, no dressings overnight She was on 0.6 of Precedex the time of examination She is still getting Librium She did not get any extra dose of Ativan She denied any headache, no nausea, no vomiting Abdominal pain is improved. She was RASS -1 to -2 Review of Systems Review of Systems: All systems reviewed & are unremarkable except as noted in Subjective Physical Exam Physical Exam: Constitutional: No acute distress HEENT: EOMI, PERRLA Respiratory system: Good air entry bilaterally, no wheeze, no rhonchi, no crack les CVS: S1-S2 positive, no murmurs or gallops Abdomen: Soft, nondistended, positive bowel sounds x4, obese, epigastric tenderness, no rebound Extremities: +2 pulses bilaterally radialis/ dorsalis pedis, no cyanosis, no edema Neuro: Awake alert oriented to self and place Psych: Normal mood and affect G/U: No [place] Skin: no rashes, warm and dry Lymphatic: no cervical or axillary lymphadenopathy Results & Data Results & Data ([facility]) Vital Signs (Past 12 Hours) Vital Signs Temp Pulse Resp BP Pulse Ox 03/26/21 11:03 36.8 C 03/26/21 08:00 37.4 C 70 21 136/93 90 03/26/21 07:01 73 28 H 133/80 90 03/26/21 06:08 18 96 03/26/21 04:01 62 34 H 146/96 H 93 03/26/21 03:00 55 L 30 H 142/93 H 90 Laboratory Results 03/26/21 04:58 03/26/21 04:58 Coding Level of Care Code Critical Care 1st 30-74 mins Diagnoses Alcohol withdrawal F10.239 Acute delirium R41.0 Combative behavior R46.89 Seizure R56.9 Time Spent (min) 35
[2021-03-26] MEDS: LORazepam 2 MG/4 ML VIAL IV PRN (16:49)
--- NOTE | 2021-03-26 18:26 | Billing Data ---
Date of Service March 26, 2021 Coding Level of Care Code 69718 Subseq Hosp Care Lvl 1
[2021-03-26] MEDS: LORazepam 3 MG/6 ML VIAL IV SCH (20:15)
[2021-03-27] MEDS: LORazepam 3 MG/6 ML VIAL IV SCH ×2 (01:20→07:13)
[2021-03-27] MEDS ORDERED: CHLORDIAZEPOXIDE 10MG 4TH DOSE PO SCH (02:00)
[2021-03-27] MEDS: ACETAMINOPHEN 325 MG TAB PO PRN ×2 (02:16→08:00)
[2021-03-27] MEDS: LEVALBUTEROL TARTRATE 15 GM HFA.AER.AD INH PRN ×2 (02:32→16:12)
[2021-03-27] MEDS: MoRPHine SULFATE 2 MG/ML CARP IV PRN ×5 (02:36→16:03)
[2021-03-27 04:49] LABS: Basophils # (auto) 0.02 K/uL (0-0.2); Basophils % (auto) 0.3 %; Eosinophils # (auto) 0.46 K/uL (0-0.5); Eosinophils % (auto) 6.8 %; Hematocrit (blood only) 37.9 % (37-47); Hemoglobin 12.6 g/dL (12.0-16.0); Immature Granulocytes # (auto) 0.01 K/uL (0.00-0.02); Immature Granulocytes % (auto) 0.1 %; Lymphocytes # (auto) 1.87 K/uL (1.2-3.4); Lymphocytes % (auto) 27.6 %; Mean Corpuscular Hemoglobin 31.3 pg (25-34); Mean Corpuscular Hgb Conc 33.2 g/dL (32-36); Mean Platelet Volume 9.9 fL (7.4-10.4); Monocytes # (auto) 0.59 K/uL (0.11-0.59); Monocytes % (auto) 8.7 %; Neutrophils # (auto) 3.82 K/uL (1.4-6.5); Neutrophils % (auto) 56.5 %; Platelet Count 233 K/uL (130-400); RDW Coefficient of Variation 14.7 % (11.5-14.5); RDW Standard Deviation 50.6 fL (36.4-46.3); Red Blood Count 4.03 M/uL (4.2-5.4); White Blood Count 6.77 K/uL (4.8-10.8)
[2021-03-27] MEDS: KETOROLAC TROMETHAMINE 15 MG/ML VIAL IV PRN ×2 (04:56→12:10)
[2021-03-27 05:33] LABS: Albumin Globulin Ratio 1.3 (0.9-2); Albumin Level 3.5 gm/dl (3.4-5.0); BUN Creatinine Ratio 22.9 (10-20); Bilirubin,Total 0.4 mg/dl (0.2-1.0); Calcium 8.6 mg/dl (8.5-10.1); Creatinine Clr Calc Pharmacy 128.9 ml/min; Globulin 2.7 gm/dl (2.5-4.0); Magnesium 1.7 mg/dl (1.7-2.4); Potassium 4.1 mmol/L (3.5-5.1); Total Protein 6.2 gm/dl (6.0-8.3)
[2021-03-27 06:54] LABS: Estimated Average Glucose 100 mg/dl; Hemoglobin A1C 5.1 % (4.5-5.6)
[2021-03-27] MEDS: DEXMEDETOMIDINE HCL 200 MCG in SODIUM CHLORIDE 0.9% 48 ML IV SCH ×2 (07:08→07:09)
[2021-03-27] MEDS: FOLIC ACID 1 MG TAB PO SCH (07:49)
[2021-03-27] MEDS: ESCITALOPRAM OXALATE 10 MG TAB PO SCH (07:49)
[2021-03-27] MEDS: PANTOprazole 40 MG TAB PO SCH (07:49)
[2021-03-27] MEDS: ENOXAPARIN INJ 40 MG/0.4 ML SYR SQ SCH (07:50)
[2021-03-27] MEDS: THIAMINE HCL 100 MG TAB PO SCH (07:50)
--- NOTE | 2021-03-27 08:01 | Hospitalist Progress Note ---
Date of Service March 27, 2021 Assessment & Plan (1) Alcohol withdrawal: Plan: 36yo female with a history of alcohol use disorder, alcohol withdrawal, and alcohol withdrawal seizures presents with seizure-like activity in the setting of alcohol withdrawal. Seizure-like activity, alcohol withdrawal, agitation, delirium: - Unwitnessed seizure activity suspected secondary to alcohol withdrawal; low suspicion for underlying seizure disorder though not entirely excluded; no seizure activity witnessed since admission - Patient with reported history of alcohol withdrawal seizures including prior admission requiring ICU care with precedex drip - Continue AWSS with ativan and librium - Epileptics not indicated at this time in the absence of evidence of underlying seizure disorder - Due to significant worsening of agitation (2/2), pulling out IV, attempted elopement, 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 who recommended transfer to ICU for precedex drip - transferred from ICU this morning given improvement in overall condition and ability to be weaned off precedex drip - continue to monitor Delusions/paranoia: - patient persisently worried about , despite numerous re-assurances of negative testing - uncertain if this fixation is as a by-product of a currently undiagnosed mental health condition or other such process - history of hallucinations, and previous fixations/delusions - uncertain the reality of the court subpoena - consult psych now that substance withdrawal not currently a problem with continuation of delusions. Back pain: - 2/2 worsening of patient's chronic mild back pain - CT abdomen/pelvis shows questionable evidence of mild pancreatitis - amylase within normal limits, lipase only very slightly elevated - Pain control: APAP 1000mg IV q8h scheduled, toradol 15mg IV q6h prn moderate pain, morphine 2mg q3h prn severe pain Hypokalemia: - Likely secondary to poor PO intake - continue 20 meq KCl BID - Trend daily BMP Diet: regular diet Code status: full code DVT ppx: lovenox Admission and Anticipated Discharge Date Admission Date: March 23, 2021 Subjective Patient feeling somewhat improved this morning, glad to be off the medications that she was on and be a step closer to leaving. Fixated on the idea that she is , and looking at OTC tests in order to find out if she is , does not recognize the testing that she has had done in the hospital as being accurate, and believes that she is . Of note, had this same concrete thought process for months at a time earlier this year. Additionally, fixated on the idea that she has been subpoenaed to appear in court for something next week, and that if she misses that she will have a warrant for her arrest placed. Is unwilling to further elaborate on what this is about or why she was subpoenaed. Review of Systems Review of Systems: All systems reviewed & are unremarkable except as noted in Subjective Physical Exam Constitutional: WD/WN, vitals as above Eyes: PERRL, conjunctivae normal, anicteric sclerae Respiratory: normal respiratory effort, lungs clear to auscultation A uscultation: no crackles, no rales, no rhonchi and no wheezes Cardiovascular: Rate/Rhythm: regular rate and regular rhythm Heart Sounds: no gallop, no murmur and no cardiac rub Vessels: normal peripheral pulses; no JVD Extremities: no edema Gastrointestinal (Abdomen): Inspection/Auscultation: normal bowel sounds; abdomen not distended Percussion/Palpation: abdomen soft; abdomen nontender and no guarding Skin: no rashes, warm and dry Neurologic: PERRL, EOMI, accommodation nl, no face palsy, no dysarthria CN's II-XI intact bilaterally and moves all extremities Psychiatric: Thought Process: + circumstantial thought process and + perseveration Thought Content: + paranoid (about potential legal troubles) and + delusions (perseverates on thoughts) Judgement: + poor judgement Results & Data Results & Data ([facility]) Vital Signs (Past 12 Hours) Vital Signs Temp Pulse Pulse Resp BP Pulse Ox 03/27/21 06:00 50 L 19 84/63 L 95 03/27/21 05:01 60 106/82 95 03/27/21 05:00 62 93 03/27/21 04:02 62 19 93/46 L 94 03/27/21 04:00 61 18 91 03/27/21 03:00 66 21 108/73 96 03/27/21 02:37 71 19 107/62 96 03/27/21 02:34 67 20 96 03/27/21 02:01 59 L 22 89/57 L 95 03/27/21 02:00 62 24 92 03/27/21 01:02 61 26 H 128/90 03/27/21 01:00 60 19 03/27/21 00:52 46 L 15 134/62 98 03/27/21 00:00 44 L 19 98 03/26/21 23:00 50 L 19 98 03/26/21 22:01 36.7 C 46 L 22 141/92 H 97 03/26/21 22:00 50 L 21 95 03/26/21 21:30 48 L 22 97 03/26/21 21:01 48 L 21 153/97 H 97 03/26/21 21:00 48 L 22 97 03/26/21 20:30 44 L 21 97 Laboratory Results 03/27/21 03/27/21 03/27/21 Range/Units 04:25 04:25 04:25 WBC 6.77 (4.8-10.8) K/uL RBC 4.03 L (4.2-5.4) M/uL Hgb 12.6 (12.0-16.0) g/dL Hct 37.9 (37-47) % MCV 94.0 (80-100) fL MCH 31.3 (25-34) pg MCHC 33.2 (32-36) g/dL RDW Std Deviation 50.6 H (36.4-46.3) fL RDW Coeff of Yulissa 14.7 H (11.5-14.5) % Plt Count 233 (130-400) K/uL MPV 9.9 (7.4-10.4) fL Immature Gran % (Auto) 0.1 % Neut % (Auto) 56.5 % Lymph % (Auto) 27.6 % [place] % (Auto) 8.7 % Eos % (Auto) 6.8 % Baso % (Auto) 0.3 % Neut # (Auto) 3.82 (1.4-6.5) K/uL Lymph # (Auto) 1.87 (1.2-3.4) K/uL [place] # (Auto) 0.59 (0.11-0.59) K/uL Eos # (Auto) 0.46 (0-0.5) K/uL Baso # (Auto) 0.02 (0-0.2) K/uL Immature Gran # (Auto) 0.01 (0.00-0.02) K/uL Sodium 135 L (136-145) mmol/L Potassium 4.1 (3.5-5.1) mmol/L Chloride 102 (98-107) mmol/L Carbon Dioxide 25 (21-32) mmol/L Anion Gap 8 (3-11) BUN 16 (6-23) mg/dl Creatinine 0.70 (0.6-1.2) mg/dl Est Cr Clr Drug Dosing 128.9 ml/min Est GFR ( Amer) 131.0 ml/min Est GFR (Non-Af Amer) 113.0 ml/min BUN/Creatinine Ratio 22.9 H (10-20) Glucose 97 (70-99(Fasting)) mg/dl Estimat Average Glucose 100 mg/dl Hemoglobin A1c 5.1 (4.5-5.6) % Calcium 8.6 (8.5-10.1) mg/dl Phosphorus 5.0 H D (2.5-4.9) mg/dl Magnesium 1.7 (1.7-2.4) mg/dl Total Bilirubin 0.4 (0.2-1.0) mg/dl AST 17 (13-39) U/L ALT 18 (7-52) U/L Alkaline Phosphatase 77 (34-104) U/L Total Protein 6.2 (6.0-8.3) gm/dl Albumin 3.5 (3.4-5.0) gm/dl Globulin 2.7 (2.5-4.0) gm/dl Albumin/Globulin Ratio 1.3 (0.9-2) Medications Administered Current Inpatient Medications Acetaminophen (Acetaminophen 325 Mg Tab) 650 mg PO Q6H PRN PRN Reason: Fever Stop: 04/25/21 10:14 Last Admin: 03/27/21 08:00 Dose: 650 mg Documented by: Chlordiazepoxide HCl (Chlordiazepoxide 25mg 3rd Dose) 25 mg PO Q8 [facility]; Protocol Stop: 04/26/21 13:59 Enoxaparin Sodium (Enoxaparin Inj 40 Mg/0.4 Ml Syr) [facility] [place] Stop: 04/23/21 17:59 Last Admin: 03/27/21 07:50 Dose: 40 mg Documented by: Escitalopram Oxalate (Escitalopram Oxalate 10 Mg Tab) 10 mg PO QAM [facility] Stop: 04/24/21 16:59 Last Admin: 03/27/21 07:49 Dose: 10 mg Documented by: Folic Acid (Folic Acid 1 Mg Tab) 1 mg PO QAM [facility] Stop: 04/23/21 08:59 Last Admin: 03/27/21 07:49 Dose: 1 mg Documented by: Lorazepam (Ativan) 1 mg in 2 mls @ 2 mls/min IV UD PRN; Protocol PRN Reason: EtOH Withdrawl AWSS Score 6,7 Stop: 04/22/21 19:41 Last Admin: 03/26/21 10:55 Dose: 2 mls/min Documented by: Lorazepam (Ativan) 2 mg in 4 mls @ 4 mls/min IV UD PRN; Protocol PRN Reason: EtOH Withdrawl AWSS Score 8,9 Stop: 04/22/21 19:41 Last Admin: 03/27/21 10:33 Dose: 4 mls/min Documented by: Magnesium Sulfate/Dextrose (Magnesium Sulfate / D5w) 1 gm in 100 mls @ 50 mls/hr IV Q2H [facility] Stop: 03/27/21 12:14 Last Admin: 03/27/21 10:33 Dose: 50 mls/hr Documented by: Lorazepam (Ativan) 3 mg in 6 mls @ 4 mls/min IV Q6H PRN; Protocol PRN Reason: AWSS PROTOCOL Stop: 04/26/21 10:05 Ketorolac Tromethamine (Ketorolac Tromethamine 15 Mg/Ml Vial) 15 mg IV Q6H PRN PRN Reason: Pain Stop: 03/30/21 07:48 Last Admin: 03/27/21 04:56 Dose: 15 mg Documented by: Levalbuterol HCl (Levalbuterol Tartrate 15 Gm Hfa.Aer.Ad) 2 puffs INH Q8R PRN PRN Reason: dyspnea Stop: 04/23/21 19:21 Last Admin: 03/27/21 02:32 Dose: 2 puffs Documented by: Melatonin (Melatonin 3 Mg Tab) 5 mg PO HS PRN PRN Reason: Sleep Stop: 04/23/21 18:38 Last Admin: 03/25/21 23:22 Dose: 5 mg Documented by: Morphine Sulfate (Morphine Sulfate 2 Mg/Ml Carp) 2 mg IV Q3H PRN PRN Reason: Pain Stop: 04/08/21 10:59 Last Admin: 03/27/21 09:59 Dose: 2 mg Documented by: Ondansetron HCl (Ondansetron Inj 2 Mg/Ml 2 Ml Vial) 4 mg IV Q6H PRN PRN Reason: Nausea Stop: 04/22/21 19:41 Last Admin: 03/24/21 08:58 Dose: 4 mg Documented by: Pantoprazole Sodium (Pantoprazole 40 Mg Tab) 40 mg PO [facility] Stop: 04/24/21 17:14 Last Admin: 03/27/21 07:49 Dose: 40 mg Documented by: Thiamine HCl (Thiamine Hcl 100 Mg Tab) 100 mg PO [facility] Stop: 04/23/21 08:59 Last Admin: 03/27/21 07:50 Dose: 100 mg Documented by: Resident Activity Tracking Resident Involvement: Resident Care Provided Care Provided: Adult Hospital Medicine
[2021-03-27] MEDS: MAGNESIUM SULFATE / D5W 1 GM/100 ML BAG IV SCH ×2 (08:17→10:33)
[2021-03-27] MEDS ORDERED: LORazepam 3 MG/6 ML VIAL IV PRN (10:06)
[2021-03-27] MEDS: LORazepam 2 MG/4 ML VIAL IV PRN (10:33)
--- NOTE | 2021-03-27 10:58 | Critical Care Progress Note ---
Date of Service March 27, 2021 Assessment & Plan (1) Alcohol withdrawal: (2) Acute delirium: (3) Combative behavior: (4) Seizure: Plan: --Agitated delirium --> improving Likely from alcohol withdrawal Patient's last drink was on 03/23/2021, Tylenol which falls into 48 h very when usually finds the symptoms Alcohol level 03/23/2021: 260 Ethanol level on average on previous admission has been around 250-300 She has gone a total of 100 mg of Librium, 18 mg of Ativan prior to coming to the ICU Keep the patient RASS -1 If there is any clinical deterioration in the patient's mental status or severe agitation we will plan to intubate --Lower back tenderness Patient did have CT abdomen pelvis with did not show any skeletal abnormalities No signs of pyelonephritis UA to 02/22/21 Continue with pain management --Epigastric tenderness --> resolved Amylase 113 AST/ALT within normal limit Alk phos within normal limit CT abdomen pelvis shows possibility of mild pancreatitis Gastritis from alcohol use can also be a possibility --Questionable history of seizures No witnessed seizures while in the hospital I will hold back on the seizure medication currently If the patient has any more seizures and I will start the patient on Keppra --History of anxiety Restart Lexapro --Active smoker Advised to quit --Left upper lobe pulmonary nodule Appreciated with CT chest on 08/17/2020 and again on 02/17/[address] in 1 year Plan: In/out: +1.2 L, we do not have a urine output measured Patient's mental status has significantly improved She is calm and composed. I will discontinue the standing IV Ativan and rather increase her p.o. Librium to 25 mg every 8 hours. Recommend titrating it off gradually on the floor Would still recommend giving Ativan on as-needed basis Patient is stable enough to be downgraded to medical floor Please note the above document was generated using voice recognition software. It may contain grammatical, syntax or spelling errors.Any formal questions or concerns about the content, text or information contained within the body of this dictation should be directly addressed to the provider for clarification. Admission and Anticipated Discharge Date Admission Date: March 23, 2021 Subjective Patient seen and examined at bedside. No acute distress, no adverse events overnight. Patient has been off Precedex since 2 AM. She was started on Ativan 3 mg every 6 hours last night. She is very calm and composed today Answering all the questions appropriately Does complain of back pain. Mild dysuria No fever or chills Was able to tolerate diet without any issues, no headache, no blurry vision. Review of Systems Review of Systems: All systems reviewed & are unremarkable except as noted in Subjective Physical Exam Physical Exam: Constitutional: No acute distress HEENT: EOMI, PERRLA Respiratory system: Good air entry bilaterally, no wheeze, no rhonchi, no crackles CVS: S1-S2 positive, no murmurs or gallops Abdomen: Soft, nondistended, positive bowel sounds x4, obese, epigastric tenderness, no rebound, lower back tenderness on palpation Extremities: +2 pulses bilaterally radialis/ dorsalis pedis, no cyanosis, no edema Neuro: Awake alert oriented x3 Psych: Normal mood and affect G/U: No [place] Skin: no rashes, warm and dry Lymphatic: no cervical or axillary lymphadenopathy Results & Data Results & Data ([facility]) Vital Signs (Past 12 Hours) Vital Signs Temp Pulse Pulse Resp BP Pulse Ox 03/27/21 09:23 36.9 C 03/27/21 08:04 82 15 87 L 03/27/21 08:00 82 14 144/75 H 96 03/27/21 07:00 58 L 20 117/58 L 96 03/27/21 06:00 50 L 19 84/63 L 95 03/27/21 05:01 60 106/82 95 03/27/21 05:00 62 93 03/27/21 04:02 62 19 93/46 L 94 03/27/21 04:00 61 18 91 03/27/21 03:00 66 21 108/73 96 03/27/21 02:37 71 19 107/62 96 03/27/21 02:34 67 20 96 03/27/21 02:01 59 L 22 89/57 L 95 03/27/21 02:00 62 24 92 03/27/21 01:02 61 26 H 128/90 03/27/21 01:00 60 19 03/27/21 00:52 46 L 15 134/62 98 03/27/21 00:00 44 L 19 98 03/26/21 23:00 50 L 19 98 Laboratory Results 03/27/21 04:25 03/27/21 04:25 [place] [address] Subseq Hosp Care Lvl 3 Patient Type Established Diagnoses Alcohol withdrawal F10.239 Acute delirium R41.0 Combative behavior R46.89 Seizure R56.9
[2021-03-27] MEDS ORDERED: CHLORDIAZEPOXIDE 25MG 3RD DOSE PO SCH (14:00)
[2021-03-27] MEDS ORDERED: OLANZapine 10 MG TAB PO ONE (15:01)
[2021-03-27] MEDS ORDERED: OLANZapine 5 MG TABLET PO PRN (15:02)
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
[2021-03-27] MEDS ORDERED: KETOROLAC 30 MG/ML VIAL IV PRN (17:12)
[2021-03-27] MEDS ORDERED: KETOROLAC 30 MG/ML VIAL IV ONE (17:12)
[2021-03-27] MEDS ORDERED: MoRPHine SULFATE 4 MG/ML 1 ML CARP\\VIAL IV STA (17:34)
--- NOTE | 2021-03-27 19:55 | Discharge Summary ---
Date of Service March 27, 2021 Admission HPI Per Admitting Provider This is a 36-year-old female with past medical history of chronic alcoholism that presents today with a chief complaint of multiple seizures. Patient was seen in her room, she is awake but is not providing much history. Therefore, buccal history of per ER documentation. ER physician tells me that the patient was on a Zoom phone call with her sister earlier today. Patient had multiple seizures as witnessed by the sister. She became incontinent of urine. She did not fall per patient. Patient had no tongue trauma. She has no recollection of any events and I was not able to get any firsthand history out of her. Of note, she was in the ER on 03/22 after she had multiple seizures. She had apparently been prescribed Depakote but did not been taking his medication secondary to insurance concerns. I do also see a previous admission about 1 month ago with the patient had possibly injected some sort of drugs into her diet as witnessed by the sister. I do see a UDS was ordered in the ER today but is not yet been collected. The time my arrival, the patient of the lights off. She did mother some answers to me but there were only 1 word answers and admittedly to had no recollection of events. Before I left, she asked me for more benzodiazepines for the shaking before falling back asleep. Principal Diagnosis Alcohol withdrawal Discharge Exam General she is awake and alert anxious but appears in no distress. With conversation she columns quite quickly. HEENT normocephalic atraumatic mucous membranes moist. Breathing unlabored no accessory muscle use good effort. Skin shows no rashes no pallor or icterus. Neuro shows cranial nerves II through XII be grossly intact gross motor and sensory intact. Musculoskeletal/osteopathic shows her to have significant left sided pelvic stabilizer (region of piriformis) tenderness high tone, decreased range of motionpost isometric relaxation and L a S done with improvement in tissue texture. Was quite tender, but overall patient tolerated well. (This was done due to her concerns of predominantly left-sided low back pain that evaluated to be biomechanical) Discharge Data Allergies Allergy/AdvReac Type Severity Reaction Status Date / Time amoxicillin Allergy Intermediate Hives Verified 03/22/21 19:38 clavulanic acid Allergy Intermediate Hives Verified 03/22/21 19:38 [From Augmentin] Penicillins Allergy Intermediate Hives Verified 03/22/21 19:38 sulfamethoxazole Allergy Intermediate Hives Verified 03/22/21 19:38 [From Septra] trimethoprim [From Septra] Allergy Intermediate Hives Verified 03/22/21 19:38 famotidine [From Pepcid] Allergy Mild Red Skin Unverified 03/22/21 19:38 Splotches Consultations 03/23/21 15:41 ED Decision to Admit Stat 03/25/21 20:38 Consult Master Rigger Routine 03/27/21 10:15 Consult Psychiatry Routine Ordered Studies 03/25/21 09:08 CT abd pelvis wo con Stat Hospital Course (1) Alcohol withdrawal: 36yo female with a history of alcohol use disorder, alcohol withdrawal, and alcohol withdrawal seizures presents with seizure-like activity in the setting of alcohol withdrawal. Seizure-like activity, alcohol withdrawal, agitation, delirium: - Unwitnessed seizure activity suspected secondary to alcohol withdrawal; low suspicion for underlying seizure disorder though not entirely excluded; no seizure activity witnessed since admission -Had no further seizure activity, no clear need for chronic anticonvulsant. Recommend alcohol cessation. Would be reasonable to get MRI brain to rule out more definitively any structural brain diseaseCT was reassuring. Was planning on doing this during her admission once she was passed her withdrawal, but she left AMA instead. Delusions/paranoia: -See psych consult, Zyprexa restarted. Back pain: -Biomechanicalstory fits with a lumbosacral strain, exam consistent with piriformis dysfunctionwith pelvic somatic dysfunction, OMT as above. Would probably benefit from outpatient OMT as well. She was improving, had capacity to make her own decisions, and while when I talked with her about staying, I conveyed to her that getting a little bit further removed from alcohol withdrawal (given that she was needing still fairly high doses of benzodiazepines) and giving her Zyprexa a little bit more time to kick in before she is on her own would be the preferred course of action (noting that it would likely lead to a discharge tomorrow) within less than an hour of when I had left her room she had left AMA. Total Time Total Time Spent Total Time Spent (In Minutes): <30 Discharge Plan Discharge Items Patient Disposition: Against Medical Advice Reason For Visit: ALCOHOL WITHDRAWAL/SEIZURES Condition on Discharge: Fair Activity: Per Instructions section Non-emergency contact: Psychiatrist Follow-up/Referrals: PCP,NO [Primary Care Provider] - Pending Studies at Discharge: No Stand-Alone Forms: My [facility], Work/School Release, Smoking Cessation Medications and DC Order Prescriptions: Continued docusate sodium [Colace] 100 mg capsule 100 mg PO BID PRN (Reason: Constipation) RF: 0 buprenorphine-naloxone 8-2 mg film 2 film sublingual DAILY RF: 0 thiamine HCl (vitamin B1) [Vitamin B-1] 100 mg Tablet 100 mg PO QAM Qty: 30 RF: 0 folic acid 1 mg Tablet 1 mg PO QAM Qty: 30 RF: 0 Discharge Orders: Left Against Medical Advice (Routine); Ordered 03/27/21 Ordered By: Oren Barroso Admission Data Admit Date/Time: 03/23/21 18:21 Attending Provider: Medhat Morgan Admit Provider: Yvon New Primary Care Provider: PCP,NO Other Providers: Yvon New ; Rolando Melo Erica K. ; Anais Juarez ; Yani Bass ; Robin Mtichell Other Interventions: Discharge Summary Assessment (RN) Last Done: 03/27/21 18:09 Coding Level of Care Code D/C DAY MANAGEMENT <30 MINS Diagnoses Alcohol withdrawal F10.239
--- NOTE | 2021-03-27 19:55 | Hospitalist Progress Note ---
Date of Service March 27, 2021 Assessment & Plan Admission and Anticipated Discharge Date Admission Date: March 23, 2021 Results & Data Results & Data ([facility]) Vital Signs (Past 12 Hours) Vital Signs Temp Pulse Pulse Resp BP BP Pulse Ox 03/27/21 18:09 98.8 F 84 16 139/78 97 03/27/21 16:33 98.8 F 03/27/21 16:12 84 16 97 03/27/21 12:00 113 H 19 141/79 H 97 03/27/21 11:15 79 19 03/27/21 09:23 98.4 F 03/27/21 08:04 82 15 87 L 03/27/21 08:00 82 14 144/75 H 96 PG Care Time/CCT Total # of Minutes Spent Total Time Spent with Patient: Total time spent is greater than 50% in coordination of care (as documented) at patient's floor/unit and/or counseling patient: Coding Level of Care Code None CPT Codes Musculoskeletal - Musculoskeletal: 53[address] Osteo Robin Tr 1-2 Body regions ([id number])
[2021-03-27] MEDS ORDERED: OLANZapine 5 MG TABLET PO SCH (21:00)
== END 2021-03-27 18:19 | disposition left against medical advice (07) | DRG 894 ==
LOC: ED 13:39 → 2S 18:21 → SUATTDRO 18:21 → 2S 19:14 → 1E 03-25 16:39